=== PATIENT | female | born 1955 | race Caucasian/White ===

== ENCOUNTER → 2019-05-06 08:19 | Outpatient (BNVA) | payer MEDICARE, MEDICAID, SELFPAY | PROVIDERS: Family Provider Family Medicine; PCP Family Medicine; Visit Provider Nurse Practitioner Psychiatric/Mental Health | DX: F33.2 Major depressive disorder, recurrent severe without psychotic features (principal); F41.1 Generalized anxiety disorder; F43.12 Post-traumatic stress disorder, chronic; F17.210 Nicotine dependence, cigarettes, uncomplicated; Z63.4 Disappearance and death of family member | CPT/HCPCS: 99214 ==

== ENCOUNTER 2019-05-08 18:47 | Inpatient (IN) | payer MEDICARE, MEDICAID, SELFPAY ==
[2019-05-08 18:59] VITALS: BP 154/96; PULSE 84; RESP 17; TEMP 36.7; O2SAT 97; BMI 23.1
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
[2019-05-08 19:41] LABS: Basophils # 0.1 10^3/uL (0.0-0.1); Basophils % 0.7 %; Eosinophils # 0.2 10^3/uL (0.0-0.8); Eosinophils % 2.3 %; Hematocrit 42.7 % (37.0-47.0); Hemoglobin 14.1 g/dL (11.5-15.3); Lymphocytes # 2.8 10^3/uL (0.8-4.8); Lymphocytes % 37.4 %; Mean Corpuscular Hemoglobin 32.7 pg (28.0-34.0); Mean Corpuscular Volume 99.1 fL (81-99); Mean Platelet Volume 12.2 fL (7.4-10.4); Monocytes # 0.6 10^3/uL (0.2-0.9); Monocytes % 7.7 %; Neutrophils # 3.8 10^3/uL (1.8-7.7); Neutrophils % 51.8 %; Nucleated Red Blood Cells % 0 %; Platelet Count 196 10^3/cmm (130-400); Red Blood Count 4.31 10^6/uL (4.1-5.3); Red Cell Distribution Width 11.8 % (12.1-15.1); White Blood Count 7.4 10^3/uL (4.0-10.0)
[2019-05-08] MEDS: LORazepam 2 mg/mL INJ 1 mL IM (19:49)
--- NOTE | 2019-05-08 19:51 | PC.NURSE ---
patient refused morphine stating that it makes her itch all over.
[2019-05-08 20:00] VITALS: RESP 16; O2SAT 96
[2019-05-08] MEDS: fentaNYL 50 mcg/mL INJ 2mL IVP (20:00)
[2019-05-08 20:03] VITALS: BP 145/94; PULSE 77; RESP 16; O2SAT 98
--- NOTE | 2019-05-08 20:04 | PC.NURSE ---
fentanyl 50mcg given IM in the right deltoid at 2000
[2019-05-08 20:07] LABS: Alanine Aminotransferase 12 U/L (0-33); Albumin Level 4.9 g/dL (3.5-5.2); Alcohol Level 95 mg/dL (0-10); Alkaline Phosphatase 86 IU/L (35-105); Aspartate Amino Transferase 23 U/L (0-32); Blood Urea Nitrogen 9 mg/dL (8-23); Calcium 10.2 mg/dL (8.5-10.5); Carbon Dioxide 25 mmol/L (22-29); Chloride 103 mmol/L (98-107); Globulin 3.1 g/dL (1.3-4.6); Glomerular Filtration Rate 56.4 mL/min (90-130); Glucose 100 mg/dL (74-106); Sodium 139 mmol/L (136-145); Thyroid Stimulating Hormone 3.64 uIU/mL (0.27-4.20); Total Bilirubin 0.2 mg/dL (0.15-1.2)
[2019-05-08 20:08] LABS: Add Urine Microscopic? NO
[2019-05-08 20:11] LABS: Acetaminophen < 5.0 ug/mL (10-30); Salicylate < 0.3 mg/dL (3-10)
[2019-05-08 20:14] LABS: Amphetamines Screen Urine Negative (Negative); Barbiturates Screen Urine Negative (Negative); Benzodiazepines Screen Urine Positive (Negative); Bilirubin Urine Neg (NEGATIVE); Blood Urine Neg (Negative); Cocaine Screen Urine Negative (Negative); Glucose Urine UA Norm (Normal); Ketones Urine Negative (Negative); Leukocyte Esterase Urine Negative (Negative); Nitrate Urine Negative (Negative); Opiate Screen Urine Negative (Negative); PCP Screen Urine Negative (Negative); Protein Urine Neg (Negative); THC Screen Urine Negative (Negative); Urine Appearance Clear (CLEAR); Urine Color Yellow (Yellow); Urobilinogen Urine Norm (Negative); pH Urine 5 (5-7)
[2019-05-08 21:01] VITALS: PULSE 76; RESP 16; O2SAT 95
[2019-05-08 21:14] VITALS: BP 121/84; PULSE 72; RESP 16; O2SAT 97
--- NOTE | 2019-05-08 21:49 | PC.NURSE ---
Patient asked for something to sleep, walked to nurses station then refused trazodone and went back t her room.
[2019-05-08 22:00] VITALS: BP 137/91; PULSE 74; RESP 17; TEMP 36.7; O2SAT 96
[2019-05-09 06:00] VITALS: BP 125/87; PULSE 79; RESP 18; TEMP 36.7; O2SAT 98
[2019-05-09] MEDS: multivitamin therapeutic Tablet 1 TAB PO (09:13)
[2019-05-09] MEDS: folic acid 1 mg Tablet PO (09:14)
[2019-05-09] MEDS: thiamine 100 mg Tablet PO (09:14)
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
[2019-05-09 13:41] VITALS: O2SAT 87
[2019-05-09] MEDS: venlafaxine ER (24HR) 75 mg Capsule PO (15:48)
[2019-05-09] MEDS: venlafaxine ER (24HR) 150 mg Capsule PO (15:48)
[2019-05-09] MEDS: ALPRAZolam 0.5 mg Tablet PO ×2 (15:49→18:34)
[2019-05-09] MEDS: metoprolol tartrate 25 mg Tablet PO (17:33)
[2019-05-09] MEDS: trazodone 150 mg Tablet 300 MG PO (20:57)
[2019-05-09 22:00] VITALS: BP 135/88; PULSE 70; RESP 20; TEMP 36.8; O2SAT 96
[2019-05-10] MEDS: venlafaxine ER (24HR) 150 mg Capsule PO (05:54)
[2019-05-10] MEDS: venlafaxine ER (24HR) 75 mg Capsule PO (05:54)
[2019-05-10 06:00] VITALS: BP 127/85; PULSE 76; RESP 18; TEMP 36.7; O2SAT 96
[2019-05-10] MEDS: metoprolol tartrate 25 mg Tablet PO ×2 (08:36→17:47)
[2019-05-10] MEDS: thiamine 100 mg Tablet PO (08:36)
[2019-05-10] MEDS: ALPRAZolam 0.5 mg Tablet PO ×2 (08:36→17:47)
[2019-05-10] MEDS: multivitamin therapeutic Tablet 1 TAB PO (08:37)
[2019-05-10] MEDS: folic acid 1 mg Tablet PO (08:37)
[2019-05-10] MEDS: ARIPiprazole 10 mg Tablet 5 MG PO (08:39)
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
[2019-05-10 14:00] VITALS: BP 137/91; PULSE 80; RESP 16; TEMP 36.9; O2SAT 97
[2019-05-10] MEDS: trazodone 150 mg Tablet 300 MG PO (20:53)
[2019-05-10 21:15] VITALS: BP 116/58; PULSE 77; RESP 20; TEMP 36.8; O2SAT 95
[2019-05-11 06:00] VITALS: BP 115/76; PULSE 87; RESP 20; TEMP 36.8; O2SAT 96
[2019-05-11] MEDS: venlafaxine ER (24HR) 150 mg Capsule PO (06:13)
[2019-05-11] MEDS: venlafaxine ER (24HR) 75 mg Capsule PO (07:55)
[2019-05-11] MEDS: metoprolol tartrate 25 mg Tablet PO (08:42)
[2019-05-11] MEDS: thiamine 100 mg Tablet PO (08:42)
[2019-05-11] MEDS: multivitamin therapeutic Tablet 1 TAB PO (08:42)
[2019-05-11] MEDS: ALPRAZolam 0.5 mg Tablet PO (08:43)
[2019-05-11] MEDS: ARIPiprazole 10 mg Tablet 5 MG PO (08:43)
[2019-05-11] MEDS: folic acid 1 mg Tablet PO (08:43)
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
[2019-05-11 12:18] VITALS: BP 115/76; PULSE 87; RESP 20; TEMP 36.8; O2SAT 96
[2019-05-11 12:21] VITALS: BP 115/76; PULSE 87; RESP 20; TEMP 36.8; O2SAT 96
== END 2019-05-11 13:32 | disposition home or self-care (01) | DRG 885 ==
LOC: ER 19:10 → NP 20:59
PROVIDERS: Admitting Provider Psychiatry & Neurology Psychiatry; Emergency Provider Family Medicine; Family Provider Family Medicine; PCP Family Medicine; Visit Provider Psychiatry & Neurology Psychiatry
DX: F33.2 Major depressive disorder, recurrent severe without psychotic features (principal); R45.851 Suicidal ideations; F41.1 Generalized anxiety disorder; F43.12 Post-traumatic stress disorder, chronic; Z63.4 Disappearance and death of family member; F17.210 Nicotine dependence, cigarettes, uncomplicated
CPT/HCPCS: 12345; 80053; 80307; 81003; 84443; 85025; 96372; 96374; 99214; 99284; J2060; J3010

== ENCOUNTER → 2019-06-15 11:55 | Outpatient (BNVA) | payer MEDICARE, MEDICAID, SELFPAY | PROVIDERS: Family Provider Family Medicine; PCP Family Medicine; Visit Provider Family Medicine | DX: I10 Essential (primary) hypertension (principal); E11.9 Type 2 diabetes mellitus without complications; M54.40 Lumbago with sciatica, unspecified side | CPT/HCPCS: 80053; 80061; 82044; 85025 ==

== ENCOUNTER → 2019-06-17 08:35 | Outpatient (BNVA) | payer MEDICARE, MEDICAID, SELFPAY | PROVIDERS: Family Provider Family Medicine; PCP Family Medicine; Visit Provider Nurse Practitioner Psychiatric/Mental Health | DX: F33.2 Major depressive disorder, recurrent severe without psychotic features (principal); F41.1 Generalized anxiety disorder; F43.12 Post-traumatic stress disorder, chronic; F17.210 Nicotine dependence, cigarettes, uncomplicated; Z63.4 Disappearance and death of family member | CPT/HCPCS: 83036; 99214 ==

== ENCOUNTER → 2019-07-13 08:44 | Outpatient (BNVA) | payer MEDICARE, MEDICAID, SELFPAY | PROVIDERS: Family Provider Family Medicine; PCP Family Medicine; Visit Provider Nurse Practitioner Psychiatric/Mental Health | DX: F33.2 Major depressive disorder, recurrent severe without psychotic features (principal); F41.1 Generalized anxiety disorder; F43.12 Post-traumatic stress disorder, chronic; F17.210 Nicotine dependence, cigarettes, uncomplicated; Z63.4 Disappearance and death of family member | CPT/HCPCS: 99214 ==

== ENCOUNTER → 2019-08-10 08:15 | Outpatient (BNVA) | payer MEDICARE, MEDICAID, SELFPAY | PROVIDERS: Family Provider Family Medicine; PCP Family Medicine; Visit Provider Nurse Practitioner Psychiatric/Mental Health | DX: F33.2 Major depressive disorder, recurrent severe without psychotic features (principal); F41.1 Generalized anxiety disorder; F43.12 Post-traumatic stress disorder, chronic; F17.210 Nicotine dependence, cigarettes, uncomplicated; Z63.4 Disappearance and death of family member | CPT/HCPCS: 99214 ==

== ENCOUNTER → 2019-09-07 08:11 | Outpatient (BNVA) | payer MEDICARE, MEDICAID, SELFPAY ==
[2019-06-22 14:36] VITALS: BP 116/83; BMI 22.4
== END ==
PROVIDERS: Family Provider Family Medicine; PCP Family Medicine; Visit Provider Nurse Practitioner Psychiatric/Mental Health
DX: E78.5 Hyperlipidemia, unspecified (principal); F33.2 Major depressive disorder, recurrent severe without psychotic features; F41.1 Generalized anxiety disorder; F43.12 Post-traumatic stress disorder, chronic; F17.210 Nicotine dependence, cigarettes, uncomplicated; Z63.4 Disappearance and death of family member
CPT/HCPCS: 80053; 99214

== ENCOUNTER → 2019-10-07 07:40 | Outpatient (BNVA) | payer MEDICARE, MEDICAID, SELFPAY ==
[2019-09-07 08:30] VITALS: BP 116/83; BMI 22.4
== END ==
PROVIDERS: Family Provider Family Medicine; PCP Family Medicine; Visit Provider Nurse Practitioner Psychiatric/Mental Health
DX: F33.2 Major depressive disorder, recurrent severe without psychotic features (principal); F41.1 Generalized anxiety disorder; F43.12 Post-traumatic stress disorder, chronic; F17.210 Nicotine dependence, cigarettes, uncomplicated; Z63.4 Disappearance and death of family member; F33.42 Major depressive disorder, recurrent, in full remission
CPT/HCPCS: 99214

== ENCOUNTER → 2019-10-19 13:02 | Outpatient (BNVA) | payer MEDICARE, MEDICAID, SELFPAY ==
[2019-09-07 08:30] VITALS: BP 116/83; BMI 22.4
== END ==
PROVIDERS: Family Provider Family Medicine; PCP Family Medicine; Visit Provider Family Medicine
DX: E78.5 Hyperlipidemia, unspecified (principal); N26.1 Atrophy of kidney (terminal); F17.210 Nicotine dependence, cigarettes, uncomplicated
CPT/HCPCS: 80053; 80061

== ENCOUNTER 2019-10-20 07:25 | Outpatient (CLI) | payer MEDICARE, MEDICAID, SELFPAY ==
[2019-09-07 08:30] VITALS: BP 116/83; BMI 22.4
--- NOTE | 2019-10-20 08:30 | CT_ITS ---
WS: [id number] LDCT LUNG CANCER SCREENING TECHNIQUE: Noncontrast CT of the chest with coronal and sagittal reformatted images. CLINICAL INFORMATION: CT LUNG SCREENING COMPARISON: None. DLP: 81.71 mGy.cm DIvol: 2.[address] scans at [facility] use at least one of these dose optimization techniques: automat ed exposure control; mA and/or kV adjustment per patient size (includes targeted exams where dose is matched to clinical indication); or iterative reconstruction. FINDINGS: No suspicious pulmonary parenchymal abnormalities. Subsegmental atelectasis in the lung bases. No med iastinal or hilar lymphadenopathy. Vascular calcification no axillary lymphadenopathy. Mild compressi on fracture L1 superior endplate. Recommend correlation for low back pain. This appears new since CT abdomen pelvis CT/CT lung screening [id number] IMPRESSION: LUNG-RADS: 1-Negative FOLLOW UP: 12 Month: Continue annual screening with LDCT
--- NOTE | 2019-10-20 08:55 | MM_ITS ---
WS: [id number] Bilateral screening digital mammogram, 10/20/2019 Clinical Data: SCREENING Comparison: 09/30/2018, 09/11/2017, 08/21/2017, 08/12/2016. Findings: The breast parenchymal pattern shows fibroglandular tissue. No spiculated masses or clustered calcifi cations are seen. There are no secondary signs of carcinoma. MM/[place] [id number] Impression: 1. Negative bilateral mammogram unchanged. 2. Recommend annual screening mammograms. BIRADS: 1-Negative FOLLOW UP: 1 Year Follow-up The CAD relay checker was used.
== END 2019-10-20 07:26 | disposition home or self-care (01) ==
LOC: CT 07:26
PROVIDERS: PCP Family Medicine; Visit Provider Family Medicine
DX: Z12.31 Encounter for screening mammogram for malignant neoplasm of breast (principal); F17.210 Nicotine dependence, cigarettes, uncomplicated
CPT/HCPCS: 77067; G0297

== ENCOUNTER → 2019-11-04 07:26 | Outpatient (BNVA) | payer MEDICARE, MEDICAID, SELFPAY ==
[2019-09-07 08:30] VITALS: BP 116/83; BMI 22.4
== END ==
PROVIDERS: PCP Family Medicine; Visit Provider Nurse Practitioner Psychiatric/Mental Health
DX: F33.2 Major depressive disorder, recurrent severe without psychotic features (principal); F41.1 Generalized anxiety disorder; F43.12 Post-traumatic stress disorder, chronic; F17.210 Nicotine dependence, cigarettes, uncomplicated; Z63.4 Disappearance and death of family member
CPT/HCPCS: 99214

== ENCOUNTER → 2019-12-09 10:26 | Outpatient (BNVA) | payer MEDICARE, MEDICAID, SELFPAY ==
[2019-09-07 08:30] VITALS: BP 116/83; BMI 22.4
== END ==
PROVIDERS: PCP Family Medicine; Visit Provider Nurse Practitioner Psychiatric/Mental Health
DX: F33.2 Major depressive disorder, recurrent severe without psychotic features (principal); F41.1 Generalized anxiety disorder; F43.12 Post-traumatic stress disorder, chronic; F17.210 Nicotine dependence, cigarettes, uncomplicated; Z63.4 Disappearance and death of family member
CPT/HCPCS: 99213

== ENCOUNTER → 2020-01-11 11:07 | Outpatient (BNVA) | payer MEDICARE, MEDICAID, SELFPAY ==
[2019-09-07 08:30] VITALS: BP 116/83; BMI 22.4
== END ==
PROVIDERS: PCP Family Medicine; Visit Provider Family Medicine
DX: I10 Essential (primary) hypertension (principal)
CPT/HCPCS: 80053; 80061; 82043; 85025

== ENCOUNTER → 2020-02-15 07:47 | Outpatient (BNVA) | payer MEDICARE, MEDICAID, SELFPAY ==
[2019-09-07 08:30] VITALS: BP 116/83; BMI 22.4
== END ==
PROVIDERS: PCP Family Medicine; Visit Provider Nurse Practitioner Psychiatric/Mental Health
DX: F33.2 Major depressive disorder, recurrent severe without psychotic features (principal); F41.1 Generalized anxiety disorder; F43.12 Post-traumatic stress disorder, chronic; F17.210 Nicotine dependence, cigarettes, uncomplicated; Z63.4 Disappearance and death of family member
CPT/HCPCS: 99213

== ENCOUNTER → 2020-05-16 07:36 | Outpatient (BNVA) | payer MEDICARE, MEDICAID, SELFPAY ==
[2019-09-07 08:30] VITALS: BP 116/83; BMI 22.4
== END ==
PROVIDERS: PCP Family Medicine; Visit Provider Nurse Practitioner Psychiatric/Mental Health
DX: F33.2 Major depressive disorder, recurrent severe without psychotic features (principal); F41.1 Generalized anxiety disorder; F43.12 Post-traumatic stress disorder, chronic; F17.210 Nicotine dependence, cigarettes, uncomplicated; Z63.4 Disappearance and death of family member; Z79.899 Other long term (current) drug therapy
CPT/HCPCS: 99214

== ENCOUNTER → 2020-07-04 11:08 | Outpatient (BNVA) | payer OTHER, SELFPAY ==
[2019-09-07 08:30] VITALS: BP 116/83; BMI 22.4
== END ==
PROVIDERS: PCP Family Medicine; Visit Provider Nurse Practitioner Psychiatric/Mental Health
DX: Z79.899 Other long term (current) drug therapy (principal)
CPT/HCPCS: 80061; 83036

== ENCOUNTER → 2020-11-01 07:04 | Outpatient (BNVA) | payer MEDICARE, MEDICAID, SELFPAY ==
[2020-07-05 09:54] VITALS: BP 123/86; BMI 20.9
== END ==
PROVIDERS: PCP Family Medicine; Visit Provider Nurse Practitioner Psychiatric/Mental Health
DX: F33.2 Major depressive disorder, recurrent severe without psychotic features (principal); F41.1 Generalized anxiety disorder; F43.12 Post-traumatic stress disorder, chronic; F17.210 Nicotine dependence, cigarettes, uncomplicated; Z63.4 Disappearance and death of family member
CPT/HCPCS: 99214

== ENCOUNTER → 2021-01-01 07:26 | Outpatient (BNVA) | payer MEDICARE, MEDICAID, SELFPAY ==
[2020-07-05 09:54] VITALS: BP 123/86; BMI 20.9
== END ==
PROVIDERS: PCP Family Medicine; Visit Provider Nurse Practitioner Psychiatric/Mental Health
DX: F33.2 Major depressive disorder, recurrent severe without psychotic features (principal); F41.1 Generalized anxiety disorder; F43.12 Post-traumatic stress disorder, chronic; F17.210 Nicotine dependence, cigarettes, uncomplicated; Z63.4 Disappearance and death of family member
CPT/HCPCS: 99214

== ENCOUNTER → 2021-01-12 13:47 | Outpatient (BNVA) | payer MEDICARE, MEDICAID, SELFPAY ==
[2020-07-05 09:54] VITALS: BP 123/86; BMI 20.9
== END ==
PROVIDERS: PCP Family Medicine; Visit Provider Family Medicine
DX: I10 Essential (primary) hypertension (principal); N39.41 Urge incontinence; R60.0 Localized edema
CPT/HCPCS: 80053; 82043; 85025

== ENCOUNTER → 2021-03-08 08:24 | Outpatient (BNVA) | payer MEDICARE, MEDICAID, SELFPAY ==
[2020-07-05 09:54] VITALS: BP 123/86; BMI 20.9
== END ==
PROVIDERS: PCP Family Medicine; Visit Provider Nurse Practitioner Psychiatric/Mental Health
DX: F33.2 Major depressive disorder, recurrent severe without psychotic features (principal); F41.1 Generalized anxiety disorder; F43.12 Post-traumatic stress disorder, chronic; F17.210 Nicotine dependence, cigarettes, uncomplicated; Z63.4 Disappearance and death of family member
CPT/HCPCS: 99214

== ENCOUNTER → 2021-04-19 07:41 | Outpatient (BNVA) | payer MEDICARE, MEDICAID, SELFPAY ==
[2020-07-05 09:54] VITALS: BP 123/86; BMI 20.9
== END ==
PROVIDERS: PCP Family Medicine; Visit Provider Nurse Practitioner Psychiatric/Mental Health
DX: F33.2 Major depressive disorder, recurrent severe without psychotic features (principal); F41.1 Generalized anxiety disorder; F43.12 Post-traumatic stress disorder, chronic; F17.210 Nicotine dependence, cigarettes, uncomplicated; Z63.4 Disappearance and death of family member
CPT/HCPCS: 99214

== ENCOUNTER → 2021-06-21 07:40 | Outpatient (BNVA) | payer MEDICARE, MEDICAID, SELFPAY ==
[2020-07-05 09:54] VITALS: BP 123/86; BMI 20.9
== END ==
PROVIDERS: PCP Family Medicine; Visit Provider Nurse Practitioner Psychiatric/Mental Health
DX: F33.2 Major depressive disorder, recurrent severe without psychotic features (principal); F41.1 Generalized anxiety disorder; F43.12 Post-traumatic stress disorder, chronic; F17.210 Nicotine dependence, cigarettes, uncomplicated; Z63.4 Disappearance and death of family member
CPT/HCPCS: 99214

== ENCOUNTER → 2021-08-08 13:52 | Outpatient (BNVA) | payer MEDICARE, MEDICAID, SELFPAY ==
[2020-07-05 09:54] VITALS: BP 123/86; BMI 20.9
== END ==
PROVIDERS: PCP Family Medicine; Visit Provider Family Medicine
DX: I10 Essential (primary) hypertension (principal); E78.5 Hyperlipidemia, unspecified; K64.8 Other hemorrhoids
CPT/HCPCS: 80053; 80061; 82043; 85025

== ENCOUNTER → 2021-09-14 09:48 | Outpatient (BNVA) | payer MEDICARE, MEDICAID, SELFPAY ==
[2020-07-05 09:54] VITALS: BP 123/86; BMI 20.9
== END ==
PROVIDERS: PCP Family Medicine; Visit Provider Nurse Practitioner Psychiatric/Mental Health
DX: F33.2 Major depressive disorder, recurrent severe without psychotic features (principal); F41.1 Generalized anxiety disorder; F43.12 Post-traumatic stress disorder, chronic; F17.210 Nicotine dependence, cigarettes, uncomplicated; Z79.899 Other long term (current) drug therapy; Z63.4 Disappearance and death of family member
CPT/HCPCS: 99214

== ENCOUNTER 2021-11-05 15:19 | Inpatient (IN) | payer MEDICARE, MEDICAID, SELFPAY ==
[2020-07-05 09:54] VITALS: BP 123/86; BMI 20.9
[2021-11-05] VITALS (9 sets, daily range): BP systolic 106–129; BP diastolic 52–100; PULSE 114–137; RESP 12–20; TEMP 36.7; O2SAT 93–98; BMI 22.6; BMI 22.3
--- NOTE | 2021-11-05 16:43 | ECG_ITS ---
[facility] Test Date: 2021-11-05 Pat Name: Isabelle Lenz Department: Room: Gender: Female Obiee Architect: : 1955 Requested By: Blayne Britton Order Number: [id number] Kobi MD: Desean Alexis M.D. Measurements Intervals [place] Rate: 137 P: PA: QRS: 42 QRSD: 143 T: 71 QT: 305 QTc: 461 Interpretive Statements ATRIAL FLUTTER/TACHYCARDIA WITH RAPID VENTRICULAR RESPONSE INTRAVENTRICULAR CONDUCTION DELAY [130+ ms QRS DURATION] Compared to ECG 01/29/2019 01:34:56 Intraventricular conduction delay now present Sinus rhythm no longer present ST (T wave) deviation no longer present Early repolarization no longer present Electronically Signed On 11-06-2021 7:10:32 CDT by Desean Alexis M.D. [id number] f
--- NOTE | 2021-11-05 16:56 | XRR_ITS ---
PROCEDURE INFORMATION: Exam: XR Chest Exam date and time: 11/05/2021 5:11 PM Age: 65 years old Clinical indication: Cough and dyspnea; Additional info: Dyspnea/cough TECHNIQUE: Imaging protocol: Radiologic exam of the chest. Views: 1 view. COMPARISON: CR Chest 2 views* [id number] 01/29/2019 1:16 AM FINDINGS: Lungs: Emphysematous changes suspected. Pleural spaces: Unremarkable. No pleural effusion. No pneumothorax. Heart/Mediastinum: Unremarkable. No cardiomegaly. Bones/joints: Sternotomy wires, the lower 2 of which appear fractured, similar to prior exam. XR/XR chest 1V portable [id number] IMPRESSION: 1. Negative for infiltrate. 2. Emphysematous changes suspected.
[2021-11-05] MEDS: esmolol drip 2,500 MG/250 ML PREMIX IV (17:23)
--- NOTE | 2021-11-05 17:30 | W.ED.SOB ---
HPI - SOB/Dyspnea General: Chief Complaint: Shortness of Breath/Dyspnea Stated Complaint: right hand and arm pain Time Seen by Provider: 11/05/21 16:43 Source: patient Mode of arrival: ambulatory Limitations: no limitations History of Present Illness: HPI Narrative: 65-year-old female presents emergency room with complaints of chest discomfort with activity. Patient has a known history of coronary artery disease and today presents in the emergency room in [facility] with RVR. She is on metoprolol 12.5 twice daily she does not ever recall having been told she is in A. fib in the past. She has known history of heart disease and previously had a coronary bypass graft she has not seen cardiology for some time. On arrival she states she is comfortable as long as she remained seated but with any minimal activity she will get short of breath and has some chest discomfort. The symptoms began yesterday. MD elicited complaint: shortness of breath and chest pain Pertinent past history: other (History of coronary artery disease) Onset (ago): day(s) Context: occurred during exertion Timing: intermittent Severity: moderate Exacerbating factors: exertion Relieving factors: rest Known history of: COPD Associated symptoms: Reports chest pain; Deny abdominal pain, chest congestion, cough, diaphoresis, dizziness, extremity pain, fever(s), hemoptysis, lightheadedness, myalgias, nausea, orthopnea, palpitations, paresthesias, polydipsia, polyuria, rash, sense of impending doom, syncope or vomiting Treatment prior to arrival: none Review of Systems Const: Denies: fever(s), chills, fatigue, malaise or diaphoresis ENMT: Denies: throat pain, ear or mastoid pain, nasal discharge or nasal congestion Card: Reports: chest pain; Denies: palpitations, lightheadedness, syncope or orthopnea Resp: Denies: dyspnea, productive cough, non-productive cough, wheezing, hemoptysis or chest congestion GI: Denies: abdominal pain, nausea or vomiting : Denies: flank pain, difficulty voiding, dysuria, urinary frequency or urinary urgency Musc: Denies: neck pain, back pain or extremity pain Skin/Breast: Denies: rash or pruritus Neuro: Denies: dizziness Endo: Denies: polyuria or polydipsia PFSH ED PFSH: Medical History Benign essential HTN Bereavement Chronic low back pain with sciatica Chronic post-traumatic stress disorder Enrolled in chronic care management Generalized anxiety disorder Major depressive disorder, recurrent severe without psychotic features Psychiatric care Smoking addiction Surgical History H/O total hysterectomy History of back surgery History of ear surgery History of open heart surgery No pertinent past surgical history Family History Father Heart disease Grandmother Cancer Brother Hepatitis B Other CAD (coronary artery disease) Diabetes Hyperlipidemia Hypertension Psychiatric illness Social History Smoking and tobacco status: current every day smoker cigarettes Packs smoked per day: 1 Years cigarettes smoked: 1 Quit status (tobacco): has tried quititng Number of times tried to quit tobacco: 1 Second hand smoke exposure: Yes Smoking risk assessment/counseling performed?: No Alcohol intake: former Year of sobriety/quit date alcohol: 2020 Desire information about alcohol rehabilitation?: No Adopted: No Caregiver/support person: No Lives independently: Yes Household members: family Housing: House Marital status: / Number of children: 3 Number of grandchildren: 5 Highest education level completed: Associate Degree: Occupational, Technical, Vocational Program Education level 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 ([employer] [facility]) Known or Potential Exposure: None Current occupational status: disabled Pets and animals: Yes Pets & animals: cat(s), dog(s) and guinea pig(s) History of recent travel: No Leisure activites: art and volunteer work Sexually active: No Current gender identity: Female Sharon/Caodaism: Episcopalian Special sharon needs: No Agree to transfusion: Yes Financial difficulty paying for basics: Not Very Hard Female Reproductive History: Para: 3 Spontaneous abortions: Yes Physical Exam Const: GENERAL APPEARANCE: cooperative and comfortable ORIENTATION/CONSCIOUSNESS: Yes awake, Yes oriented to person, Yes oriented to place and Yes oriented to time HENMT: COMMON NORMALS: normocephalic, atraumatic and hearing grossly normal bilaterally HEAD & SCALP: normocephalic and atraumatic Resp: COMMON NORMALS: normal respiratory effort, No retractions, No use of accessory muscles and clear to auscultation bilaterally AUSCULTATION: clear to auscultation bilaterally Cardio: RATE: tachycardic RHYTHM: abnormal rhythm irregularly irregular GI: COMMON NORMALS: Soft to palpation and No hepatosplenomegaly present AUSCULTATION: Yes normoactive bowel sounds PALPATION: Yes Soft to palpation, No Tenderness to palpation present (GI), No Guarding due to palpation present (GI) and Yes No hepatosplenomegaly present Extremity: COMMON NORMALS: normal to inspection, capillary refill normal, no clubbing, cyanosis or edema, no calf tenderness and no pedal edema Neuro: SENSORIUM/ORIENTATION: Yes oriented to person, Yes oriented to place and Yes oriented to time Skin: COMMON NORMALS: no rashes or lesions noted GENERAL SKIN EXAM: no rashes or lesions noted Course Vital Signs: Vital signs: Vital Signs Temperature 98.0 F 11/10/21 12:00 Pulse Rate 66 11/10/21 13:00 Respiratory Rate 16 11/10/21 13:00 Blood Pressure 140/83 11/10/21 13:00 Pulse Oximetry 100 11/10/21 13:00 Oxygen Delivery Me thod 11/10/21 08:00 MDM - SOB/Dyspnea Medical Decision Making New onset A. fib flutter. Started on esmolol. EKG labs and imaging reviewed patient has a history of coronary disease only to be ruled out discussed with hospitalist orders written Medical Records I reviewed the patient's medical records. Lab Data I reviewed the patient's lab results. : 11/09/21 03:03 11/10/21 05:55 Labs/Radiology: Radiology Impressions Chest X-Ray 11/05/21 16:56 IMPRESSION: 1. Negative for infiltrate. 2. Emphysematous changes suspected. Laboratory Results WBC 6.5 10^3/uL (4.0-10.0) 11/05/21 19:48 Corrected WBC Cancelled 11/05/21 18:10 RBC 4.92 10^6/uL (4.1-5.3) 11/05/21 19:48 Hgb 15.0 g/dL (11.5-15.3) 11/05/21 19:48 Hct 43.9 % (37.0-47.0) 11/05/21 19:48 MCV 89.2 fl (81-99) 11/05/21 19:48 MCH 30.5 pg (28.0-34.0) 11/05/21 19:48 MCHC 34.2 g/dL (30.0-36.0) 11/05/21 19:48 RDW 12.9 % (12.1-15.1) 11/05/21 19:48 Plt Count 237 10^3/cmm (130-400) 11/05/21 19:48 MPV 11.4 fL (7.4-10.4) H 11/05/21 19:48 Gran % Cancelled 11/05/21 18:10 Neut % (Auto) 47.3 % 11/05/21 19:48 Lymph % (Auto) 39.6 % 11/05/21 19:48 [place] % (Auto) 10.9 % 11/05/21 19:48 Eos % (Auto) 1.7 % 11/05/21 19:48 Baso % (Auto) 0.5 % 11/05/21 19:48 Neut # (Auto) 3.09 10^3/uL (1.8-7.7) 11/05/21 19:48 Lymph # (Auto) 2.6 10^3/uL (0.8-4.8) 11/05/21 19:48 [place] # (Auto) 0.7 10^3/uL (0.2-0.9) 11/05/21 19:48 Eos # (Auto) 0.1 10^3/uL (0.0-0.8) 11/05/21 19:48 Baso # (Auto) 0.0 10^3/uL (0.0-0.1) 11/05/21 19:48 Absolute Gran (auto) Cancelled 11/05/21 18:10 Nucleated RBC % (auto) 0 % 11/05/21 19:48 Nucleated RBCs # 0.0 /100WBC 11/05/21 19:48 PT 12.40 SECONDS (12.1-14.9) 11/05/21 18:10 INR 0.90 (0.8-1.2) 11/05/21 18:10 APTT 21.1 SECONDS (23.9-36.7) L 11/05/21 18:10 D-Dimer 5.67 ug/mIFEU (0-0.59) H 11/05/21 18:10 Sodium 134 mmol/L (136-145) L 11/05/21 19:48 Potassium 3.3 mmol/L (3.5-5.1) L 11/05/21 19:48 Chloride 97 mmol/L (98-107) L 11/05/21 19:48 Carbon Dioxide 22 mmol/L (22-29) 11/05/21 19:48 Anion Gap 18.3 (5-19) 11/05/21 19:48 BUN 17 mg/dL (8-23) 11/05/21 19:48 Creatinine 1.1 mg/dL (0.5-0.9) H 11/05/21 19:48 GFR Calculation 50.2 mL/min (90-130) L 11/05/21 19:48 Glucose 101 mg/dL (65-115) 11/05/21 19:48 Calculated Osmolality 280 mOsm/kg (285-295) L 11/05/21 19:48 Calcium 9.4 mg/dL (8.5-10.5) 11/05/21 19:48 Magnesium 2.0 mg/dL (1.7-2.3) 11/05/21 19:48 Total Bilirubin 0.5 mg/dL (0.15-1.2) 11/05/21 19:48 AST 20 U/L (0-32) 11/05/21 19:48 ALT 12 U/L (0-33) 11/05/21 19:48 Alkaline Phosphatase 107 IU/L (35-105) H 11/05/21 19:48 Creatine Kinase 100 U/L (26-192) 11/05/21 19:48 Troponin T Baseline 13 ng/L (0-10) H 11/05/21 19:48 Troponin T 120 Minute 12.96 ng/L (0-10) H 11/05/21 21:41 Delta Troponin T -0.04 ABS# (0-10) L 11/05/21 21:41 Troponin T Hi Sens 6Hr 12.71 ng/L (0-10) H 11/05/21 00:40 Troponin T Hi Sens 6Hr Delta -0.29 ng/L (0-12) L 11/05/21 00:40 Total Protein 7.3 g/dL (6.6-8.7) 11/05/21 19:48 Albumin 4.2 g/dL (3.5-5.2) 11/05/21 19:48 Globulin 3.1 g/dL (1.3-4.6) 11/05/21 19:48 Discharge Plan Discharge Patient Disposition: Admitted As Inpatient Admit Provider: Phill Wise Clinical Impression: Atrial fibrillation/flutter, History of coronary artery disease Condition: Stable Coding Level of Care Code ED Wearing Apparel Assembler for Chg Fwd Exam Detailed
[2021-11-05 20:04] LABS: Basophils % 0.5 %; Eosinophils # 0.1 10^3/uL (0.0-0.8); Eosinophils % 1.7 %; Hematocrit 43.9 % (37.0-47.0); Lymphocytes # 2.6 10^3/uL (0.8-4.8); Lymphocytes % 39.6 %; Mean Corpuscular HGB Conc 34.2 g/dL (30.0-36.0); Mean Corpuscular Hemoglobin 30.5 pg (28.0-34.0); Mean Corpuscular Volume 89.2 fl (81-99); Mean Platelet Volume 11.4 fL (7.4-10.4); Monocytes # 0.7 10^3/uL (0.2-0.9); Monocytes % 10.9 %; Neutrophils # 3.09 10^3/uL (1.8-7.7); Neutrophils % 47.3 %; Nucleated Red Blood Cells % 0 %; Platelet Count 237 10^3/cmm (130-400); Red Blood Count 4.92 10^6/uL (4.1-5.3); Red Cell Distribution Width 12.9 % (12.1-15.1); White Blood Count 6.5 10^3/uL (4.0-10.0)
[2021-11-05] MEDS: esmolol drip 2,500 MG/250 ML PREMIX 19.05 MG IV (20:05)
--- NOTE | 2021-11-05 20:31 | PM.HP ---
Providers/Chief Complaint Primary Care Provider: Genie Vences DO Chief Complaint: right hand and arm pain History of Present Illness 65-year-old lady with history of congenital heart disease, open heart surgery at the age of 9, HTN, smoking addiction, other chronic comorbidities experienced lightheadedness, exertional limitation, chest discomfort, especially with activity. Noticed some bruising of her extremities. Denies any past history of atrial fibrillation which was noted in ER. A. fib with RVR noted with heart rates 130s up to 140s for which she was started on esmolol drip. Denies history of [place] or coronary stenting. Never had a stress test. Review of Systems Const: Denies: fever(s), chills, body aches or malaise Eyes: Denies: change in vision, eye discomfort or eye redness ENMT: Denies: throat pain, oral sores or ear or mastoid pain Card: Reports: chest pain, palpitations, irregular heart rhythm, lightheadedness, dyspnea on exertion and acrocyanosis; Denies: edema or pre-syncope Resp: Denies: dyspnea, productive cough, change in phlegm color or hemoptysis GI: Denies: abdominal pain, nausea, vomiting, diarrhea, constipation, hematochezia or melena : Denies: flank pain, urinary frequency or hematuria Musc: Denies: back pain, joint swelling or joint redness Skin/Breast: Denies: rash or new lesions Neuro: Denies: headache(s), numbness in extremities, weakness in extremities, dizziness, confusion or seizure-like activity Endo: Denies: polyuria or polydipsia Sander/Lymph: Denies: easy bleeding or tender lymph nodes All/Imm: Denies: urticaria or tongue swelling Medications/Allergies Home Medications Medication Instructions Recorded Confirmed Last Taken Type ibuprofen 200 mg capsule 800 mg PO Q6H PRN pain 05/06/19 11/05/21 Unknown History [id number] 1 tab PO DAILY 05/08/19 11/05/21 11/05/21 History 18 mg-10 mg-45 mg-5 mg-250 mg tablet (B Complex w-Vit C) turmeric 400 mg capsule 400 mg PO DAILY 11/03/19 11/05/21 11/05/21 History alprazolam 0.5 mg tablet 0.5 mg PO BID PRN anxiety #60 tabs 06/21/21 11/05/21 Unknown Rx oxybutynin chloride 5 mg tablet 5 mg PO BID 90 days #180 tabs 08/08/21 11/05/21 11/05/21 Rx atorvastatin 20 mg tablet 20 mg PO DAILY #30 tabs 08/09/21 11/05/21 11/05/21 Rx trazodone 150 mg tablet 150 mg PO DIRECTED PRN sleep 08/09/21 11/05/21 Unknown Rx #180 tabs venlafaxine 150 mg 150 mg PO QAM #90 caps 11/02/21 11/05/21 11/05/21 Rx capsule,extended release 24 hr (Effexor XR) venlafaxine 75 mg capsule,extended 75 mg PO QAM #90 caps 11/02/21 11/05/21 11/05/21 Rx release 24 hr (Effexor XR) albuterol sulfate 90 mcg/actuation 2 puff inhalation Q6H PRN 11/05/21 11/05/21 Unknown History aerosol inhaler Shortness Of Breath aripiprazole 5 mg tablet (Abilify) 5 mg PO DAILY 11/05/21 11/05/21 11/05/21 History calcium carbonate 600 mg-vitamin 1 tab PO DAILY 11/05/21 11/05/21 11/05/21 History D3 10 mcg (400 unit) tablet elderberry fruit 460 mg-elderberry 1 cap PO DAILY 11/05/21 11/05/21 11/05/21 History flower 115 mg capsule gabapentin 300 mg capsule 300 mg PO BEDTIME 11/05/21 11/05/21 11/04/21 History hydrochlorothiazide 25 mg tablet 25 mg PO DAILY 11/05/21 11/05/21 11/05/21 History melatonin 3 mg capsule 3 mg PO BEDTIME sleep 11/05/21 11/05/21 11/04/21 History metoprolol tartrate 25 mg tablet 25 mg PO DAILY 11/05/21 11/05/21 11/05/21 History Allergies Allergy/AdvReac Type Severity Reaction Status Date / Time No Known Allergies Allergy Verified 11/05/21 14:28 PFSH Acute PFSH: Medical History Benign essential HTN Bereavement Chronic low back pain with sciatica Chronic post-traumatic stress disorder Enrolled in chronic care management Generalized anxiety disorder Major depressive disorder, recurrent severe without psychotic features Psychiatric care Smoking addiction Surgical History H/O total hysterectomy History of back surgery History of ear surgery History of open heart surgery No pertinent past surgical history Family History Father Heart disease Grandmother Cancer Brother Hepatitis B Other CAD (coronary artery disease) Diabetes Hyperlipidemia Hypertension Psychiatric illness Social History Smoking and tobacco status: current every day smoker cigarettes Packs smoked per day: 1 Years cigarettes smoked: 1 Quit status (tobacco): has tried quititng Number of times tried to quit tobacco: 1 Second hand smoke exposure: Yes Smoking risk assessment/counseling performed?: No Alcohol intake: former Year of sobriety/quit date alcohol: 2020 Desire information about alcohol rehabilitation?: No Adopted: No Caregiver/support person: No Lives independently: Yes Household members: family Housing: House Marital status: / Number of children: 3 Number of grandchildren: 5 Highest education level completed: Associate Degree: Occupational, Technical, Vocational Program Education level details: [employer], 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: 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 Discharged/Retired branch: [employer] Assignments: Inside [facility] ([facility]) Known or Potential Exposure: None Current occupational status: disabled Pets and animals: Yes Pets & animals: cat(s), dog(s) and guinea pig(s) History of recent travel: No Leisure activites: art and volunteer work Sexually active: No Current gender identity: Female Sharon/Yazdanism: Denominational Special sharon needs: No Agree to transfusion: Yes Financial difficulty paying for basics: Not Very Hard Female Reproductive History: Para: 3 Spontaneous abortions: Yes Vitals/I&O/Wt Last Vital Signs Temp 98.1 F 11/05/21 15:39 Pulse 114 H 11/05/21 20:21 Resp 14 11/05/21 20:21 BP 129/88 11/05/21 20:21 Pulse Ox 98 11/05/21 20:21 O2 Del Method 11/05/21 20:21 11/05/21 11/05/21 11/05/21 06:59 14:59 22:59 Intake Total 23.337 / 23.337 Balance 23.337 / 23.337 Weight last 48 hrs Weight 63.503 kg Physical Exam Narrative: Daughter at bedside Const: COMMON NORMALS: patient oriented x3 and alert GENERAL APPEARANCE: cooperative ORIENTATION/CONSCIOUSNESS: Yes awake HENMT: COMMON NORMALS: oropharynx normal Neck/C-Spine: COMMON NORMALS: no JVD Resp: COMMON NORMALS: normal respiratory effort and clear to auscultation bilaterally AUSCULTATION: clear to auscultation bilaterally Cardio: COMMON NORMALS: no JVD, regular rhythm, S1 normal heart sound present, S2 normal heart sound present and No murmurs present (Cardio) RATE: tachycardic RHYTHM: abnormal rhythm irregularly irregular HEART SOUNDS: S1 normal heart sound present and S2 normal heart sound present GI: COMMON NORMALS: Normal to inspection, nondistended, normoactive bowel sounds present, Soft to palpation and non-tender PALPATION: Yes Soft to palpation Extremity: COMMON NORMALS: no joint enlargement and no pedal edema OTHER: No cyanosis Neuro: COMMON NORMALS: patient oriented x3 and moves all extremities SENSORIUM/ORIENTATION: Yes alert Skin: COMMON NORMALS: no rashes or lesions noted GENERAL SKIN EXAM: no rashes or lesions noted Data : 11/05/21 19:48 11/05/21 19:48 A&P Assessment and plan (1) Atrial fibrillation/flutter: New A. fib with RVR. Assess TSH. D-dimer. Complete troponin EKG series. Once heart rate better controlled assess TTE. Continue to monitor. Resume home metoprolol. This prescription with her daughter, they are concerned regarding easy bleeding, but would want long-term anticoagulation, however, would like to check INR, PTT first. Hold anticoagulation for now, start only prophylactic just now until other tests are available. Status: Acute (2) Chest pain: Chest discomfort particular with exertion, with tachycardia episodes yesterday and today. Has had some exertional limitation over the last 2 weeks or so. Complete troponin EKG series. Additional assessment by TTE once heart rate is better controlled. Has never had a stress test, would benefit from stress testing once heart rate under control. Pain-free currently. Status: Acute (3) Smoking addiction: Discussed smoking cessation for 4 minutes patient intends on quitting. Nicotine replacement with nicotine patches, nicotine lozenges. Continue to encourage cessation. Status: Acute Plan HTN And other chronic problems Attestations Medical Necessity Statement*: Admission of over 2 midnights is anticipated for assessment and management of new A. fib with RVR, episodes of chest pain. Coding Level of Care Code Acute Flash Welder for Tayo Thorne Diagnoses Atrial fibrillation/flutter Chest pain R07.9 Smoking addiction F17.200
[2021-11-05 20:32] LABS: Troponin(5th) Baseline 13 ng/L (0-10)
[2021-11-05 20:35] LABS: Alanine Aminotransferase 12 U/L (0-33); Albumin Level 4.2 g/dL (3.5-5.2); Alkaline Phosphatase 107 IU/L (35-105); Anion Gap 18.3 (5-19); Aspartate Amino Transferase 20 U/L (0-32); Blood Urea Nitrogen 17 mg/dL (8-23); Calcium 9.4 mg/dL (8.5-10.5); Carbon Dioxide 22 mmol/L (22-29); Chloride 97 mmol/L (98-107); Creatine Phosphokinase 100 U/L (26-192); Globulin 3.1 g/dL (1.3-4.6); Glomerular Filtration Rate 50.2 mL/min (90-130); Glucose 101 mg/dL (65-115); Osmolality Calculated 280 mOsm/kg (285-295); Potassium 3.3 mmol/L (3.5-5.1); Sodium 134 mmol/L (136-145); Total Bilirubin 0.5 mg/dL (0.15-1.2); Total Protein 7.3 g/dL (6.6-8.7)
[2021-11-05 20:39] LABS: Creatinine Clr Calc Pharmacy 50.3942
--- NOTE | 2021-11-05 20:40 | ECG_ITS ---
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 Measurements Intervals [place] Rate: 124 P: NM: QRS: 45 QRSD: 92 T: 51 QT: 308 QTc: 444 Interpretive Statements ATRIAL FLUTTER/TACHYCARDIA WITH RAPID VENTRICULAR RESPONSE POSSIBLE INFERIOR MYOCARDIAL INFARCTION , PROBABLY OLD [30 ms Q WAVE IN II/aVF] ABNORMAL RHYTHM ECG Compared to ECG 11/05/2021 16:43:21 Myocardial infarct finding now present Intraventricular conduction delay no longer present Electronically Signed On 11-07-2021 6:37:56 CDT by Suly Watters M.D. [id number]
[2021-11-05 20:47] LABS: Partial Thromboplastin Time 21.1 SECONDS (23.9-36.7)
[2021-11-05 20:56] LABS: D Dimer 5.67 ug/mIFEU (0-0.59)
[2021-11-05 22:11] LABS: Troponin 5 2HR 12.96 ng/L (0-10)
[2021-11-05 22:12] LABS: Troponin 5 2HR Delta -0.04 ABS# (0-10)
[2021-11-05] MEDS: gabapentin 300 mg Capsule PO (22:54)
[2021-11-05] MEDS: enoxaparin 60 mg/0.6 mL Syringe SUBCUT (22:55)
[2021-11-05] MEDS: nicotine 21 mg Patch 1 PATCH TRANSDERMA (22:57)
[2021-11-05] MEDS: nicotine 2 mg Gum 4 MG BUCCAL (22:59)
[2021-11-06] VITALS (105 sets, daily range): BP systolic 78–120; BP diastolic 56–90; PULSE 83–142; RESP 8–45; TEMP 36.3–36.8; O2SAT 92–100
[2021-11-06 01:12] LABS: Troponin 5 6HR 12.71 ng/L (0-10)
[2021-11-06 01:15] LABS: Troponin 5 6HR Delta -0.29 ng/L (0-12)
[2021-11-06] MEDS: esmolol drip 2,500 MG/250 ML PREMIX 57.15 MG IV ×4 (01:15→18:27)
--- NOTE | 2021-11-06 03:20 | PC.NURSE ---
Suicide Risk Assessment Patient states, I have not had thoughts of harming myself in 8 years . Patient also states, I go to [facility] every 2-3 months now but I used to go weekly . shift mechanic hospitalist notified, see suicide risk assessment for details.
[2021-11-06 04:37] LABS: Basophils % 0.7 %; Eosinophils # 0.1 10^3/uL (0.0-0.8); Eosinophils % 2.3 %; Hematocrit 44.3 % (37.0-47.0); Hemoglobin 14.8 g/dL (11.5-15.3); Lymphocytes # 2.8 10^3/uL (0.8-4.8); Mean Corpuscular HGB Conc 33.4 g/dL (30.0-36.0); Mean Corpuscular Hemoglobin 30.4 pg (28.0-34.0); Monocytes # 0.7 10^3/uL (0.2-0.9); Monocytes % 11.6 %; Neutrophils # 2.35 10^3/uL (1.8-7.7); Neutrophils % 39.1 %; Nucleated Red Blood Cells % 0 %; Platelet Count 231 10^3/cmm (130-400); Red Blood Count 4.87 10^6/uL (4.1-5.3); Red Cell Distribution Width 13.1 % (12.1-15.1)
[2021-11-06 04:59] LABS: Anion Gap 17.6 (5-19); Blood Urea Nitrogen 15 mg/dL (8-23); Calcium 9.2 mg/dL (8.5-10.5); Carbon Dioxide 24 mmol/L (22-29); Chloride 101 mmol/L (98-107); Glucose 101 mg/dL (65-115); Osmolality Calculated 289 mOsm/kg (285-295); Potassium 3.6 mmol/L (3.5-5.1); Sodium 139 mmol/L (136-145)
[2021-11-06] MEDS: nicotine 2 mg Gum 4 MG BUCCAL ×5 (05:25→20:51)
[2021-11-06] MEDS: venlafaxine ER (24HR) 150 mg Capsule PO (05:25)
[2021-11-06] MEDS: oxybutynin 5 mg Tablet PO ×2 (08:07→17:18)
[2021-11-06] MEDS: enoxaparin 60 mg/0.6 mL Syringe SUBCUT ×2 (08:08→20:45)
[2021-11-06] MEDS: ARIPiprazole 10 mg Tablet 5 MG PO (08:08)
[2021-11-06] MEDS: atorvastatin 40 mg Tablet 20 MG PO (08:08)
--- NOTE | 2021-11-06 10:06 | PC.CHAP ---
Pastoral Care Encounter/Spiritual Assessment Type of Contact [] Declined web designer developer visit [] Patient/Family/Request visit [] Outpatient visit [] Follow-up visit [] Physician referral [] Code/Alert [x] Routine visit [] Staff referral [] Actively dying [] Patient sleeping [] Family support [] [] Out of room [] Palliative care [] [] Receiving care in room [] Pre-surgical visit [] Trauma [] Long length of stay [x] ICU visit [] Other: Relational/Emotional Strength [] Patient feels connected with others/family/visitors/staff [] Distress [] Loneliness/isolation [] Abandonment Spirituality of Patient [] Person of Sharon [] Attends Scientologist of their Sharon [] Believes in Prayer [] Reads Bible or Hinduism materials [] There are Spiritual issues to be addressed Office Machines Teacher Interventions [x] Prayer [] Active listening [] Non-anxious presence [] Spiritual/emotional support [] Crisis/trauma care [] Spiritual counseling [] Bereavement support [] Provided bereavement packet [] Provided Bible/devotional materials [] Provided toy/stuffed animal, coloring book to patient or family member [] Provided Communion [] Anointing/[place] [] Salvation [x] Completed spiritual assessment [] Other: Impact on Illness or Injury [] Angry [] Fearful [] Anxious [] Often cries [] Exhaustion [] Unable to work [] Unable to attend buddhism [] Unable to walk/stand [] Unable to read [] Unable to drive [] Unable to eat/drink [] Unable to sleep [] Unable to be with family [] Patient intubated [] Other: Summary Time spent with patient
[2021-11-06] MEDS: digoxin 250 mcg/ml INJ 2 mL IVP (16:03)
--- NOTE | 2021-11-06 17:06 | PM.PN ---
Subjective Subjective: This morning she was feeling better. Denies chest pain or pressure. She was considering getting up, however, discussed with her to maintain bedrest for now given still persistence of tachycardia, soft blood pressure, she stated would do so. She otherwise had breakfast, denies any additional issues this morning. Was little disappointed and she figured she will need to stay longer in the hospital. Vitals/I&O/Wt Last Vital Signs Temp 97.5 F L 11/06/21 07:30 Pulse 132 H 11/06/21 16:15 Resp 15 11/06/21 16:15 BP 110/90 11/06/21 16:15 Pulse Ox 99 11/06/21 16:15 O2 Del Method 11/06/21 08:00 11/06/21 11/06/21 11/06/21 06:59 14:59 22:59 Intake Total 713.703 / 744.185 490.000 / 490.000 Output Total 400 / 400 300 / 300 Balance 313.703 / 344.185 490.000 / 490.000 -300 / 190.000 Weight last 48 hrs Weight 62.823 kg Weight 63.503 kg Physical Exam Const: COMMON NORMALS: patient oriented x3 and alert GENERAL APPEARANCE: cooperative ORIENTATION/CONSCIOUSNESS: Yes awake HENMT: COMMON NORMALS: oropharynx normal Neck/C-Spine: COMMON NORMALS: no JVD Chest: OTHER: Midline scar from childhood surgery. Resp: COMMON NORMALS: normal respiratory effort and clear to auscultation bilaterally AUSCULTATION: clear to auscultation bilaterally Cardio: COMMON NORMALS: no JVD, S1 normal heart sound present, S2 normal heart sound present and No murmurs present (Cardio) RATE: tachycardic RHYTHM: abnormal rhythm irregularly irregular HEART SOUNDS: S1 normal heart sound present and S2 normal heart sound present GI: COMMON NORMALS: Normal to inspection, nondistended, normoactive bowel sounds present, Soft to palpation and non-tender PALPATION: Yes Soft to palpation Extremity: COMMON NORMALS: no joint enlargement and no pedal edema OTHER: No cyanosis Neuro: COMMON NORMALS: patient oriented x3 and moves all extremities SENSORIUM/ORIENTATION: Yes alert Skin: COMMON NORMALS: no rashes or lesions noted GENERAL SKIN EXAM: no rashes or lesions noted Data : 11/06/21 03:38 11/06/21 03:38 A&P Assessment and plan (1) Atrial fibrillation/flutter: Persistent A. fib with RVR. Continues on esmolol drip this morning. Blood pressure soft so metoprolol was not resumed. As blood pressure still soft, did not try calcium channel blockers. Given a dose of digoxin 0.25 mg. So far heart rate has not responded. Hold other medications that may contribute to blood pressure decrease including gabapentin. HCTZ is not resumed. Echocardiogram not yet obtained due to tachycardia. Continues on anticoagulation. D-dimer was abnormal, VQ scan obtained today with low probability of PE. Due to difficulty with try to get heart rate under control, consultation is requested with cardiology as well. New A. fib with RVR. Add TSH. Status: Acute (2) Chest pain: Currently free of chest pain or pressure. Preadmission had episodes of chest discomfort particular with exertion, with tachycardia episodes 1-2 days prior to admit. Has had some exertional limitation over the last 2 weeks or so. Additional assessment by TTE once heart rate is better controlled. Has never had a stress test, would benefit from stress testing once heart rate under control. Pain-free currently. Status: Acute (3) Smoking addiction: Nicotine replacement with nicotine patches, nicotine lozenges. Continue to encourage cessation. Status: Acute Plan HTN And other chronic problems Attestations Medical Necessity Statement*: Continue admission for assessment of management of difficult control A. fib with RVR. Coding Level of Care Code Acute Assurance Manager Insurance for Tayo Thorne Diagnoses Atrial fibrillation/flutter Chest pain R07.9 Smoking addiction F17.200
--- NOTE | 2021-11-06 17:16 | PM.CONSULT ---
Providers/Reason For Consult Consulting Physician/Specialty*: Dr. Sales, Cardiology Reason for Consult*: Difficult to control atrial flutter Attending Physician: Phill Wise Primary Care Provider: Genie Vences DO History of Present Illness History of Present Illness Isabelle Lenz is a 66 year old female with past history of unspecified congenital heart disease, open heart surgery at the age of 9, HTN, smoking addiction. She has been having exertional SOB for last 2 weeks and complains of lightheadedness for last 2 days mostly with exertion.? Denies any past history of atrial fibrillation/flutter. She was noted in ER to be A. flutter with RVR noted with heart rates 130s up to 140s for which she was started on esmolol drip. She denies history of IL or coronary stenting.? Never had a stress test. She was given digoxin. At the time, she is not having CP, palpitations, SOB or dizziness. BP has been running soft 81/59-110/90 mm Hg. Review of Systems General: Reports: 10 or more systems reviewed and unremarkable except in HPI and below Const: Denies: fever(s), chills, body aches or malaise Eyes: Denies: change in vision, eye discomfort or eye redness ENMT: Denies: throat pain, oral sores or ear or mastoid pain Card: Reports: lightheadedness and dyspnea on exertion; Denies: chest pain, palpitations, irregular heart rhythm, edema, pre-syncope or acrocyanosis Resp: Denies: dyspnea, productive cough, change in phlegm color or hemoptysis GI: Denies: abdominal pain, nausea, vomiting, diarrhea, constipation, hematochezia or melena : Denies: flank pain, urinary frequency or hematuria Musc: Denies: back pain, joint swelling or joint redness Skin/Breast: Denies: rash or new lesions Neuro: Denies: headache(s), numbness in extremities, weakness in extremities, dizziness, confusion or seizure-like activity Endo: Denies: polyuria or polydipsia Sander/Lymph: Denies: easy bleeding or tender lymph nodes All/Imm: Denies: urticaria or tongue swelling Medications/Allergies Home Medications Medication Instructions Recorded Confirmed Last Taken Type ibuprofen 200 mg capsule 800 mg PO Q6H PRN pain 05/06/19 11/05/21 Unknown History [id number] 1 tab PO DAILY 05/08/19 11/05/21 11/05/21 History 18 mg-10 mg-45 mg-5 mg-250 mg tablet (B Complex w-Vit C) turmeric 400 mg capsule 400 mg PO DAILY 11/03/19 11/05/21 11/05/21 History alprazolam 0.5 mg tablet 0.5 mg PO BID PRN anxiety #60 tabs 06/21/21 11/05/21 Unknown Rx oxybutynin chloride 5 mg tablet 5 mg PO BID 90 days #180 tabs 08/08/21 11/05/21 11/05/21 Rx atorvastatin 20 mg tablet 20 mg PO DAILY #30 tabs 08/09/21 11/05/21 11/05/21 Rx trazodone 150 mg tablet 150 mg PO DIRECTED PRN sleep 08/09/21 11/05/21 Unknown Rx #180 tabs venlafaxine 150 mg 150 mg PO QAM #90 caps 11/02/21 11/05/21 11/05/21 Rx capsule,extended release 24 hr (Effexor XR) venlafaxine 75 mg capsule,extended 75 mg PO QAM #90 caps 11/02/21 11/05/21 11/05/21 Rx release 24 hr (Effexor XR) albuterol sulfate 90 mcg/actuation 2 puff inhalation Q6H PRN 11/05/21 11/05/21 Unknown History aerosol inhaler Shortness Of Breath aripiprazole 5 mg tablet (Abilify) 5 mg PO DAILY 11/05/21 11/05/21 11/05/21 History calcium carbonate 600 mg-vitamin 1 tab PO DAILY 11/05/21 11/05/21 11/05/21 History D3 10 mcg (400 unit) tablet elderberry fruit 460 mg-elderberry 1 cap PO DAILY 11/05/21 11/05/21 11/05/21 History flower 115 mg capsule gabapentin 300 mg capsule 300 mg PO BEDTIME 11/05/21 11/05/21 11/04/21 History hydrochlorothiazide 25 mg tablet 25 mg PO DAILY 11/05/21 11/05/21 11/05/21 History melatonin 3 mg capsule 3 mg PO BEDTIME sleep 11/05/21 11/05/21 11/04/21 History metoprolol tartrate 25 mg tablet 25 mg PO DAILY 11/05/21 11/05/21 11/05/21 History Allergies Allergy/AdvReac Type Severity Reaction Status Date / Time No Known Allergies Allergy Verified 11/05/21 14:28 Current Medications Generic Name Dose Route Start Last Admin Trade Name Renatoq PRN Reason Stop Dose Admin Aripiprazole 5 mg 11/06/21 09:00 11/06/21 08:08 Aripiprazole 10 Mg Tablet PO 5 mg DAILY LIBERTY Administration Atorvastatin Calcium 20 mg 11/06/21 09:00 11/06/21 08:08 Atorvastatin 40 Mg Tablet PO 20 mg DAILY LIBERTY Administration Enoxaparin Sodium 60 mg 11/05/21 21:01 11/06/21 08:08 Enoxaparin 60 Mg/0.6 Ml Syringe SUBCUT 60 mg Q12H LIBERTY Administration Gabapentin 300 mg 11/05/21 22:02 11/05/21 22:54 Gabapentin 300 Mg Capsule PO 300 mg BEDTIME LIBERTY Administration Esmolol HCl 2,500 mg in 250 mls @ 0 mls/hr 11/05/21 17:00 11/06/21 14:11 Brevibloc Drip IV 150 mcg/kg/min .Q0M LIBERTY 57.15 mls/hr Administration Protocol Per Protocol Nicotine 1 patch 11/05/21 22:02 11/05/21 22:57 Nicotine 21 Mg Patch TRANSDERMA 1 patch Q24H LIBERTY Administration Nicotine Polacrilex 4 mg 11/05/21 22:02 11/06/21 16:03 Nicotine 2 Mg Gum BUCCAL 4 mg Q2H LIBERTY Administration Oxybutynin Chloride 5 mg 11/06/21 09:00 11/06/21 08:07 Oxybutynin 5 Mg Tablet PO 5 mg BID LIBERTY Administration Venlafaxine HCl 150 mg 11/06/21 06:00 11/06/21 05:25 Venlafaxine Er (24hr) 150 Mg Capsule PO 150 mg QAM LIBERTY Administration PFSH Acute PFSH: Medical History Benign essential HTN Bereavement Chronic low back pain with sciatica Chronic post-traumatic stress disorder Enrolled in chronic care management Generalized anxiety disorder Major depressive disorder, recurrent severe without psychotic features Psychiatric care Smoking addiction Surgical History H/O total hysterectomy History of back surgery History of ear surgery History of open heart surgery No pertinent past surgical history Family History Father Heart disease Grandmother Cancer Brother Hepatitis B Other CAD (coronary artery disease) Diabetes Hyperlipidemia Hypertension Psychiatric illness Social History Smoking and tobacco status: current every day smoker cigarettes Packs smoked per day: 1 Years cigarettes smoked: 1 Quit status (tobacco): has tried quititng Number of times tried to quit tobacco: 1 Second hand smoke exposure: Yes Smoking risk assessment/counseling performed?: No Alcohol intake: former Year of sobriety/quit date alcohol: 2020 Desire information about alcohol rehabilitation?: No Adopted: No Caregiver/support person: No Lives independently: Yes Household members: family Housing: House Marital status: / Number of children: 3 Number of grandchildren: 5 Highest education level completed: Associate Degree: Occupational, Technical, Vocational Program 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, 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 [employer] reserves) status: Medically Discharged/Retired branch: [employer] Assignments: Inside [facility] ([facility]) Known or Potential Exposure: None Current occupational status: disabled Pets and animals: Yes Pets & animals: cat(s), dog(s) and guinea pig(s) History of recent travel: No Leisure activites: art and volunteer work Sexually active: No Current gender identity: Female Sharon/Episcopal: Anabaptist Special sharon needs: No Agree to transfusion: Yes Financial difficulty paying for basics: Not Very Hard Female Reproductive History: Para: 3 Spontaneous abortions: Yes Vitals/I&O/Wt Last Vital Signs Temp 97.5 F L 11/06/21 07:30 Pulse 132 H 11/06/21 16:15 Resp 15 11/06/21 16:15 BP 110/90 11/06/21 16:15 Pulse Ox 99 11/06/21 16:15 O2 Del Method 11/06/21 08:00 11/06/21 11/06/21 11/06/21 06:59 14:59 22:59 Intake Total 713.703 / 744.185 490.000 / 490.000 Output Total 400 / 400 300 / 300 Balance 313.703 / 344.185 490.000 / 490.000 -300 / 190.000 Weight last 48 hrs Weight 138 lb 8 oz Weight 140 lb Physical Exam Narrative: GENERAL: Averagely built and averagely nourished in no acute distress HEENT: Extraocular movement intact. No pallor or icterus. NECK: central trachea, No JVD, No carotid bruit. CARDIOVASCULAR SYSTEM: S1-S2 regular. tachycardia+ . No murmur rubs or gallops. RESPIRATORY SYSTEM: Chest clear to auscultation. No wheezes rhonchi or rubs heard. No use of accessory muscles. Mid line sternotomy scar+ ABDOMEN: Soft, nontender and nondistended. Normal bowel sounds present. EXTREMITIES: No cyanosis or clubbing or edema. EMPLOYMENT COORDINATOR: Patient is alert oriented ?3. No focal neurological deficits. SKIN: Normal turgor and temperature. PSYCH: Normal insight and judgment. Data : 11/06/21 03:38 11/06/21 03:38 A&P Assessment and plan (1) Atrial flutter with rapid ventricular response: [id number]/9; 1 for female sex and 1 for HTN -at least > 48 hr in duration -already on lovenox -start on amiodarone gtt with plan for CRISTIAN/CV -will benefit from atrial flutter ablation as outpatient Risks and benefits were discussed with the patients. Possible complications including risk of esophageal perforation, stroke discussed with patient. Plan is to proceed for the procedure at the earliest. Status: Acute (2) Dyslipidemia: Status: Acute (3) Chronic low back pain with sciatica: Status: Chronic Qualifiers: Back pain laterality: bilateral Sciatica laterality: bilateral sciatica Qualified Code(s): M54.42 - Lumbago with sciatica, left side; M54.41 - Lumbago with sciatica, right side; G89.29 - Other chronic pain Plan H/O HTN: BP soft here. Thank you for allowing me to participate in patient's care. Please feel free to call with questions or concerns. Consult Attestations Medical Necessity Statement: needs hospital stay for management of atrial flutter with RVR Coding Level of Care Code Acute New Accounts Clerk for [facility] Fwd Diagnoses Atrial flutter with rapid ventricular response I48.92 Dyslipidemia E78.5 Chronic low back pain with sciatica M54.42; M54.41; G89.29 Back pain laterality: bilateral Sciatica laterality: bilateral sciatica
[2021-11-06 17:51] LABS: Thyroid Stimulating Hormone 4.14 uIU/mL (0.27-4.20)
[2021-11-06] MEDS: acetaminophen 325 mg Tablet 650 MG PO (19:52)
--- NOTE | 2021-11-06 21:01 | NM_ITS ---
WS: [id number] NUCLEAR MEDICINE LUNG VENTILATION AND PERFUSION CLINICAL INFORMATION: assess for PE TECHNIQUE: Ventilation/perfusion lung scan with 33.0 mCi technetium 99m DTPA. 5.5 mCi technetium 99m MAA COMPARISON: Radiograph November 05, 2021 FINDINGS: Chronic emphysematous changes on the prior radiograph. No acute pulmonary infiltrates. Sternotomy. Symmetric bilateral somewhat heterogeneous radiotracer uptake on the perfusion images. Central radiot racer deposition on the ventilatory images. A few matched but no large mismatched ventilation/perfusi on perfusion defects. Low probability for pulmonary embolus. IMPRESSION: 1. Low probability for pulmonary embolus.
--- NOTE | 2021-11-06 22:02 | USCV_ITS ---
Isabelle Lenz Age: 66 Gender: F : 1955 Exam Date: 11/07/2021 03:49 Ordering Phys: Bridgette Sales MD Technologist: LAINA Exam Location: [facility] [place] Indication: Atrial flutter BP: 102 / 70 HR: 81 Rhythm: Atrial flutter Technical Quality: Good MEASUREMENTS (Male / Female) Normal Values 2D ECHO LV Diastolic Diameter PLAX 3.0 cm 4.2 - 5.9 / 3.9 - 5.3 cm LV Systolic Diameter PLAX 1.9 cm IVS Diastolic Thickness 1.3 cm 0.6 - 1.0 / 0.6 - 0.9 cm IVS Systolic Thickness 1.9 cm LVPW Diastolic Thickness 1.4 cm 0.6 - 1.0 / 0.6 - 0.9 cm LVPW Systolic Thickness 1.3 cm LVOT Diameter 1.9 cm LV Ejection Fraction 2D Teich 66.6 % LV Ejection Fraction MOD 2C 67.1 % LV Ejection Fraction 2C AL 67.3 % LA Diameter 3.3 cm LA Width 2.4 cm LA Height 6.5 cm RA Width 3.8 cm RA Height 4.8 cm Aorta at Sinotubular Diameter 3.2 cm IVC Diameter 1.5 cm M-MODE Aortic Annulus Diameter 3.3 cm LA Ao Ratio MM 1.2 MV E Point Septal Separation 0.3 cm DOPPLER AV Peak Velocity 90.0 cm/s LVOT Peak Velocity 86.0 cm/s AV Area Cont Eq vti 2.0 cm squared AV Area Cont Eq pk 2.6 cm squared MV Peak Velocity 94.0 cm/s MV Area PHT 4.5 cm squared Mitral E to A Ratio 1.3 MV E' Velocity 52.5 cm/s Mitral E to MV E' Ratio 9.1 Mitral E to LV E' Lateral Ratio 9.4 Mitral E to LV E' Septal Ratio 8.9 TR Peak Velocity 211.2 cm/s TR Peak Gradient 17.9 mmHg TV Peak E Velocity 48.0 cm/s Right Atrial Pressure 5.0 mmHg Pulmonary Artery Systolic Pressu 22.9 mmHg PV Peak Velocity 84.0 cm/s RV Acceleration Time 0.1 s RV Ejection Time 0.3 s RV AcT/ET 0.3 FINDINGS Left Ventricle Normal left ventricular cavity size. Normal left ventricular systolic function. Left ventricular ejection fraction is estimated at 60 %. No regional wall motion abnormalities. Rhythm precludes evaluation of diastolic function. Right Ventricle Normal right ventricular size and systolic function. Right ventricular systolic pressure 22.9 mmHg. Right Atrium Normal right atrial size. Right atrial pressure estimated at 3 mm Hg. Thickened interatrial septum. Left Atrium Mildly increased left atrial size. Mitral Valve Structurally normal mitral valve. No mitral valve stenosis. Trace mitral valve regurgitation. Aortic Valve Trileaflet aortic valve. No aortic valve stenosis. No aortic valve regurgitation. Tricuspid Valve Structurally normal tricuspid valve. No tricuspid valve stenosis. Trace tricuspid valve regurgitation. Pulmonic Valve Structurally normal pulmonic valve. No pulmonary valve stenosis. Trace pulmonary valve regurgitation. Pericardium No pericardial effusion. Aorta Normal size aortic root and proximal ascending aorta. IVC Normal IVC dimension with >50% respiratory change of the inferior vena cava. CONCLUSIONS 1. Normal left ventricular cavity size. Normal left ventricular systolic function. Left ventricular ejection fraction is estimated at 60 %. No regional wall motion abnormalities. 2. Normal right ventricular size and systolic function. 3. Mildly increased left atrial size. 4. Pulmonary pressure estimated at 23 mmHg. 5. No prior similar studies to compare. Bridgette Slaes MD (Electronically Signed) Final Date: 07 November 2021 16:53 S
[2021-11-06] MEDS: nicotine 21 mg Patch 1 PATCH TRANSDERMA (22:06)
[2021-11-06] MEDS: esmolol drip 2,500 MG/250 ML PREMIX 38.1 MG IV (23:25)
[2021-11-07] VITALS (48 sets, daily range): BP systolic 76–142; BP diastolic 43–104; PULSE 68–146; RESP 12–27; TEMP 36.5–36.8; O2SAT 89–100; BMI 23.1
[2021-11-07] MEDS: nicotine 2 mg Gum 4 MG BUCCAL ×4 (04:46→17:36)
[2021-11-07 05:53] LABS: Basophils % 0.9 %; Eosinophils # 0.1 10^3/uL (0.0-0.8); Eosinophils % 3.1 %; Hemoglobin 14.6 g/dL (11.5-15.3); Lymphocytes % 44.8 %; Mean Corpuscular Hemoglobin 30.5 pg (28.0-34.0); Mean Corpuscular Volume 89.8 fl (81-99); Monocytes # 0.6 10^3/uL (0.2-0.9); Monocytes % 13.4 %; Neutrophils # 1.69 10^3/uL (1.8-7.7); Neutrophils % 37.6 %; Nucleated Red Blood Cells % 0 %; Platelet Count 212 10^3/cmm (130-400); Red Blood Count 4.79 10^6/uL (4.1-5.3); White Blood Count 4.5 10^3/uL (4.0-10.0)
[2021-11-07] MEDS: venlafaxine ER (24HR) 150 mg Capsule PO (06:37)
[2021-11-07 06:40] LABS: Alanine Aminotransferase 18 U/L (0-33); Albumin Level 3.7 g/dL (3.5-5.2); Alkaline Phosphatase 109 IU/L (35-105); Anion Gap 10.6 (5-19); Aspartate Amino Transferase 23 U/L (0-32); Blood Urea Nitrogen 14 mg/dL (8-23); Carbon Dioxide 29 mmol/L (22-29); Chloride 101 mmol/L (98-107); Creatinine Clr Calc Pharmacy 54.4696; Globulin 2.9 g/dL (1.3-4.6); Glomerular Filtration Rate 55.8 mL/min (90-130); Glucose 96 mg/dL (65-115); Osmolality Calculated 284 mOsm/kg (285-295); Potassium 3.6 mmol/L (3.5-5.1); Sodium 137 mmol/L (136-145); Total Bilirubin 0.4 mg/dL (0.15-1.2); Total Protein 6.6 g/dL (6.6-8.7)
[2021-11-07] MEDS: oxybutynin 5 mg Tablet PO ×2 (08:05→17:35)
[2021-11-07] MEDS: atorvastatin 40 mg Tablet 20 MG PO (08:05)
[2021-11-07] MEDS: ARIPiprazole 10 mg Tablet 5 MG PO (08:05)
[2021-11-07] MEDS: enoxaparin 60 mg/0.6 mL Syringe SUBCUT ×2 (08:05→21:03)
[2021-11-07] MEDS: esmolol drip 2,500 MG/250 ML PREMIX 19.05 MG IV (10:12)
--- NOTE | 2021-11-07 10:17 | PC.CHAP ---
Pastoral Care Encounter/Spiritual Assessment Type of Contact [] Declined meter installer visit [] Patient/Family/Request visit [] Outpatient visit [] Follow-up visit [] Physician referral [] Code/Alert [x] Routine visit [] Staff referral [] Actively dying [] Patient sleeping [] Family support [] [] Out of room [] Palliative care [] [] Receiving care in room [] Pre-surgical visit [] Trauma [] Long length of stay [x] ICU visit [] Other: Relational/Emotional Strength [] Patient feels connected with others/family/visitors/staff [] Distress [] Loneliness/isolation [] Abandonment Spirituality of Patient [] Person of Sharon [] Attends Anabaptist of their Sharon [] Believes in Prayer [] Reads Bible or Mu-Ism materials [] There are Spiritual issues to be addressed Keno Attendant Interventions [x] Prayer [] Active listening [] Non-anxious presence [] Spiritual/emotional support [] Crisis/trauma care [] Spiritual counseling [] Bereavement support [] Provided bereavement packet [] Provided Bible/devotional materials [] Provided toy/stuffed animal, coloring book to patient or family member [] Provided Communion [] Anointing/[place] [] Salvation [x] Completed spiritual assessment [] Other: Impact on Illness or Injury [] Angry [] Fearful [] Anxious [] Often cries [] Exhaustion [] Unable to work [] Unable to attend quaker [] Unable to walk/stand [] Unable to read [] Unable to drive [] Unable to eat/drink [] Unable to sleep [] Unable to be with family [] Patient intubated [] Other: Summary Time spent with patient
--- NOTE | 2021-11-07 11:57 | PM.PN ---
Subjective Subjective: I spoke to patient's mother and it seems like she had ASD/VSD repair at age 12. She has been in bed today. dull chest pain, no dizziness/SOB while at rest Medications: Reviewed: Yes Vitals/I&O/Wt Last Vital Signs Temp 97.8 F 11/07/21 04:00 Pulse 124 H 11/07/21 08:00 Resp 18 11/07/21 08:00 BP 96/60 11/07/21 08:00 Pulse Ox 99 11/07/21 08:00 O2 Del Method 11/07/21 04:00 11/06/21 11/07/21 11/07/21 22:59 06:59 14:59 Intake Total 705.772 / 1195.772 310.119 / 1505.891 168.275 / 168.275 Output Total 300 / 300 725 / 1025 Balance 405.772 / 895.772 -414.881 / 480.891 168.275 / 168.275 Weight last 48 hrs Weight 143 lb Weight 138 lb 8 oz Weight 140 lb Physical Exam Narrative: GENERAL: Averagely built and averagely nourished in no acute distress HEENT: Extraocular movement intact. No pallor or icterus. NECK: central trachea, No JVD, No carotid bruit. CARDIOVASCULAR SYSTEM: S1-S2 regular. tachycardia+ . No murmur rubs or gallops. RESPIRATORY SYSTEM: Chest clear to auscultation. No wheezes rhonchi or rubs heard. No use of accessory muscles. Mid line sternotomy scar+ ABDOMEN: Soft, nontender and nondistended. Normal bowel sounds present. EXTREMITIES: No cyanosis or clubbing or edema. NUCLEAR POWERPLANT SUPERVISOR: Patient is alert oriented ?3. No focal neurological deficits. SKIN: Normal turgor and temperature. PSYCH: Normal insight and judgment. Data : 11/07/21 05:40 11/07/21 05:40 A&P Assessment and plan (1) Atrial flutter with rapid ventricular response: [id number]=2/9; 1 for female sex and 1 for HTN -at least > 48 hr in duration -already on lovenox, transition to Eliquis 5 mg BID at least for 1 month -start on amiodarone gtt with plan for CRISTIAN/CV tomorrow, transition to PO amiodarone -will benefit from atrial flutter ablation as outpatient Risks and benefits were discussed with the patients. Possible complications including risk of esophageal perforation, stroke discussed with patient. Plan is to proceed for the procedure at the earliest. Status: Acute (2) Dyslipidemia: Status: Acute (3) Chronic low back pain with sciatica: Status: Chronic Qualifiers: Back pain laterality: bilateral Sciatica laterality: bilateral sciatica Qualified Code(s): M54.42 - Lumbago with sciatica, left side; M54.41 - Lumbago with sciatica, right side; G89.29 - Other chronic pain Plan H/O HTN: BP soft here. Family h/o CAD: father with heart issues in his 60's Thank you for allowing me to participate in patient's care. Please feel free to call with questions or concerns. Attestations Medical Necessity Statement*: needs hospital stay for atrial flutter with RVR Time Spent in Patient Care: 16 - 35 minutes Coding Level of Care Code Acute Technical Information Specialist for [facility] Fwd Diagnoses Atrial flutter with rapid ventricular response I48.92 Dyslipidemia E78.5 Chronic low back pain with sciatica M54.42; M54.41; G89.29 Back pain laterality: bilateral Sciatica laterality: bilateral sciatica
--- NOTE | 2021-11-07 12:23 | PM.PN ---
Subjective Subjective: She is doing a bit better today. Heart rate is slightly better but still tachycardic. Denies chest pain or pressure. Vitals/I&O/Wt Last Vital Signs Temp 97.8 F 11/07/21 04:00 Pulse 124 H 11/07/21 08:00 Resp 18 11/07/21 08:00 BP 96/60 11/07/21 08:00 Pulse Ox 99 11/07/21 08:00 O2 Del Method 11/07/21 04:00 11/06/21 11/07/21 11/07/21 22:59 06:59 14:59 Intake Total 705.772 / 1195.772 310.119 / 1505.891 361.987 / 361.987 Output Total 300 / 300 725 / 1025 Balance 405.772 / 895.772 -414.881 / 480.891 361.987 / 361.987 Weight last 48 hrs Weight 64.864 kg Weight 62.823 kg Weight 63.503 kg Physical Exam Narrative: Daughter at bedside Const: COMMON NORMALS: patient oriented x3 and alert GENERAL APPEARANCE: cooperative ORIENTATION/CONSCIOUSNESS: Yes awake HENMT: COMMON NORMALS: oropharynx normal Neck/C-Spine: COMMON NORMALS: no JVD Chest: OTHER: Midline scar from childhood surgery. Resp: COMMON NORMALS: normal respiratory effort and clear to auscultation bilaterally AUSCULTATION: clear to auscultation bilaterally Cardio: COMMON NORMALS: no JVD, regular rhythm, S1 normal heart sound present, S2 normal heart sound present and No murmurs present (Cardio) RATE: tachycardic RHYTHM: regular rhythm and abnormal rhythm irregularly irregular HEART SOUNDS: S1 normal heart sound present and S2 normal heart sound present GI: COMMON NORMALS: Normal to inspection, nondistended, normoactive bowel sounds present, Soft to palpation and non-tender PALPATION: Yes Soft to palpation Extremity: COMMON NORMALS: no joint enlargement and no pedal edema OTHER: No cyanosis Neuro: COMMON NORMALS: patient oriented x3 and moves all extremities SENSORIUM/ORIENTATION: Yes alert Skin: COMMON NORMALS: no rashes or lesions noted GENERAL SKIN EXAM: no rashes or lesions noted Data : 11/07/21 05:40 11/07/21 05:40 A&P Assessment and plan (1) Atrial fibrillation/flutter: Persistent A. fib with RVR. Appreciate cardiology assessment and recommendations. Started on amiodarone drip in addition to esmolol. Plans for DC cardioversion today. Echocardiogram pending. Continues on anticoagulation. D-dimer was abnormal, VQ scan obtained today with low probability of PE. Due to difficulty with try to get heart rate under control, consultation is requested with cardiology as well. New A. fib with RVR. Normal TSH. Status: Acute (2) Chest pain: Has not recurred. Currently free of chest pain or pressure. Preadmission had episodes of chest discomfort particular with exertion, with tachycardia episodes 1-2 days prior to admit. Has had some exertional limitation over the last 2 weeks or so. Additional assessment by TTE once heart rate is better controlled. Has never had a stress test, would benefit from stress testing once heart rate under control. Pain-free currently. Status: Acute (3) Smoking addiction: Nicotine replacement with nicotine patches, nicotine lozenges. Continue to encourage cessation. Status: Acute Plan HTN And other chronic problems Attestations Medical Necessity Statement*: Continue admission for assessment management of new difficult control A. fib with RVR. Coding Level of Care Code Acute Home Health Provider for [facility] Fwd Diagnoses Atrial fibrillation/flutter Chest pain R07.9 Smoking addiction F17.200
[2021-11-07] MEDS: amiodarone 200 mg Tablet 400 MG PO ×2 (14:43→21:03)
--- NOTE | 2021-11-07 17:00 | P.ANESASSM_ITS ---
Pre-Anesthetic Assessment Height/Weight: Height 1.68 m Weight 64.864 kg Temp Pulse Resp BP Pulse Ox O2 Del Method 97.8 F 83 12 104/77 98 11/07/21 04:00 11/07/21 16:00 11/07/21 16:00 11/07/21 15:00 11/07/21 08:00 11/07/21 08:00 Preop Diagnosis: Afib w/ RVR CRISTIAN possible cardioversion Familial anesthetic complications: None Was Beta Kian taken within 24 hours: Yes Was Clonidine taken within 24 hours: N/A Social Tobacco and No tobacco Exam alert and oriented x 3 Wheezing b/l Irregular rate and rhythm Airway Submandibular: within normal limits Cervical ROM: within normal limits Mallampati: Class II Dentition: false History/ROS No significant complaints Pulmonary Chronic Obstructive Pulmonary Disease Has had polysomnogram twice, both negative for ERNA per patient CV/HEM Arrythmia (Aflutter with RVR), Coronary Artery Disease, Hypertension and Myocardial Infarction None reported Hepatic None reported GI None reported Metabolic None reported Musc/skel Lower Back Pain and Osteoarthritis/DJD Neuropsych Anxiety and Depression chronic PTSD Anesthetic Plan ASA status: 3 Anesthesia: Anesthesia Evaluation, General and MAC Other: I discussed with the patient risks, goals, and benefits of MAC and general anesthesia. We discussed spectrum of MAC anesthesia including conversion to general as well as possibility of recall of intraoperative stimuli including discomfort/pain. Patient agrees to proceed with MAC. Risk of > 500 ml blood loss (7ml/kg in children): No Medications/Allergies Home Medications Medication Instructions Recorded Confirmed Last Taken Type ibuprofen 200 mg capsule 800 mg PO Q6H PRN pain 05/06/19 11/05/21 Unknown History [id number] 1 tab PO DAILY 05/08/19 11/05/21 11/05/21 History 18 mg-10 mg-45 mg-5 mg-250 mg tablet (B Complex w-Vit C) turmeric 400 mg capsule 400 mg PO DAILY 11/03/19 11/05/21 11/05/21 History alprazolam 0.5 mg tablet 0.5 mg PO BID PRN anxiety #60 tabs 06/21/21 11/05/21 Unknown Rx oxybutynin chloride 5 mg tablet 5 mg PO BID 90 days #180 tabs 08/08/21 11/05/21 11/05/21 Rx atorvastatin 20 mg tablet 20 mg PO DAILY #30 tabs 08/09/21 11/05/21 11/05/21 Rx trazodone 150 mg tablet 150 mg PO DIRECTED PRN sleep 08/09/21 11/05/21 Unknown Rx #180 tabs venlafaxine 150 mg 150 mg PO QAM #90 caps 11/02/21 11/05/21 11/05/21 Rx capsule,extended release 24 hr (Effexor XR) venlafaxine 75 mg capsule,extended 75 mg PO QAM #90 caps 11/02/21 11/05/21 11/05/21 Rx release 24 hr (Effexor XR) albuterol sulfate 90 mcg/actuation 2 puff inhalation Q6H PRN 11/05/21 11/05/21 Unknown History aerosol inhaler Shortness Of Breath aripiprazole 5 mg tablet (Abilify) 5 mg PO DAILY 11/05/21 11/05/21 11/05/21 History calcium carbonate 600 mg-vitamin 1 tab PO DAILY 11/05/21 11/05/21 11/05/21 History D3 10 mcg (400 unit) tablet elderberry fruit 460 mg-elderberry 1 cap PO DAILY 11/05/21 11/05/21 11/05/21 History flower 115 mg capsule gabapentin 300 mg capsule 300 mg PO BEDTIME 11/05/21 11/05/21 11/04/21 History hydrochlorothiazide 25 mg tablet 25 mg PO DAILY 11/05/21 11/05/21 11/05/21 History melatonin 3 mg capsule 3 mg PO BEDTIME sleep 11/05/21 11/05/21 11/04/21 History metoprolol tartrate 25 mg tablet 25 mg PO DAILY 11/05/21 11/05/21 11/05/21 History Allergies Allergy/AdvReac Type Severity Reaction Status Date / Time No Known Allergies Allergy Verified 11/05/21 14:28 Current Medications Generic Name Dose Route Start Last Admin Trade Name Freq PRN Reason Stop Dose Admin Acetaminophen 650 mg 11/05/21 22:02 11/06/21 19:52 Acetaminophen 325 Mg Tablet PO 650 mg Q6H PRN Administration Mild/Mod Pain Or Temp >/= 101 Amiodarone HCl 400 mg 11/07/21 14:05 11/07/21 14:43 Amiodarone 200 Mg Tablet PO 400 mg 0900,2100 LIBERTY Administration Aripiprazole 5 mg 11/06/21 09:00 11/07/21 08:05 Aripiprazole 10 Mg Tablet PO 5 mg DAILY LIBERTY Administration Atorvastatin Calcium 20 mg 11/06/21 09:00 11/07/21 08:05 Atorvastatin 40 Mg Tablet PO 20 mg DAILY LIBERTY Administration Enoxaparin Sodium 60 mg 11/05/21 21:01 11/07/21 08:05 Enoxaparin 60 Mg/0.6 Ml Syringe SUBCUT 60 mg Q12H LIBERTY Administration Gabapentin 300 mg 11/05/21 22:02 11/05/21 22:54 Gabapentin 300 Mg Capsule PO 300 mg BEDTIME LIBERTY Administration Esmolol HCl 2,500 mg in 250 mls @ 0 mls/hr 11/05/21 17:00 11/07/21 10:12 Brevibloc Drip IV 50 mcg/kg/min .Q0M LIBERTY 19.05 mls/hr Administration Protocol Per Protocol Amiodarone HCl 900 mg/ 518 mls @ 0 mls/hr 11/06/21 18:00 11/07/21 12:02 Dextrose/ IV Miscellaneous IV 0.5 mg/min Supplies .Q0M LIBERTY 17.27 mls/hr Administration Protocol Per Protocol Nicotine 1 patch 11/05/21 22:02 11/06/21 22:06 Nicotine 21 Mg Patch TRANSDERMA 1 patch Q24H LIBERTY Administration Nicotine Polacrilex 4 mg 11/05/21 22:02 11/07/21 14:45 Nicotine 2 Mg Gum BUCCAL Not Given Q2H LIBERTY Oxybutynin Chloride 5 mg 11/06/21 09:00 11/07/21 08:05 Oxybutynin 5 Mg Tablet PO 5 mg BID LIBERTY Administration Venlafaxine HCl 150 mg 11/06/21 06:00 11/07/21 06:37 Venlafaxine Er (24hr) 150 Mg Capsule PO 150 mg QAM LIBERTY Administration PFSH Anesthesia Medical History Benign essential HTN Bereavement Chronic low back pain with sciatica Chronic post-traumatic stress disorder Enrolled in chronic care management Generalized anxiety disorder Major depressive disorder, recurrent severe without psychotic features Psychiatric care Smoking addiction Surgical History H/O total hysterectomy History of back surgery History of ear surgery History of open heart surgery No pertinent past surgical history Family History Father Heart disease Grandmother Cancer Brother Hepatitis B Other CAD (coronary artery disease) Diabetes Hyperlipidemia Hypertension Psychiatric illness Social History Smoking and tobacco status: current every day smoker cigarettes Packs smoked per day: 1 Years cigarettes smoked: 1 Quit status (tobacco): has tried quititng Number of times tried to quit tobacco: 1 Second hand smoke exposure: Yes Smoking risk assessment/counseling performed?: No Alcohol intake: former Year of sobriety/quit date alcohol: 2020 Desire information about alcohol rehabilitation?: No Adopted: No Caregiver/support person: No Lives independently: Yes Household members: family Housing: House Marital status: / Number of children: 3 Number of grandchildren: 5 Highest education level completed: Associate Degree: Occupational, Technical, Vocational Program 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 ([facility]) Known or Potential Exposure: None Current occupational status: disabled Pets and animals: Yes Pets & animals: cat(s), dog(s) and guinea pig(s) History of recent travel: No Leisure activites: art and volunteer work Sexually active: No Current gender identity: Female Sharon/Restorationist: Denominational Special sharon needs: No Agree to transfusion: Yes Financial difficulty paying for basics: Not Very Hard Female Reproductive History Para: 3 Spontaneous abortions: Yes Data Anesthesia : 11/07/21 05:40 11/07/21 05:40 Short CBC 11/05/21 11/05/21 11/06/21 Range/Units 18:10 19:48 03:38 WBC Cancelled 6.5 6.0 Hgb Cancelled 15.0 14.8 Hct Cancelled 43.9 44.3 MCV Cancelled 89.2 91.0 Plt Count Cancelled 237 231 Neut % (Auto) Cancelled 47.3 39.1 Neut # (Auto) Cancelled 3.09 2.35 11/07/21 Range/Units 05:40 WBC 4.5 Hgb 14.6 Hct 43.0 MCV 89.8 Plt Count 212 Neut % (Auto) 37.6 Neut # (Auto) 1.69 L BMP 11/05/21 11/05/21 11/06/21 18:10 19:48 03:38 Sodium Cancelled 134 L 139 Potassium Cancelled 3.3 L 3.6 Chloride Cancelled 97 L 101 Carbon Dioxide Cancelled 22 24 BUN Cancelled 17 15 Creatinine Cancelled 1.1 H 1.1 H Glucose Cancelled 101 101 Calcium Cancelled 9.4 9.2 11/07/21 05:40 Sodium 137 Potassium 3.6 Chloride 101 Carbon Dioxide 29 BUN 14 Creatinine 1.0 H Glucose 96 Calcium 9.0 Cardiac Enzymes 11/05/21 11/05/21 11/05/21 Range/Units 00:40 18:10 18:10 Creatine Kinase Cancelled Troponin T Baseline Cancelled Troponin T 120 Minute (0-10) ng/L Delta Troponin T (0-10) ABS# Troponin T Hi Sens 6Hr 12.71 H (0-10) ng/L Troponin T Hi Sens 6Hr Delta -0.29 L (0-12) ng/L 11/05/21 11/05/21 11/05/21 Range/Units 19:48 19:48 21:41 Creatine Kinase 100 Troponin T Baseline 13 H Troponin T 120 Minute 12.96 H (0-10) ng/L Delta Troponin T -0.04 L (0-10) ABS# Troponin T Hi Sens 6Hr (0-10) ng/L Troponin T Hi Sens 6Hr Delta (0-12) ng/L Liver Function 11/05/21 11/05/21 11/07/21 Range/Units 18:10 19:48 05:40 Total Bilirubin Cancelled 0.5 0.4 AST Cancelled 20 23 ALT Cancelled 12 18 Alkaline Phosphatase Cancelled 107 H 109 H Albumin Cancelled 4.2 3.7 Coags 11/05/21 18:10 PT 12.40 INR 0.90 APTT 21.1 L D-Dimer 5.67 H Cardiac Studies: No Data to Display
[2021-11-07] MEDS: nicotine 21 mg Patch 1 PATCH TRANSDERMA (21:02)
[2021-11-08] VITALS (56 sets, daily range): BP systolic 81–152; BP diastolic 53–99; PULSE 62–130; RESP 7–32; TEMP 36.4–36.6; O2SAT 95–100
[2021-11-08 03:40] LABS: Basophils # 0.1 10^3/uL (0.0-0.1); Basophils % 0.9 %; Eosinophils # 0.2 10^3/uL (0.0-0.8); Hematocrit 42.5 % (37.0-47.0); Hemoglobin 13.3 g/dL (11.5-15.3); Lymphocytes # 2.7 10^3/uL (0.8-4.8); Lymphocytes % 48.3 %; Mean Corpuscular HGB Conc 31.3 g/dL (30.0-36.0); Mean Corpuscular Hemoglobin 30.2 pg (28.0-34.0); Mean Corpuscular Volume 96.6 fl (81-99); Mean Platelet Volume 12.1 fL (7.4-10.4); Monocytes # 0.7 10^3/uL (0.2-0.9); Monocytes % 13.1 %; Neutrophils # 1.93 10^3/uL (1.8-7.7); Neutrophils % 34.5 %; Nucleated Red Blood Cells % 0 %; Platelet Count 179 10^3/cmm (130-400); Red Cell Distribution Width 13.3 % (12.1-15.1); White Blood Count 5.6 10^3/uL (4.0-10.0)
[2021-11-08] MEDS: esmolol drip 2,500 MG/250 ML PREMIX 9.53 MG IV (03:47)
[2021-11-08 04:10] LABS: Alanine Aminotransferase 14 U/L (0-33); Albumin Level 3.4 g/dL (3.5-5.2); Alkaline Phosphatase 95 IU/L (35-105); Anion Gap 10.9 (5-19); Aspartate Amino Transferase 17 U/L (0-32); Blood Urea Nitrogen 11 mg/dL (8-23); Calcium 8.7 mg/dL (8.5-10.5); Carbon Dioxide 27 mmol/L (22-29); Chloride 107 mmol/L (98-107); Globulin 2.4 g/dL (1.3-4.6); Glomerular Filtration Rate 55.8 mL/min (90-130); Glucose 102 mg/dL (65-115); Osmolality Calculated 292 mOsm/kg (285-295); Potassium 3.9 mmol/L (3.5-5.1); Sodium 141 mmol/L (136-145); Total Bilirubin 0.2 mg/dL (0.15-1.2); Total Protein 5.8 g/dL (6.6-8.7)
[2021-11-08] MEDS: venlafaxine ER (24HR) 150 mg Capsule PO (06:37)
[2021-11-08] MEDS: ARIPiprazole 10 mg Tablet 5 MG PO (09:20)
[2021-11-08] MEDS: amiodarone 200 mg Tablet 400 MG PO ×2 (09:20→20:20)
[2021-11-08] MEDS: enoxaparin 60 mg/0.6 mL Syringe SUBCUT (09:20)
[2021-11-08] MEDS: oxybutynin 5 mg Tablet PO ×2 (09:21→17:26)
[2021-11-08] MEDS: atorvastatin 40 mg Tablet 20 MG PO (09:21)
--- NOTE | 2021-11-08 10:40 | PC.NURSE ---
Rounded with Dr. Sales. Reviewed patient's vital signs and medications. Orders to turn Amio drip off now, if patient's heart rate remains below 100, stop Esmolol drip in preparation for cardioversion.
--- NOTE | 2021-11-08 10:44 | PM.PN ---
Subjective Subjective: She tells me she did not sleep well this morning. Continued waking up. Denies chest pain or pressure. At rest heart rate looks better, however, since she turned in bed with exertion her heart rate again shot up to 100 and teens. Vitals/I&O/Wt Last Vital Signs Temp 97.6 F 11/08/21 07:30 Pulse 97 11/08/21 08:00 Resp 16 11/08/21 08:00 BP 117/74 11/08/21 08:00 Pulse Ox 97 11/08/21 08:00 O2 Del Method 11/08/21 08:00 11/07/21 11/08/21 11/08/21 22:59 06:59 14:59 Intake Total 178.752 / 540.739 71.248 / 611.987 Output Total 500 / 1100 Balance 178.752 / -59.261 -428.752 / -488.013 Weight last 48 hrs Weight 63.049 kg Weight 64.864 kg Physical Exam Narrative: Daughter at bedside Const: COMMON NORMALS: patient oriented x3 and alert GENERAL APPEARANCE: cooperative ORIENTATION/CONSCIOUSNESS: Yes awake HENMT: COMMON NORMALS: oropharynx normal Neck/C-Spine: COMMON NORMALS: no JVD Chest: OTHER: Midline scar from childhood surgery. Resp: COMMON NORMALS: normal respiratory effort and clear to auscultation bilaterally AUSCULTATION: clear to auscultation bilaterally Cardio: COMMON NORMALS: no JVD, regular rhythm, S1 normal heart sound present, S2 normal heart sound present and No murmurs present (Cardio) RATE: tachycardic RHYTHM: regular rhythm and abnormal rhythm irregularly irregular HEART SOUNDS: S1 normal heart sound present and S2 normal heart sound present GI: COMMON NORMALS: Normal to inspection, nondistended, normoactive bowel sounds present, Soft to palpation and non-tender PALPATION: Yes Soft to palpation Extremity: COMMON NORMALS: no joint enlargement and no pedal edema OTHER: No cyanosis Neuro: COMMON NORMALS: patient oriented x3 and moves all extremities SENSORIUM/ORIENTATION: Yes alert Skin: COMMON NORMALS: no rashes or lesions noted GENERAL SKIN EXAM: no rashes or lesions noted Data : 11/08/21 03:05 11/08/21 03:05 A&P Assessment and plan (1) Atrial fibrillation/flutter: At rest heart rate now is somewhat better, however, with exertion, even when she turns in bed, starts going up to 100 teens. Difficult to control atrial fibrillation. Appreciate cardiology assessment and recommendations. Amiodarone drip in addition to esmolol. Plans for DC cardioversion. Echocardiogram pending. Continues on anticoagulation. D-dimer was abnormal, VQ scan obtained today with low probability of PE. New A. fib Normal TSH. Status: Acute (2) Chest pain: Has not recurred. Currently free of chest pain or pressure. Preadmission had episodes of chest discomfort particular with exertion, with tachycardia episodes 1-2 days prior to admit. Has had some exertional limitation over the last 2 weeks or so. Additional assessment by TTE once heart rate is better controlled. Has never had a stress test, would benefit from stress testing once heart rate under control. Pain-free currently. Status: Acute (3) Smoking addiction: Nicotine replacement with nicotine patches, nicotine lozenges. Continue to encourage cessation. Status: Acute Plan HTN And other chronic problems Attestations Medical Necessity Statement*: Continue admission for assessment of management of difficult control A. fib RVR Coding Level of Care Code Acute Furnace And Wash Equipment Operator for Chg Fwd Diagnoses Atrial fibrillation/flutter Chest pain R07.9 Smoking addiction F17.200
[2021-11-08 10:59] LABS: SARS Covid-2 Antigen Negative (Negative)
--- NOTE | 2021-11-08 11:35 | PM.PN ---
Subjective Subjective: She was seen before and after CRISTIAN. Medications: Reviewed: Yes Vitals/I&O/Wt Last Vital Signs Temp 97.6 F 11/08/21 07:30 Pulse 97 11/08/21 08:00 Resp 16 11/08/21 08:00 BP 117/74 11/08/21 08:00 Pulse Ox 97 11/08/21 08:00 O2 Del Method 11/08/21 08:00 11/07/21 11/08/21 11/08/21 22:59 06:59 14:59 Intake Total 178.752 / 540.739 71.248 / 611.987 392.317 / 392.317 Output Total 500 / 1100 Balance 178.752 / -59.261 -428.752 / -488.013 392.317 / 392.317 Weight last 48 hrs Weight 139 lb Weight 143 lb Physical Exam Narrative: GENERAL: Averagely built and averagely nourished in no acute distress HEENT: Extraocular movement intact. No pallor or icterus. NECK: central trachea, No JVD, No carotid bruit. CARDIOVASCULAR SYSTEM: S1-S2 irregular. tachycardia+ . No murmur rubs or gallops. RESPIRATORY SYSTEM: Chest clear to auscultation. No wheezes rhonchi or rubs heard. No use of accessory muscles. Mid line sternotomy scar+ ABDOMEN: Soft, nontender and nondistended. Normal bowel sounds present. EXTREMITIES: No cyanosis or clubbing or edema. 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 No focal neurological deficits. SKIN: Normal turgor and temperature. PSYCH: Normal insight and judgment. Data : 11/08/21 03:05 11/08/21 03:05 A&P Assessment and plan (1) Atrial flutter with rapid ventricular response: [id number]=4/9; 1 for female sex and 1 for HTN -at least > 48 hr in duration -already on lovenox, transition to Eliquis 5 mg BID -On PO amiodarone -will benefit from atrial flutter ablation as outpatient Risks and benefits were discussed with the patients. Possible complications including risk of esophageal perforation, stroke discussed with patient. -CRISTIAN highly suspicious for ERAN thrombus -will postpone CV. -start on low dose metoprolol. Status: Acute (2) Dyslipidemia: Status: Acute (3) Chronic low back pain with sciatica: Status: Chronic Qualifiers: Back pain laterality: bilateral Sciatica laterality: bilateral sciatica Qualified Code(s): M54.42 - Lumbago with sciatica, left side; M54.41 - Lumbago with sciatica, right side; G89.29 - Other chronic pain Plan H/O HTN: BP improved. Family h/o CAD: father with heart issues in his 60's h/o Congenital heart sx Thank you for allowing me to participate in patient's care. Please feel free to call with questions or concerns. Attestations Medical Necessity Statement*: needs hospital stay for management of atrial flutter. Time Spent in Patient Care: Greater than 35 minutes Procedures Time out/Consent Time Out Performed: Yes Consent for Procedure: Consent obtained from patient, Consent obtained from other (indicate), Risks & Benefits reviewed and Agrees to proceed with procedure Procedure Narrative CRISTIAN Procedure note Indication: Symptomatic atrial flutter Sedation: Propofol by anesthesia Procedure was explained to the patient in detail and informed consent was obtained. Timeout was called. After achieving adequate sedation, the probe was inserted on second attempt. No blood on the probe post procedure. Prelim report: [Normal left ventricle size and systolic function. left atrial appendage thrombus visualized. No ASD or PFO identified.] Full report to follow. Patient tolerated the procedure well. Coding Level of Care Code Acute Studio Musician for Tayo Thorne Diagnoses Atrial flutter with rapid ventricular response I48.92 Dyslipidemia E78.5 Chronic low back pain with sciatica M54.42; M54.41; G89.29 Back pain laterality: bilateral Sciatica laterality: bilateral sciatica
--- NOTE | 2021-11-08 12:00 | USCV_ITS ---
Isabelle Lenz Age: 66 Gender: F : 1955 Exam Date: 11/08/2021 12:11 Ordering Phys: Bridgette Sales MD ([email or web address]) Technologist: Suyapa Brandon Exam Location: Echo Lab Indication: atrial flutter with rvr BP: 86 / 64 HR: 112 Rhythm: Atrial fibrillation Technical Quality: Good MEASUREMENTS (Male / Female) Normal Values Medications Patient given IV sedation by anesthesia service, for details please refer to the anesthesia report. Complications Intubation easy. Attempts x 1. No blood on probe post procedure. Patient tolerated the procedure well. Proc. Components The CRISTIAN probe was passed into the posterior pharynx , mid- esophagus, distal esophagus, and gastric fundus. FINDINGS Left Ventricle Normal left ventricular size, systolic function and wall thickness, with no regional wall motion abnormalities. Left ventricular ejection fraction is estimated at 60 %. Right Ventricle Normal right ventricular size and systolic function. Right Atrium Normal right atrial size. Left Atrium Normal left atrial size. LA Appendage Normal sized left atrial appendage. Possible thrombus in the left atrial appendage. IA Septum Normal interatrial septum. No patent foramen ovale. No evidence for an atrial septal defect. Mitral Valve Structurally normal mitral valve. No mitral valve stenosis. Trace mitral valve regurgitation. Aortic Valve Structurally normal trileaflet aortic valve. No aortic valve stenosis. No aortic valve regurgitation. Tricuspid Valve Structurally normal tricuspid valve. No tricuspid valve stenosis. Trace tricuspid valve regurgitation. Pulmonic Valve Structurally normal pulmonic valve. No pulmonary valve stenosis. Trace pulmonary valve regurgitation. Pericardium No pericardial effusion. Aorta Normal size aortic root and proximal ascending aorta. No aortic dilation, aneurysm or dissection. CONCLUSIONS 1. Normal left ventricular size, systolic function and wall thickness, with no regional wall motion abnormalities. Left ventricular ejection fraction is estimated at 60 %. 2. No significant valvular abnormality. 3. Possible thrombus in the left atrial appendage. Bridgette Sales MD (Electronically Signed) Final Date: 16 November 2021 17:10 S
[2021-11-08] MEDS: metoprolol tartrate 25 mg Tablet 12.5 MG PO ×2 (14:01→20:20)
[2021-11-08] MEDS: polyethylene glycol 3350 Pkt 17 gm PO (15:25)
--- NOTE | 2021-11-08 15:31 | ANE.PACU2 ---
Inpatient post-anesthesia follow up: Airway intact: Yes Vital signs: Temperature 97.9 F Pulse Rate 71 Respiratory Rate 14 Blood Pressure 135/92 Pulse Oximetry 100 Oxygen Delivery Me thod Room Air Oxygen Flow Rate Fraction of Inspir ed Oxygen Hydration adequate: Yes Nausea and vomiting: No Pain level: 1 Mental status: Baseline
[2021-11-08] MEDS: acetaminophen 325 mg Tablet 650 MG PO (19:47)
[2021-11-08] MEDS: apixaban 5 mg Tablet PO (20:20)
[2021-11-08] MEDS: nicotine 2 mg Gum 4 MG BUCCAL (20:23)
[2021-11-08] MEDS: nicotine 21 mg Patch 1 PATCH TRANSDERMA (21:55)
--- NOTE | 2021-11-08 21:57 | PC.NURSE ---
Removed nicotine patch from R. Shoulder with no difficulty, applied new nicotine patch per order to L. Shoulder.
[2021-11-09] VITALS (98 sets, daily range): BP systolic 94–157; BP diastolic 61–104; PULSE 54–154; RESP 7–37; TEMP 36.4–36.8; O2SAT 84–100
[2021-11-09 03:34] LABS: Basophils % 0.8 %; Eosinophils # 0.1 10^3/uL (0.0-0.8); Eosinophils % 2.3 %; Hematocrit 39.9 % (37.0-47.0); Hemoglobin 12.6 g/dL (11.5-15.3); Lymphocytes # 2.6 10^3/uL (0.8-4.8); Lymphocytes % 51.3 %; Mean Corpuscular HGB Conc 31.6 g/dL (30.0-36.0); Mean Corpuscular Hemoglobin 30.3 pg (28.0-34.0); Mean Corpuscular Volume 95.9 fl (81-99); Mean Platelet Volume 12.5 fL (7.4-10.4); Monocytes # 0.6 10^3/uL (0.2-0.9); Monocytes % 12.1 %; Neutrophils % 33.3 %; Nucleated Red Blood Cells % 0 %; Platelet Count 175 10^3/cmm (130-400); Red Blood Count 4.16 10^6/uL (4.1-5.3); Red Cell Distribution Width 13.3 % (12.1-15.1); White Blood Count 5.1 10^3/uL (4.0-10.0)
[2021-11-09 04:00] LABS: Alanine Aminotransferase 14 U/L (0-33); Albumin Level 3.3 g/dL (3.5-5.2); Alkaline Phosphatase 91 IU/L (35-105); Anion Gap 11.3 (5-19); Aspartate Amino Transferase 21 U/L (0-32); Blood Urea Nitrogen 12 mg/dL (8-23); Calcium 8.9 mg/dL (8.5-10.5); Carbon Dioxide 27 mmol/L (22-29); Chloride 105 mmol/L (98-107); Globulin 2.5 g/dL (1.3-4.6); Glucose 98 mg/dL (65-115); Osmolality Calculated 288 mOsm/kg (285-295); Potassium 4.3 mmol/L (3.5-5.1); Sodium 139 mmol/L (136-145); Total Bilirubin 0.2 mg/dL (0.15-1.2); Total Protein 5.8 g/dL (6.6-8.7)
[2021-11-09] MEDS: nicotine 2 mg Gum 4 MG BUCCAL ×4 (05:29→20:58)
[2021-11-09] MEDS: venlafaxine ER (24HR) 150 mg Capsule PO (05:29)
--- NOTE | 2021-11-09 06:11 | PC.NURSE ---
Patient slept through majority of shift. Entire shift in A-Flutter, HR ranged from 60-90 for the majority of the shift. Patient reporting no angina, no pain currently, requested decaf coffee and water. She is currently listening to [employer]
[2021-11-09] MEDS: apixaban 5 mg Tablet PO ×2 (08:53→20:58)
[2021-11-09] MEDS: atorvastatin 40 mg Tablet 20 MG PO (08:55)
[2021-11-09] MEDS: ARIPiprazole 10 mg Tablet 5 MG PO (08:55)
[2021-11-09] MEDS: oxybutynin 5 mg Tablet PO ×2 (08:55→17:51)
[2021-11-09] MEDS: polyethylene glycol 3350 Pkt 17 gm PO ×2 (08:56→17:51)
[2021-11-09] MEDS: amiodarone 200 mg Tablet 400 MG PO ×2 (08:56→20:58)
[2021-11-09] MEDS: metoprolol tartrate 25 mg Tablet 12.5 MG PO (08:58)
--- NOTE | 2021-11-09 10:38 | P.PN_ITS ---
Subjective Subjective: She walked and her HR went up to 150's Medications: Reviewed: Yes Vitals/I&O/Wt Last Vital Signs Temp 98.2 F 11/09/21 08:32 Pulse 106 H 11/09/21 10:30 Resp 19 H 11/09/21 10:30 BP 148/103 11/09/21 10:30 Pulse Ox 97 11/09/21 10:30 O2 Del Method 11/09/21 08:32 11/08/21 11/09/21 11/09/21 22:59 06:59 14:59 Intake Total 460 / 931.416 180 / 1111.416 600 / 600 Balance 460 / 931.416 180 / 1111.416 600 / 600 Weight last 48 hrs Weight 147 lb 11.2 oz Weight 139 lb Physical Exam Narrative: GENERAL: Averagely built and averagely nourished in no acute distress HEENT: Extraocular movement intact. No pallor or icterus. NECK: central trachea, No JVD, No carotid bruit. CARDIOVASCULAR SYSTEM: S1-S2 irregular. tachycardia+ . No murmur rubs or gallops. RESPIRATORY SYSTEM: Chest clear to auscultation. No wheezes rhonchi or rubs heard. No use of accessory muscles. Mid line sternotomy scar+ ABDOMEN: Soft, nontender and nondistended. Normal bowel sounds present. EXTREMITIES: No cyanosis or clubbing or edema. 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 No focal neurological deficits. SKIN: Normal turgor and temperature. PSYCH: Normal insight and judgment. Data : 11/09/21 03:03 11/09/21 03:03 A&P Assessment and plan (1) Atrial flutter with rapid ventricular response: [id number]=2/9; 1 for female sex and 1 for HTN -at least > 48 hr in duration -on Eliquis 5 mg BID and PO amiodarone (400 mg PO BID x 5 more days--> amiodarone 200 mg BID for 7 days and then 200 mg daily -will benefit from atrial flutter ablation as outpatient -CRISTIAN highly suspicious for ERAN thrombus -will postpone CV. -Increase metoprolol to 25 mg TID -If HR > 110 bpm this afternoon, will add digoxin. Status: Acute (2) Dyslipidemia: Status: Acute (3) Chronic low back pain with sciatica: Status: Chronic Qualifiers: Back pain laterality: bilateral Sciatica laterality: bilateral sciatica Qualified Code(s): M54.42 - Lumbago with sciatica, left side; M54.41 - Lumbago with sciatica, right side; G89.29 - Other chronic pain Plan HTN: Family h/o CAD: father with heart issues in his 60's h/o Congenital heart sx Hypotension: resolved Thank you for allowing me to participate in patient's care. Please feel free to call with questions or concerns. Attestations Medical Necessity Statement*: needs hospital stay for atrial flutter with RVR Time Spent in Patient Care: 16 - 35 minutes Coding Level of Care Code Acute Senior Test Analyst for [facility] Fwd Diagnoses Atrial flutter with rapid ventricular response I48.92 Dyslipidemia E78.5 Chronic low back pain with sciatica M54.42; M54.41; G89.29 Back pain laterality: bilateral Sciatica laterality: bilateral sciatica
[2021-11-09] MEDS: metoprolol tartrate 25 mg Tablet PO ×3 (11:15→20:58)
--- NOTE | 2021-11-09 12:12 | P.PN_ITS ---
Subjective Subjective: She states she still cannot sleep well at night, although slept more during the day, so her schedule has shifted somewhat. She otherwise denies chest pain or pressure. States she tends to walk today to see how her heart rate may respond. Vitals/I&O/Wt Last Vital Signs Temp 98.2 F 11/09/21 08:32 Pulse 70 11/09/21 12:00 Resp 17 11/09/21 12:00 BP 130/95 11/09/21 12:00 Pulse Ox 99 11/09/21 12:00 O2 Del Method 11/09/21 08:32 11/08/21 11/09/21 11/09/21 22:59 06:59 14:59 Intake Total 460 / 931.416 180 / 1111.416 600 / 600 Balance 460 / 931.416 180 / 1111.416 600 / 600 Weight last 48 hrs Weight 66.996 kg Weight 63.049 kg Physical Exam Narrative: Daughter at bedside Const: COMMON NORMALS: patient oriented x3 and alert GENERAL APPEARANCE: cooperative ORIENTATION/CONSCIOUSNESS: Yes awake HENMT: COMMON NORMALS: oropharynx normal Neck/C-Spine: COMMON NORMALS: no JVD Chest: OTHER: Midline scar from childhood surgery. Resp: COMMON NORMALS: normal respiratory effort and clear to auscultation bilaterally AUSCULTATION: clear to auscultation bilaterally Cardio: COMMON NORMALS: no JVD, regular rhythm, S1 normal heart sound present, S2 normal heart sound present and No murmurs present (Cardio) RATE: tachycardic RHYTHM: regular rhythm and abnormal rhythm irregularly irregular HEART SOUNDS: S1 normal heart sound present and S2 normal heart sound present GI: COMMON NORMALS: Normal to inspection, nondistended, normoactive bowel sounds present, Soft to palpation and non-tender PALPATION: Yes Soft to palpation Extremity: COMMON NORMALS: no joint enlargement and no pedal edema OTHER: No cyanosis Neuro: COMMON NORMALS: patient oriented x3 and moves all extremities SENSO RIUM/ORIENTATION: Yes alert Skin: COMMON NORMALS: no rashes or lesions noted GENERAL SKIN EXAM: no rashes or lesions noted Data : 11/09/21 03:03 11/09/21 03:03 A&P Assessment and plan (1) Atrial fibrillation/flutter: On CRISTIAN assessment strong suspicion for REAN thrombus. Could not be cardioverted. Continues on amiodarone, transition to oral, weaned off esmolol drip. Continues with metoprolol. Appreciate cardiology assessment, heart rates to be reassessed for response. Discussed with her risks of CVA also with spontaneous cardioversion and what to watch out for. At rest heart rate now is somewhat better, however, with exertion, even when she turns in bed, starts going up to 100 teens. Difficult to control atrial fibrillation. Echocardiogram with normal EF no R WMA. Mildly increased left atrial size. Pulmonary pressure estimated at 23 mmHg. Continues on anticoagulation. D-dimer was abnormal, VQ scan obtained today with low probability of PE. New A. fib Normal TSH. Status: Acute (2) Chest pain: Has not recurred. Currently free of chest pain or pressure. Preadmission had episodes of chest discomfort particular with exertion, with tachycardia episodes 1-2 days prior to admit. Has had some exertional limitation over the last 2 weeks or so. Additional assessment by TTE once heart rate is better controlled. Has never had a stress test, would benefit from stress testing once heart rate under control. Pain-free currently. Status: Acute (3) Smoking addiction: Nicotine replacement with nicotine patches, nicotine lozenges. Continue to encourage cessation. Status: Acute Plan HTN And other chronic problems Attestations Medical Necessity Statement*: Continue admission for assessment of management of difficult to control atrial fibrillation with RVR unable to cardiovert. 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
[2021-11-09] MEDS: acetaminophen 325 mg Tablet 650 MG PO (18:16)
[2021-11-09] MEDS: nicotine 21 mg Patch 1 PATCH TRANSDERMA (20:57)
[2021-11-10] VITALS (33 sets, daily range): BP systolic 91–143; BP diastolic 60–84; PULSE 55–96; RESP 6–25; TEMP 36.4–36.7; O2SAT 93–100
[2021-11-10] MEDS: venlafaxine ER (24HR) 150 mg Capsule PO (06:05)
[2021-11-10] MEDS: nicotine 2 mg Gum 4 MG BUCCAL (06:05)
[2021-11-10 06:57] LABS: Anion Gap 12.3 (5-19); Blood Urea Nitrogen 9 mg/dL (8-23); Calcium 9.1 mg/dL (8.5-10.5); Carbon Dioxide 28 mmol/L (22-29); Chloride 106 mmol/L (98-107); Glucose 108 mg/dL (65-115); Osmolality Calculated 293 mOsm/kg (285-295); Potassium 4.3 mmol/L (3.5-5.1); Sodium 142 mmol/L (136-145)
--- NOTE | 2021-11-10 08:42 | P.PN_ITS ---
Subjective Subjective: Patient is denying any chest pain or any significant palpitations. Telemetry shows atrial flutter with a variable conduction. Heart rate is in the 60s and 70s. She is currently on amiodarone and metoprolol. She is on metoprolol 25 mg p.o. 3 times daily and amiodarone 400 mg p.o. twice daily. No side effects of the medication so far. Medications: Medication Review Details: Current Medications Acetaminophen (Acetaminophen 325 Mg Tablet) 650 mg PO Q6H PRN PRN Reason: Mild/Mod Pain Or Temp >/= 101 Last Admin: 11/09/21 18:16 Dose: 650 mg Albuterol Sulfate (Albuterol 8 Gm Mdi) 2 puff INHALATION Q6H PRN PRN Reason: Shortness Of Breath Alprazolam (Alprazolam 0.5 Mg Tablet) 0.5 mg PO BID PRN PRN Reason: anxiety Amiodarone HCl (Amiodarone 200 Mg Tablet) 400 mg PO 0900,2100 [facility] Last Admin: 11/09/21 20:58 Dose: 400 mg Apixaban (Apixaban 5 Mg Tablet) 5 mg PO BID@0900,2100 [facility] Last Admin: 11/09/21 20:58 Dose: 5 mg Aripiprazole (Aripiprazole 10 Mg Tablet) 5 mg PO DAILY [facility] Last Admin: 11/09/21 08:55 Dose: 5 mg Atorvastatin Calcium (Atorvastatin 40 Mg Tablet) 20 mg PO DAILY [facility] Last Admin: 11/09/21 08:55 Dose: 20 mg Gabapentin (Gabapentin 300 Mg Capsule) 300 mg PO BEDTIME [facility] Last Admin: 11/05/21 22:54 Dose: 300 mg Esmolol HCl (Brevibloc Drip) 2,500 mg in 250 mls @ 0 mls/hr IV .Q0M [facility]; Protocol Last Titration: 11/08/21 12:05 Dose: 0 mcg/kg/min, 0 mls/hr Amiodarone HCl 900 mg/Dextrose/ IV Miscellaneous Supplies 518 mls @ 0 mls/hr IV .Q0M [facility]; Protocol Last Titration: 11/08/21 10:45 Dose: 0 mg/min, 0 mls/hr Metoprolol Tartrate (Metoprolol Tartrate 25 Mg Tablet) 25 mg PO TID [facility] Last Admin: 11/09/21 20:58 Dose: 25 mg Nicotine (Nicotine 21 Mg Patch) 1 patch TRANSDERMA Q24H [facility] Last Admin: 11/09/21 20:57 Dose: 1 patch Nicotine Polacrilex (Nicotine 2 Mg Gum) 4 mg BUCCAL Q2H [facility] Last Admin: 11/10/21 06:49 Dose: Not Given Ondansetron HCl (Ondansetron 2 Mg/Ml Sdv 2 Ml) 4 mg IVP Q6H PRN PRN Reason: NAUSEA AND VOMITING Oxybutynin Chloride (Oxybutynin 5 Mg Tablet) 5 mg PO BID [facility] Last Admin: 11/09/21 17:51 Dose: 5 mg Polyethylene Glycol (Polyethylene Glycol 3350 Pkt 17 Gm) 17 gm PO BID [facility] Last Admin: 11/09/21 17:51 Dose: 17 gm Trazodone HCl (Trazodone 150 Mg Tablet) 150 mg PO DIRECTED PRN PRN Reason: sleep Venlafaxine HCl (Venlafaxine Er (24hr) 150 Mg Capsule) 150 mg PO QAM [facility] Last Admin: 11/10/21 06:05 Dose: 150 mg Vitals/I&O/Wt Last Vital Signs Temp 97.6 F 11/09/21 20:15 Pulse 96 11/10/21 06:15 Resp 20 H 11/10/21 06:15 BP 111/73 11/10/21 06:15 Pulse Ox 99 11/10/21 06:15 O2 Del Method 11/09/21 21:04 11/09/21 11/10/21 11/10/21 22:59 06:59 14:59 Intake Total 960 / 1660 Balance 960 / 1660 Weight last 48 hrs Weight 147 lb 11.2 oz Physical Exam Narrative: GENERAL: The patient is alert and oriented times three. Not in any acute distress. HEENT: No significant pallor, icterus or lymphadenopathy.Oral cavity: There are no mucous membrane lesions. NECK: Trachea appears to be central. No masses noted. No JVD or thyromegaly appreciated. RESPIRATORY: Chest is symmetrical. No intercostals muscle retraction or any accessory muscle activation. There is no chest wall tenderness. Breath sounds are heard bilaterally. No rales or rhonchi heard. No evidence of any consolidation. BREASTS: Deferred. HEART: The first heart sound is variable. Second heart sound is normal.. No S3 or S4. Short systolic murmur in the left sternal border. No diastolic murmurs. No pericardial rub ABDOMEN: No vessel pulsations or distention. No tenderness. No organomegaly appreciated. Bowel sounds are normally heard. : Deferred. RECTAL: Deferred. LYMPHATIC: No lymphadenopathy noted in the neck. EXTREMITIES: No edema or cyanosis. No clubbing. MUSCULOSKELETAL: No acute joint deformities or swelling SKIN: There are no significant rashes or ecchymosis NEUROPSYCHIATRIC: The patient is alert and oriented x3. Appears to be in a good mood. No tremors or rigidity noted. Data : 11/09/21 03:03 11/10/21 05:55 Other Labs: Laboratory Last Values WBC 5.1 10^3/uL (4.0-10.0) 11/09/21 03:03 Corrected WBC Cancelled 11/05/21 18:10 RBC 4.16 10^6/uL (4.1-5.3) 11/09/21 03:03 Hgb 12.6 g/dL (11.5-15.3) 11/09/21 03:03 Hct 39.9 % (37.0-47.0) 11/09/21 03:03 MCV 95.9 fl (81-99) 11/09/21 03:03 MCH 30.3 pg (28.0-34.0) 11/09/21 03:03 MCHC 31.6 g/dL (30.0-36.0) 11/09/21 03:03 RDW 13.3 % (12.1-15.1) 11/09/21 03:03 Plt Count 175 10^3/cmm (130-400) 11/09/21 03:03 MPV 12.5 fL (7.4-10.4) H 11/09/21 03:03 Gran % Cancelled 11/05/21 18:10 Neut % (Auto) 33.3 % 11/09/21 03:03 Lymph % (Auto) 51.3 % 11/09/21 03:03 [place] % (Auto) 12.1 % 11/09/21 03:03 Eos % (Auto) 2.3 % 11/09/21 03:03 Baso % (Auto) 0.8 % 11/09/21 03:03 Neut # (Auto) 1.70 10^3/uL (1.8-7.7) L 11/09/21 03:03 Lymph # (Auto) 2.6 10^3/uL (0.8-4.8) 11/09/21 03:03 [place] # (Auto) 0.6 10^3/uL (0.2-0.9) 11/09/21 03:03 Eos # (Auto) 0.1 10^3/uL (0.0-0.8) 11/09/21 03:03 Baso # (Auto) 0.0 10^3/uL (0.0-0.1) 11/09/21 03:03 Absolute Gran (auto) Cancelled 11/05/21 18:10 Nucleated RBC % (auto) 0 % 11/09/21 03:03 Nucleated RBCs # 0.0 /100WBC 11/09/21 03:03 PT 12.40 SECONDS (12.1-14.9) 11/05/21 18:10 INR 0.90 (0.8-1.2) 11/05/21 18:10 APTT 21.1 SECONDS (23.9-36.7) L 11/05/21 18:10 D-Dimer 5.67 ug/mIFEU (0-0.59) H 11/05/21 18:10 Sodium 142 mmol/L (136-145) 11/10/21 05:55 Potassium 4.3 mmol/L (3.5-5.1) 11/10/21 05:55 Chloride 106 mmol/L (98-107) 11/10/21 05:55 Carbon Dioxide 28 mmol/L (22-29) 11/10/21 05:55 Anion Gap 12.3 (5-19) 11/10/21 05:55 BUN 9 mg/dL (8-23) 11/10/21 05:55 Creatinine 0.9 mg/dL (0.5-0.9) 11/10/21 05:55 GFR Calculation 63.0 mL/min (90-130) L 11/10/21 05:55 Glucose 108 mg/dL (65-115) 11/10/21 05:55 Calculated Osmolality 293 mOsm/kg (285-295) 11/10/21 05:55 Calcium 9.1 mg/dL (8.5-10.5) 11/10/21 05:55 Magnesium 2.0 mg/dL (1.7-2.3) 11/05/21 19:48 Total Bilirubin 0.2 mg/dL (0.15-1.2) 11/09/21 03:03 AST 21 U/L (0-32) 11/09/21 03:03 ALT 14 U/L (0-33) 11/09/21 03:03 Alkaline Phosphatase 91 IU/L (35-105) 11/09/21 03:03 Creatine Kinase 100 U/L (26-192) 11/05/21 19:48 Troponin T Baseline 13 ng/L (0-10) H 11/05/21 19:48 Troponin T 120 Minute 12.96 ng/L (0-10) H 11/05/21 21:41 Delta Troponin T -0.04 ABS# (0-10) L 11/05/21 21:41 Troponin T Hi Sens 6Hr 12.71 ng/L (0-10) H 11/05/21 00:40 Troponin T Hi Sens 6Hr Delta -0.29 ng/L (0-12) L 11/05/21 00:40 Total Protein 5.8 g/dL (6.6-8.7) L 11/09/21 03:03 Albumin 3.3 g/dL (3.5-5.2) L 11/09/21 03:03 Globulin 2.5 g/dL (1.3-4.6) 11/09/21 03:03 TSH 4.14 uIU/mL (0.27-4.20) 11/06/21 14:45 SARS-CoV-2 Ag (Rapid) Negative (Negative) 11/08/21 10:10 A&P Assessment and plan (1) Atrial flutter with rapid ventricular response: Patient is on Eliquis. So far she has no bleeding complications. She may continue the amiodarone at the current dose. Metoprolol may be cut back to 25 mg p.o. twice daily. Medications as advised. Status: Acute (2) Left atrial thrombus: May continue on the oral anticoagulation. Status: Acute (3) Dyslipidemia: Evaluation follow-up with the primary care provider. Status: Acute (4) Chronic low back pain with sciatica: Make continue on the current medications . Follow-up evaluation management as per the primary care Status: Chronic Qualifiers: Back pain laterality: bilateral Sciatica laterality: bilateral sciatica Qualified Code(s): M54.42 - Lumbago with sciatica, left side; M54.41 - Lumbago with sciatica, right side; G89.29 - Other chronic pain (5) Chest pain: Patient has not had any recurrence of chest pain. She may benefit from a Myocardial perfusion imaging, to rule out any occult ischemia. This may be done as an outpatient. Status: Acute (6) Smoking addiction: Patient is on nicotine patch. Management as per the primary care. Status: Acute Plan Since the patient's overall cardiovascular status seems to be stable, may go home on the current medications. Need to be seen in the [facility] by the nurse practitioner in 1 week. Consider doing a Myocardial perfusion imaging as an outpatient- Appointment with Dr. Sales in 1 month. 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
[2021-11-10] MEDS: atorvastatin 40 mg Tablet 20 MG PO (09:02)
[2021-11-10] MEDS: amiodarone 200 mg Tablet 400 MG PO (09:03)
[2021-11-10] MEDS: ARIPiprazole 10 mg Tablet 5 MG PO (09:03)
[2021-11-10] MEDS: oxybutynin 5 mg Tablet PO (09:03)
[2021-11-10] MEDS: apixaban 5 mg Tablet PO (09:03)
[2021-11-10] MEDS: metoprolol tartrate 25 mg Tablet PO (09:04)
--- NOTE | 2021-11-10 09:39 | PC.NURSE ---
[id number] Wise. Reviews vital signs, activity tolerance, medications, and plan of care. May discharge patient home later today if cleared by cardiology.
--- NOTE | 2021-11-10 10:46 | PC.SOCIAL ---
IMM Updated Updated pt on IMM. No questions voiced. Provided pt a copy. Initialed, dated, & timed copy in chart.
--- NOTE | 2021-11-10 12:55 | P.DS_ITS ---
Discharge Providers Date of Admission: 11/05/21 22:02 Date of Discharge: November 10, 2021 Attending Provider at Admission: Phill Wise Attending Provider at Discharge: Phill Wise Primary Care Provider: Genie Vences DO Diagnoses at Discharge Discharge Diagnosis (1) Atrial flutter with rapid ventricular response: Status: Acute (2) Left atrial thrombus: Status: Acute (3) Dyslipidemia: Status: Acute (4) Chronic low back pain with sciatica: Status: Chronic Qualifiers: Back pain laterality: bilateral Sciatica laterality: bilateral sciatica Qualified Code(s): M54.42 - Lumbago with sciatica, left side; M54.41 - Lumbago with sciatica, right side; G89.29 - Other chronic pain (5) Chest pain: Status: Acute (6) Smoking addiction: Status: Acute Reason for Visit Reason for Visit: right hand and arm pain Hospital Course Hospital Course Pleasant 66-year-old lady with history of congenital heart disease, 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 Found to be in atrial fibrillation with RVR at presentation, with soft blood pressure, was started initially on esmolol drip, with partial response, but still difficult to control A. fib with RVR. Without additional response to digoxin. Was started on anticoagulation. Was additionally assessed by cardiology, started on amiodarone drip, still with tachycardia, underwent CRISTIAN with plan for possible cardioversion, however, with strong suspicion of ERAN thrombus cardioversion was deferred. Continues on anticoagulation. Amiodarone was transitioned to p.o., and with weaning off e smolol drip beta-anya transition to metoprolol 25 mg 3 times daily. Her heart rates at rest have overall improved, staying in the 80s, initially still with exertional tachycardia, which was better with ambulation last night, heart rates mostly staying in the 90s. She is feeling better today. Has had no recurrence of chest pain or pressure. She is asked to follow-up with cardiology, with consideration also of myocardial perfusion imaging as an outpatient. Please follow for any corresponding end organ damage with amiodarone if remains on it longer term. She is also trying to quit smoking and has been intends on doing so. She has done well with nicotine patches and lozenges while in the hospital. Continue to assist and encourage cessation. Physical Exam Narrative: Daughter at bedside Const: COMMON NORMALS: patient oriented x3 and alert GENERAL APPEARANCE: cooperative ORIENTATION/CONSCIOUSNESS: Yes awake HENMT: COMMON NORMALS: oropharynx normal Neck/C-Spine: COMMON NORMALS: no JVD Chest: OTHER: Midline scar from childhood surgery. Resp: COMMON NORMALS: normal respiratory effort and clear to auscultation bilaterally AUSCULTATION: clear to auscultation bilaterally Cardio: COMMON NORMALS: no JVD, regular rhythm, S1 normal heart sound present, S2 normal heart sound present and No murmurs present (Cardio) RATE: tachycardic RHYTHM: regular rhythm and abnormal rhythm irregularly irregular HEART SOUNDS: S1 normal heart sound present and S2 normal heart sound present GI: COMMON NORMALS: Normal to inspection, nondistended, normoactive bowel sounds present, Soft to palpation and non-tender PALPATION: Yes Soft to palpation Extremity: COMMON NORMALS: no joint enlargement and no pedal edema OTHER: No cyanosis Neuro: COMMON NORMALS: patient oriented x3 and moves all extremities SENSORIUM/ORIENTATION: Yes alert Skin: COMMON NORMALS: no rashes or lesions noted GENERAL SKIN EXAM: no rashes or lesions noted Discharge Data Studies Completed and Pending Completed Studies During Hospitalization Category Date Time Status XR chest 1V portable [id number] Stat Exams 11/05/21 16:56 Completed NM pul vent and perfus* [id number] Routine Nuc Med 11/06/21 21:01 Completed CV. echo complete* [id number] Routine Ultrasound 11/06/21 22:02 Completed Pending at discharge Category Date Time Status Basic Metabolic Panel AM LABS Lab 11/11/21 04:00 Ordered Basic Metabolic Panel AM LABS Lab 11/12/21 04:00 Ordered CV. echo transesophageal [id number] Routine Ultrasound 11/08/21 12:00 Taken Radiology Impressions Chest X-Ray 11/05/21 16:56 IMPRESSION: 1. Negative for infiltrate. 2. Emphysematous changes suspected. Laboratory Results WBC 5.1 10^3/uL (4.0-10.0) 11/09/21 03:03 Corrected WBC Cancelled 11/05/21 18:10 RBC 4.16 10^6/uL (4.1-5.3) 11/09/21 03:03 Hgb 12.6 g/dL (11.5-15.3) 11/09/21 03:03 Hct 39.9 % (37.0-47.0) 11/09/21 03:03 MCV 95.9 fl (81-99) 11/09/21 03:03 MCH 30.3 pg (28.0-34.0) 11/09/21 03:03 MCHC 31.6 g/dL (30.0-36.0) 11/09/21 03:03 RDW 13.3 % (12.1-15.1) 11/09/21 03:03 Plt Count 175 10^3/cmm (130-400) 11/09/21 03:03 MPV 12.5 fL (7.4-10.4) H 11/09/21 03:03 Gran % Cancelled 11/05/21 18:10 Neut % (Auto) 33.3 % 11/09/21 03:03 Lymph % (Auto) 51.3 % 11/09/21 03:03 [place] % (Auto) 12.1 % 11/09/21 03:03 Eos % (Auto) 2.3 % 11/09/21 03:03 Baso % (Auto) 0.8 % 11/09/21 03:03 Neut # (Auto) 1.70 10^3/uL (1.8-7.7) L 11/09/21 03:03 Lymph # (Auto) 2.6 10^3/uL (0.8-4.8) 11/09/21 03:03 [place] # (Auto) 0.6 10^3/uL (0.2-0.9) 11/09/21 03:03 Eos # (Auto) 0.1 10^3/uL (0.0-0.8) 11/09/21 03:03 Baso # (Auto) 0.0 10^3/uL (0.0-0.1) 11/09/21 03:03 Absolute Gran (auto) Cancelled 11/05/21 18:10 Nucleated RBC % (auto) 0 % 11/09/21 03:03 Nucleated RBCs # 0.0 /100WBC 11/09/21 03:03 PT 12.40 SECONDS (12.1-14.9) 11/05/21 18:10 INR 0.90 (0.8-1.2) 11/05/21 18:10 APTT 21.1 SECONDS (23.9-36.7) L 11/05/21 18:10 D-Dimer 5.67 ug/mIFEU (0-0.59) H 11/05/21 18:10 Sodium 142 mmol/L (136-145) 11/10/21 05:55 Potassium 4.3 mmol/L (3.5-5.1) 11/10/21 05:55 Chloride 106 mmol/L (98-107) 11/10/21 05:55 Carbon Dioxide 28 mmol/L (22-29) 11/10/21 05:55 Anion Gap 12.3 (5-19) 11/10/21 05:55 BUN 9 mg/dL (8-23) 11/10/21 05:55 Creatinine 0.9 mg/dL (0.5-0.9) 11/10/21 05:55 GFR Calculation 63.0 mL/min (90-130) L 11/10/21 05:55 Glucose 108 mg/dL (65-115) 11/10/21 05:55 Calculated Osmolality 293 mOsm/kg (285-295) 11/10/21 05:55 Calcium 9.1 mg/dL (8.5-10.5) 11/10/21 05:55 Magnesium 2.0 mg/dL (1.7-2.3) 11/05/21 19:48 Total Bilirubin 0.2 mg/dL (0.15-1.2) 11/09/21 03:03 AST 21 U/L (0-32) 11/09/21 03:03 ALT 14 U/L (0-33) 11/09/21 03:03 Alkaline Phosphatase 91 IU/L (35-105) 11/09/21 03:03 Creatine Kinase 100 U/L (26-192) 11/05/21 19:48 Troponin T Baseline 13 ng/L (0-10) H 11/05/21 19:48 Troponin T 120 Minute 12.96 ng/L (0-10) H 11/05/21 21:41 Delta Troponin T -0.04 ABS# (0-10) L 11/05/21 21:41 Troponin T Hi Sens 6Hr 12.71 ng/L (0-10) H 11/05/21 00:40 Troponin T Hi Sens 6Hr Delta -0.29 ng/L (0-12) L 11/05/21 00:40 Total Protein 5.8 g/dL (6.6-8.7) L 11/09/21 03:03 Albumin 3.3 g/dL (3.5-5.2) L 11/09/21 03:03 Globulin 2.5 g/dL (1.3-4.6) 11/09/21 03:03 TSH 4.14 uIU/mL (0.27-4.20) 11/06/21 14:45 SARS-CoV-2 Ag (Rapid) Negative (Negative) 11/08/21 10:10 Vitals Last Vital Signs Temp 97.6 F 11/10/21 09:00 Pulse 88 11/10/21 11:00 Resp 17 11/10/21 11:00 BP 91/63 11/10/21 11:00 Pulse Ox 97 11/10/21 11:00 O2 Del Method 11/10/21 08:00 Discharge Plan Discharge Patient Disposition: Home Condition: Stable Prescriptions: New nicotine 21 mg/24 hr Patch 24 Hour 1 patch transdermal Q24H Qty: 30 3RF polyethylene glycol 3350 17 gram Powder In Packet 17 g PO BID Qty: 90 0RF nicotine (polacrilex) 2 mg Gum 4 mg buccal Q2H Qty: 90 3RF amiodarone [Pacerone] 200 mg Tablet 400 mg PO 0900,2100 Qty: 90 0RF Rx Instructions: Take 400 mg twice a day for 7 days, then decrease to 200 mg twice a day. Eliquis 5 mg Tablet 5 mg PO BID@0900,2100 Qty: 180 0RF metoprolol tartrate 25 mg Tablet 25 mg PO BID Qty: 180 0RF Continued turmeric 400 mg capsule 400 mg PO DAILY alprazolam 0.5 mg tablet 0.5 mg PO BID PRN (Reason: anxiety) Qty: 60 3RF trazodone 150 mg tablet 150 mg PO DIRECTED PRN (Reason: sleep) Qty: 180 2RF Rx Instructions: Take one tablet at bedtime as needed for sleep may take half tablet prior 2 am if not asleep. venlafaxine [Effexor XR] 75 mg capsule,extended release 24hr 75 mg PO QAM Qty: 90 2RF venlafaxine [Effexor XR] 150 mg capsule,extended release 24hr 150 mg PO QAM Qty: 90 2RF oxybutynin chloride 5 mg tablet 5 mg PO BID 90 Days Qty: 180 1RF atorvastatin 20 mg tablet 20 mg PO DAILY Qty: 30 5RF B Complex w-Vit C 40-87-07-5-250 mg Tablet 1 tab PO DAILY Calcarb 600 With Vitamin D 600 mg-10 mcg (400 unit) Tablet 1 tab PO DAILY elderberry fruit and flower 460-115 mg Capsule 1 cap PO DAILY gabapentin 300 mg capsule 300 mg PO BEDTIME hydrochlorothiazide 25 mg tablet 25 mg PO DAILY Abilify 5 mg tablet 5 mg PO DAILY metoprolol tartrate 25 mg tablet 25 mg PO DAILY melatonin 3 mg capsule 3 mg PO BEDTIME albuterol sulfate 90 mcg/actuation Hfa Aerosol Inhaler 2 puff INHALATION Q6H PRN (Reason: Shortness Of Breath) Discontinued ibuprofen 200 mg capsule 800 mg PO Q6H PRN (Reason: pain) Discharge Orders: Discharge Order (Routine); Ordered 11/10/21 Ordered By: Phill Wise Referrals: Genie Vences DO [Primary Care Provider] - 1 month Montse Monsivais FNP [Nurse Practitioner] - 1 week Bridgette Sales MD [Physician] - 1 month Patient Instructions: Metoprolol (By mouth), Amiodarone (By mouth), Apixaban (By mouth), How to Stop Smoking (GEN), Cigarette Smoking and Your Health (GEN) Activity Restrictions/Additional Instructions: Monitor your heart rates and blood pressures twice daily. Record values to bring to your appointment. Follow-up with cardiology office for reassessment of atrial fibrillation control. Follow-up with your social media marketing manager and your primary doctor regarding amiodarone if you are staying on it for longer time. Appropriate monitoring for any organ injury will need to be set up. Call 911 immediately in case you develop any trouble speaking or facial droop, vision changes, numbness or weakness in any extremity or any other concerning symptoms that may indicate a stroke. Continue efforts to stop smoking. Discharge Attestations Time Spent in Discharge Care*: greater than 30 min Quality Metrics Clinical Quality Measures [ No reported AMI, CVA or VTE this stay] Coding Level of Care Code Acute Chg FW DC note Diagnoses Atrial flutter with rapid ventricular response I48.92 Left atrial thrombus I51.3 Dyslipidemia E78.5 Chronic low back pain with sciatica M54.42; M54.41; G89.29 Back pain laterality: bilateral Sciatica laterality: bilateral sciatica Chest pain R07.9 Smoking addiction F17.200
== END 2021-11-10 14:05 | disposition home or self-care (01) | DRG 309 ==
LOC: ER 19:59 → ICU 22:09
PROVIDERS: Internal Medicine Cardiovascular Disease; Admitting Provider Internal Medicine; Emergency Provider Family Medicine; PCP Family Medicine; Visit Provider Internal Medicine
DX: I48.91 Unspecified atrial fibrillation (principal); F33.9 Major depressive disorder, recurrent, unspecified; I48.92 Unspecified atrial flutter; I10 Essential (primary) hypertension; I51.3 Intracardiac thrombosis, not elsewhere classified; I25.10 Atherosclerotic heart disease of native coronary artery without angina pectoris; I25.2 Old myocardial infarction; E78.5 Hyperlipidemia, unspecified; M54.42 Lumbago with sciatica, left side; M54.41 Lumbago with sciatica, right side; G89.29 Other chronic pain; J44.9 Chronic obstructive pulmonary disease, unspecified; F17.200 Nicotine dependence, unspecified, uncomplicated; F43.12 Post-traumatic stress disorder, chronic; F41.1 Generalized anxiety disorder; F17.210 Nicotine dependence, cigarettes, uncomplicated; Z95.1 Presence of aortocoronary bypass graft; Z82.49 Family history of ischemic heart disease and other diseases of the circulatory system; Z87.74 Personal history of (corrected) congenital malformations of heart and circulatory system; Z20.822 Contact with and (suspected) exposure to COVID-19
CPT/HCPCS: 36415; 71045; 78014; 80048; 80053; 82550; 83735; 84443; 84484; 85025; 85378; 85610; 85730; 87426; 93005; 93306; 93312; 93320; 93325; 94760; 96365; 96366; 96367; 96372; 96375; 99291; A9540; A9567; J0282; J1160; J1650; J3490; J7060

== ENCOUNTER → 2021-11-22 14:52 | Outpatient (BNVA) | payer MEDICARE, MEDICAID, SELFPAY ==
[2020-07-05 09:54] VITALS: BP 123/86; BMI 20.9
== END ==
PROVIDERS: PCP Family Medicine; Visit Provider Nurse Practitioner Family
DX: I48.92 Unspecified atrial flutter (principal); Z79.01 Long term (current) use of anticoagulants; R00.0 Tachycardia, unspecified
CPT/HCPCS: 93005; 99213; 99214

== ENCOUNTER → 2021-12-25 15:31 | Outpatient (BNVA) | payer MEDICARE, MEDICAID, SELFPAY ==
[2020-07-05 09:54] VITALS: BP 123/86; BMI 20.9
== END ==
PROVIDERS: PCP Family Medicine; Visit Provider Internal Medicine Cardiovascular Disease
DX: I48.92 Unspecified atrial flutter (principal); Z79.01 Long term (current) use of anticoagulants; I10 Essential (primary) hypertension; I51.3 Intracardiac thrombosis, not elsewhere classified; Z87.891 Personal history of nicotine dependence
CPT/HCPCS: 93005; 99214

== ENCOUNTER → 2022-03-27 14:17 | Outpatient (BNVA) | payer MEDICARE, MEDICAID, OTHER, SELFPAY ==
[2020-07-05 09:54] VITALS: BP 123/86; BMI 20.9
== END ==
PROVIDERS: PCP Family Medicine; Visit Provider Nurse Practitioner Psychiatric/Mental Health
DX: Z79.899 Other long term (current) drug therapy (principal)
CPT/HCPCS: 80053; 80061; 83036

== ENCOUNTER → 2022-07-11 15:22 | Outpatient (BNVA) | payer MEDICARE, MEDICAID, OTHER, SELFPAY ==
[2020-07-05 09:54] VITALS: BP 123/86; BMI 20.9
== END ==
PROVIDERS: PCP Family Medicine; Visit Provider Family Medicine
DX: R79.89 Other specified abnormal findings of blood chemistry (principal)
CPT/HCPCS: 80053

== ENCOUNTER → 2022-07-22 12:53 | Outpatient (BNVA) | payer MEDICARE, MEDICAID, SELFPAY ==
[2020-07-05 09:54] VITALS: BP 123/86; BMI 20.9
== END ==
PROVIDERS: PCP Family Medicine; Visit Provider Nurse Practitioner Family
DX: I48.91 Unspecified atrial fibrillation (principal); I25.10 Atherosclerotic heart disease of native coronary artery without angina pectoris; I10 Essential (primary) hypertension; I48.92 Unspecified atrial flutter; Z87.891 Personal history of nicotine dependence; Z79.01 Long term (current) use of anticoagulants
CPT/HCPCS: 99214

== ENCOUNTER 2022-12-17 07:34 | Emergency (ER) | payer MEDICARE, MEDICAID, SELFPAY ==
[2020-07-05 09:54] VITALS: BP 123/86; BMI 20.9
[2022-12-17] VITALS (8 sets, daily range): BP systolic 113–158; BP diastolic 78–122; PULSE 66–89; RESP 14–22; TEMP 37.1; O2SAT 96–99; BMI 25.0
--- NOTE | 2022-12-17 07:46 | ECG_ITS ---
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 Measurements Intervals [place] Rate: 73 P: -3 [place]: 137 QRS: 55 QRSD: 94 T: 69 QT: 408 QTc: 453 Interpretive Statements SINUS RHYTHM WITH SINUS ARRHYTHMIA Compared to ECG 11/05/2021 20:40:53 Atrial flutter no longer present Myocardial infarct finding no longer present Electronically Signed On 12-17-2022 11:05:33 CDT by Denis Urias M.D. [id number]
--- NOTE | 2022-12-17 07:46 | ECG_ITS ---
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 Measurements Intervals [place] Rate: 73 P: -3 [place]: 137 QRS: 55 QRSD: 94 T: 69 QT: 408 QTc: 453 Interpretive Statements SINUS RHYTHM WITH SINUS ARRHYTHMIA Compared to ECG 11/05/2021 20:40:53 Atrial flutter no longer present Myocardial infarct finding no longer present Electronically Signed On 12-17-2022 11:05:44 CDT by Denis Urias M.D. [id number] f
--- NOTE | 2022-12-17 07:47 | XR_ITS ---
WS: [id number] Exam: XR chest 1V portable [id number] Date/Time of Exam: 12/17/2022 7:49 AM Reason For Exam: weakness, fatigue Comparison 11/05/2021. The lungs are hyperinflated and clear. Cardiomediastinal silhouette is unremarkable. Signs of previou s median sternotomy. No pleural effusions. Bony structures are intact. Dextroscoliosis at the thoraco lumbar junction. IMPRESSION: 1. Pulmonary hyperinflation. No acute process.
--- NOTE | 2022-12-17 07:49 | ED_ITS ---
HPI - General Adult General: Chief complaint: Weakness Stated complaint: weakness Time Seen by Provider: 12/17/22 07:35 Source: patient and family Mode of arrival: ambulatory Limitations: no limitations History of Present Illness: Patient is a 67-year-old female here in the emergency department with complaints of weakness, dyspnea, anxiety, and intermittent high blood pressure and heart rate readings x 4-5 days. She arrives very anxious stating over the past few days she does not know if her blood pressure cuff is accurate stating she will get high and low blood pressure readings. She states she takes metoprolol for her blood pressure and has not missed any doses on this. She does states she has a history of atrial fibrillation and last time this was found she was subsequently admitted to the hospital. She starts sobbing when she thinks about being admitted to the hospital again stating she has animals at home to care for. Patient states sometimes her blood pressure cuff tells her her pulse rate is in the 130s. She does not complain of palpitations or feeling like her heart is skipping beats. She does feel like it beats fast at times but again thinks this could be related to anxiety. She states she has been out of her Amiodarone and Abilify (out for about 2 weeks) as these are mail order medications and they have not came yet. She denies cough. She is not having any chest pain. No fevers, COVARRUBIAS, diarrhea. No sick contacts. Tactical Response Group Officer is Dr. Sales. Family with her states she has been under a great deal of stress stating her daughter is living next to her and daughter is making bad decisions in life and that is greatly affecting patient. Onset (ago): day(s) Relieving factors: none Exacerbating factors: none Associated symptoms: Reports dyspnea; Deny chest pain, confusion, headache(s), malaise, nausea, rash, palpitations, syncope or vomiting Treatments prior to arrival: none Review of Systems Const: Reports: fatigue and other (generalized weakness, high BP); Denies: fever(s), chills, body aches or malaise Eyes: Denies: change in vision, blurry vision, photophobia, floaters or seeing flashes Card: Reports: other (reports heart racing at times); Denies: chest pain, palpitations, irregular heart rhythm, edema, swelling of feet/ankles, lightheadedness, syncope, pre-syncope, dyspnea on exertion, orthopnea, leg pain with exertion or acrocyanosis Resp: Reports: dyspnea; Denies: productive cough, non-productive cough, wheezing, hemoptysis or chest congestion GI: Denies: abdominal pain, nausea, vomiting or diarrhea : Denies: flank pain, dysuria or hematuria Musc: Denies: neck pain, back pain, extremity pain or joint pain Skin/Breast: Denies: rash Neuro: Denies: headache(s), numbness in extremities, weakness in extremities, sensory changes, dizziness, vertigo or confusion PFSH ED PFSH: Medical History Benign essential HTN Bereavement Chronic low back pain with sciatica Chronic post-traumatic stress disorder Enrolled in chronic care management Generalized anxiety disorder Major depressive disorder, recurrent severe without psychotic features Psychiatric care Smoking addiction Surgical History H/O total hysterectomy History of back surgery History of ear surgery History of open heart surgery No pertinent past surgical history Family History Father Heart disease Grandmother Cancer Brother Hepatitis B Other CAD (coronary artery disease) Diabetes Hyperlipidemia Hypertension Psychiatric illness Social History Smoking and tobacco status: former smoker Quit status (tobacco): has tried quititng Number of times tried to quit tobacco: 1 Second hand smoke exposure: Yes Smoking risk assessment/counseling performed?: No Alcohol intake: former Year of sobriety/quit date alcohol: 2020 Desire information about alcohol rehabilitation?: No Substance/Drug Use: former Date of last use: 1998 Adopted: No Caregiver/support person: No Lives independently: Yes Household members: family Housing: House Marital status: / Number of children: 3 Number of grandchildren: 5 Highest education level completed: Associate Degree: Occupational, Technical, Vocational Program Education level details: [employer], 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) Known or Potential Exposure: None Current occupational status: disabled Pets and animals: Yes Pets & animals: cat(s), dog(s) and guinea pig(s) Leisure activites: art and volunteer work Sexually active: No Do you think of yourself as: Straight/Heterosexual Current gender identity: Female Shraon/Roman Catholic: Mormon Special sharon needs: No Agree to transfusion: Yes Financial difficulty paying for basics: Not Very Hard Female Reproductive History: Para: 3 Spontaneous abortions: Yes Physical Exam Const: COMMON NORMALS: patient oriented x3, no limitations and alert GENERAL APPEARANCE: anxious NUTRITIONAL APPEARANCE: thin ORIENTATION/CONSCIOUSNESS: Yes awake, Yes oriented to person, Yes oriented to place and Yes oriented to time OTHER: patient is extremely anxious and labile HENMT: COMMON NORMALS: normocephalic and atraumatic HEAD & SCALP: normal to inspection, normocephalic and atraumatic FACE & SINUS: normal facial exam Eye: GENERAL EYE: appearance normal, both eyes and all related structures and normal light reflex DIRECT OPHTHALMOSCOPY: Yes normal light reflex Neck/C-Spine: COMMON NORMALS: full ROM, no lymphadenopathy, no meningeal signs and Thyroid normal THYROID: Thyroid normal Chest: COMMONS NORMALS: normal inspection of the chest and normal palpation of entire chest wall Resp: COMMON NORMALS: normal respiratory effort and clear to auscultation bilaterally AUSCULTATION: clear to auscultation bilaterally Cardio: COMMON NORMALS: regular rate and regular rhythm RATE: regular rate RHYTHM: regular rhythm GI: COMMON NORMALS: Normal to inspection, nondistended, normoactive bowel sounds present, Soft to palpation and non-tender PALPATION: Yes Soft to palpation : COMMON NORMALS: Yes no CVA tenderness BLADDER/KIDNEY EXAM: Yes no CVA tenderness Back/Pelvis: COMMON NORMALS: no CVA tenderness Extremity: COMMON NORMALS: normal to inspection GENERAL: Yes normal exam except as noted Neuro: RICCO COMA SCALE: document GCS findings [place] coma scale eye opening: Spontaneous [place] coma scale verbal response: Orientated [place] coma scale motor response: Obey commands [place] coma scale total score: 15 COMMON NORMALS: patient oriented x3, CN's II-XII intact bilaterally, moves all extremities, no focal motor deficits, no sensory deficits noted and gait normal SENSORIUM/ORIENTATION: Yes alert, Yes oriented to person, Yes oriented to place and Yes oriented to time MENINGEAL SIGNS: Yes no meningeal signs SPEECH: speech normal GAIT: Yes Normal gait present MOTOR EXAM: 5/5 motor strength present throughout Skin: COMMON NORMALS: no rashes or lesions noted GENERAL SKIN EXAM: no rashes or lesions noted Course Vital Signs: Vital signs: Vital Signs Temperature 98.8 F 12/17/22 07:39 Pulse Rate 67 12/17/22 09:00 Respiratory Rate 14 12/17/22 09:00 Blood Pressure 114/78 12/17/22 09:19 Pulse Oximetry 98 12/17/22 09:00 Oxygen Delivery Me thod Room Air 12/17/22 07:39 MDM - General Adult Medical Decision Making I think patient's symptoms are multifactorial. Certainly her baseline anxiet y/current situation with family could be contributing. She is out of her Xanex. She ran out of the Xanex and her Abilify medication 2 weeks ago as it did not come in her mail order. Symptoms of stopping these meds abruptly can include agitation, anxiety, irritability, restlessness, etc. She has also been out of her Amiodarone so she could be having paroxysmal atrial fibrillation episodes. She arrives to the ED initially hypertensive but this resolved without intervention. Blood work overall is fairly unremarkable. UA looks suspicious for infection with 2+ blood, positive nitrates, leuks, 15-25 WBCs, and 2+ bacteria. Will culture and place on antibiotics. Patient is stable for discharge from the emergency department. She will be provided refills of her medications. Recommend follow-up with her primary care provider later this week. Return to ED precautions given. Lab Data 12/17/22 07:56 12/17/22 07:56 Laboratory Results WBC 4.61 10^3/uL (3.29-11.43) 12/17/22 07:56 RBC 5.17 10^6/uL (3.85-5.65) 12/17/22 07:56 Hgb 16.20 g/dL (11.27-16.99) 12/17/22 07:56 Hct 45.9 % (36-47) 12/17/22 07:56 MCV 88.8 fl (85-98) 12/17/22 07:56 MCH 31.3 pg (27-33) 12/17/22 07:56 MCHC 35.3 g/dL (30-55) 12/17/22 07:56 RDW 12.2 % (12.1-15.1) 12/17/22 07:56 Plt Count 202 10^3/cmm (157-399) 12/17/22 07:56 MPV 11.6 fL (7.4-10.4) H 12/17/22 07:56 Neut % (Auto) 61.0 % 12/17/22 07:56 Lymph % (Auto) 29.9 % 12/17/22 07:56 [place] % (Auto) 6.5 % 12/17/22 07:56 Eos % (Auto) 1.7 % 12/17/22 07:56 Baso % (Auto) 0.9 % 12/17/22 07:56 Neut # (Auto) 2.81 10^3/uL (1.8-7.7) 12/17/22 07:56 Lymph # (Auto) 1.4 10^3/uL (0.8-4.8) 12/17/22 07:56 [place] # (Auto) 0.3 10^3/uL (0.2-0.9) 12/17/22 07:56 Eos # (Auto) 0.1 10^3/uL (0.0-0.8) 12/17/22 07:56 Baso # (Auto) 0.0 10^3/uL (0.0-0.1) 12/17/22 07:56 Nucleated RBC % (auto) 0 % 12/17/22 07:56 Nucleated RBCs # 0.0 /100WBC 12/17/22 07:56 Sodium 138 mmol/L (136-145) 12/17/22 07:56 Potassium 3.3 mmol/L (3.5-5.1) L 12/17/22 07:56 Chloride 98 mmol/L (98-107) 12/17/22 07:56 Carbon Dioxide 29 mmol/L (22-29) 12/17/22 07:56 Anion Gap 14.3 (5-19) 12/17/22 07:56 BUN 7 mg/dL (8-23) L 12/17/22 07:56 Creatinine 0.8 mg/dL (0.5-0.9) 12/17/22 07:56 GFR Calculation 72.0 mL/min (90-130) L 12/17/22 07:56 Glucose 114 mg/dL (65-115) 12/17/22 07:56 Calculated Osmolality 285 mOsm/kg (285-295) 12/17/22 07:56 Calcium 9.7 mg/dL (8.5-10.5) 12/17/22 07:56 Total Bilirubin 0.6 mg/dL (0.15-1.2) 12/17/22 07:56 AST 17 U/L (0-32) 12/17/22 07:56 ALT 8 U/L (0-33) 12/17/22 07:56 Alkaline Phosphatase 98 U/L (35-105) 12/17/22 07:56 Total Protein 7.8 g/dL (6.6-8.7) 12/17/22 07:56 Albumin 4.8 g/dL (3.5-5.2) 12/17/22 07:56 Globulin 3.0 g/dL (1.3-4.6) 12/17/22 07:56 TSH 4.81 uIU/mL (0.27-4.20) H 12/17/22 07:56 Urine Color Yellow (Yellow) 12/17/22 07:44 Urine Appearance Hazy (CLEAR) A 12/17/22 07:44 Urine pH 6 (5-7) 12/17/22 07:44 Ur Specific [place] 1.015 (1.005-1.030) 12/17/22 07:44 Urine Protein Neg (Negative) 12/17/22 07:44 Urine Glucose (UA) Norm (Normal) 12/17/22 07:44 Urine Ketones 1+ (Negative) H 12/17/22 07:44 Urine Blood 2+ (Negative) H 12/17/22 07:44 Urine Nitrate Positive (Negative) H 12/17/22 07:44 Urine Bilirubin 1+ (Negative) H 12/17/22 07:44 Urine Urobilinogen 1 mg/dL (Negative) H 12/17/22 07:44 Ur Leukocyte Esterase Trace (Negative) H 12/17/22 07:44 Urine RBC 0-4 /hpf (0-2) H 12/17/22 07:44 Urine WBC 15-25 /hpf (0-5) H 12/17/22 07:44 Ur Squamous Epith Cells 5-10 /hpf (0-5) H 12/17/22 07:44 Amorphous Sediment Not Reportable 12/17/22 07:44 Urine Bacteria 2+ /hpf (NONE) H 12/17/22 07:44 Urine Mucus 1+ /hpf 12/17/22 07:44 Discharge Plan Discharge Patient Disposition: Home Clinical Impression: Anxiety, Has run out of medications Acute cystitis Qualifiers: Hematuria presence: with hematuria Qualified Code(s): N30.01 - Acute cystitis with hematuria Condition: Stable Prescriptions: New cephalexin 500 mg capsule 500 mg PO Q6H 7 Days Qty: 28 0RF Continued amiodarone 200 mg tablet 200 mg PO DAILY Qty: 30 0RF alprazolam 0.5 mg tablet 0.5 mg PO BID PRN (Reason: anxiety) Qty: 20 0RF Changed Abilify 5 mg tablet 5 mg PO QAM Qty: 30 0RF No Action venlafaxine [Effexor XR] 75 mg capsule,extended release 24hr 75 mg PO QAM Qty: 90 2RF metoprolol tartrate 25 mg tablet 25 mg PO QAM atorvastatin 20 mg tablet 20 mg PO QAM trazodone 150 mg tablet 150 mg PO BEDTIME PRN (Reason: sleep) Rx Instructions: Take one tab at bedtime as needed for sleep may take half tablet prior 2 am if not asleep. gabapentin 300 mg capsule 300 mg PO BEDTIME hydrochlorothiazide 25 mg tablet 25 mg PO QAM oxybutynin chloride 5 mg tablet 5 mg PO QAM Eliquis 5 mg tablet 5 mg PO BID Discharge Orders: Discharge ED (Routine); Ordered 12/17/22 Ordered By: Riri Harden Referrals: Genie Vences DO [Primary Care Provider] - Activity Restrictions/Additional Instructions: As we discussed I would like you to follow-up with your primary care provider at the end of the week for further evaluation. You may keep a blood pressure log to discuss with her on your next visit. Return to the emergency department for chest pain, severe shortness of breath or difficulty breathing, palpitations or feeling like your heart is racing, lightheadedness/dizziness or any other concerns you may have. As we discussed your urine analysis suspicious for a urinary tract infection. We are placing you on antibiotics for this. You need to return to the emergency department for severe abdominal or flank pain, fevers, repetitive episodes of vomiting, or any other concerns you may have. I hope you begin to feel better soon. Coding Level of Care Code ED President And Chief Commercial Officer for Tayo Thorne
[2022-12-17] MEDS: ALPRAZolam 0.5 mg Tablet PO (08:09)
[2022-12-17 08:10] LABS: Basophils % 0.9 %; Eosinophils # 0.1 10^3/uL (0.0-0.8); Eosinophils % 1.7 %; Hematocrit 45.9 % (36-47); Lymphocytes # 1.4 10^3/uL (0.8-4.8); Lymphocytes % 29.9 %; Mean Corpuscular HGB Conc 35.3 g/dL (30-55); Mean Corpuscular Hemoglobin 31.3 pg (27-33); Mean Corpuscular Volume 88.8 fl (85-98); Mean Platelet Volume 11.6 fL (7.4-10.4); Monocytes # 0.3 10^3/uL (0.2-0.9); Monocytes % 6.5 %; Neutrophils # 2.81 10^3/uL (1.8-7.7); Nucleated Red Blood Cells % 0 %; Platelet Count 202 10^3/cmm (157-399); Red Blood Count 5.17 10^6/uL (3.85-5.65); Red Cell Distribution Width 12.2 % (12.1-15.1); White Blood Count 4.61 10^3/uL (3.29-11.43)
[2022-12-17 08:17] LABS: Add Urine Microscopic? YES; Bilirubin Urine 1+ (Negative); Blood Urine 2+ (Negative); Glucose Urine UA Norm (Normal); Ketones Urine 1+ (Negative); Leukocyte Esterase Urine Trace (Negative); Nitrate Urine Positive (Negative); Protein Urine Neg (Negative); Specific Gravity, Urine 1.015 (1.005-1.030); Urine Appearance Hazy (CLEAR); Urine Color Yellow (Yellow); Urobilinogen Urine 1 mg/dL (Negative); pH Urine 6 (5-7)
--- NOTE | 2022-12-17 08:18 | PC.PHAR ---
pt states she takes care of her own medications-pt states she has been out of alprazolam 0.5mg bid prn ext shows last filled 03/19/22 30d/s pt states out for 2 weeks ago amborse is closed to verify when last filled-pt states she is also out of her abilify 5mg qam and pacerone 200mg daily ext shows last filled 05/09/22 90d/s states been out for 2 weeks-pt states she takes metoprolol tartrate 25mg qam rx written 01/10/22 25mg bid-on hold with [facility] [phone] trying to verify when last filled-pt states she also takes oxybutynin 5mg qam rx written 07/09/22 5mg bid-notes are made in the pharmacy comments-still on hold with with [facility] trying to verify
[2022-12-17 08:23] LABS: Bacteria Urine 2+ /hpf; Mucus Urine 1+ /hpf; RBC Urine 0-4 /hpf (0-2); WBC Urine 15-25 /hpf (0-5)
[2022-12-17 08:24] LABS: Add Urine Culture? Yes
[2022-12-17 08:48] LABS: Alanine Aminotransferase 8 U/L (0-33); Albumin Level 4.8 g/dL (3.5-5.2); Alkaline Phosphatase 98 U/L (35-105); Anion Gap 14.3 (5-19); Aspartate Amino Transferase 17 U/L (0-32); Blood Urea Nitrogen 7 mg/dL (8-23); Calcium 9.7 mg/dL (8.5-10.5); Carbon Dioxide 29 mmol/L (22-29); Chloride 98 mmol/L (98-107); Glucose 114 mg/dL (65-115); Osmolality Calculated 285 mOsm/kg (285-295); Potassium 3.3 mmol/L (3.5-5.1); Sodium 138 mmol/L (136-145); Thyroid Stimulating Hormone 4.81 uIU/mL (0.27-4.20); Total Bilirubin 0.6 mg/dL (0.15-1.2); Total Protein 7.8 g/dL (6.6-8.7)
== END 2022-12-17 09:20 | disposition home or self-care (01) ==
PROVIDERS: Emergency Provider Physician Assistant; PCP Family Medicine
DX: N30.01 Acute cystitis with hematuria (principal); F41.9 Anxiety disorder, unspecified; Z76.0 Encounter for issue of repeat prescription; Z79.01 Long term (current) use of anticoagulants; Z87.891 Personal history of nicotine dependence
CPT/HCPCS: 71045; 80053; 81001; 84443; 85025; 87077; 87086; 87186; 93005; 99285

== ENCOUNTER → 2023-01-17 14:32 | Outpatient (BNVA) | payer MEDICARE, MEDICAID, SELFPAY ==
[2020-07-05 09:54] VITALS: BP 123/86; BMI 20.9
== END ==
PROVIDERS: PCP Family Medicine; Visit Provider Family Medicine
DX: I10 Essential (primary) hypertension (principal); I48.92 Unspecified atrial flutter; N39.41 Urge incontinence; E78.5 Hyperlipidemia, unspecified
CPT/HCPCS: 80053; 80061; 84439; 84443

== ENCOUNTER → 2023-01-21 13:35 | Outpatient (BNVA) | payer MEDICARE, MEDICAID, SELFPAY ==
[2020-07-05 09:54] VITALS: BP 123/86; BMI 20.9
== END ==
PROVIDERS: PCP Family Medicine; Visit Provider Internal Medicine Cardiovascular Disease
DX: I48.92 Unspecified atrial flutter (principal); Z79.01 Long term (current) use of anticoagulants; I10 Essential (primary) hypertension; I51.3 Intracardiac thrombosis, not elsewhere classified; F17.210 Nicotine dependence, cigarettes, uncomplicated
CPT/HCPCS: 99214

== ENCOUNTER 2023-02-20 09:58 | Outpatient (CLI) | payer MEDICARE, OTHER, SELFPAY ==
[2020-07-05 09:54] VITALS: BP 123/86; BMI 20.9
--- NOTE | 2023-02-20 10:11 | MM_ITS ---
WS: [id number] VIEWS: MLO and CC views both breasts. 3D digital tomosynthesis is also included in this exam. Comparison made with prior exam of 08/12/2016, 08/21/2017, 09/11/2017, 09/30/2018 and 10/20/2019. Findings: There was no sign of mass, architectural distortion or suspicious calcification in either breast. The re are scattered areas of fibroglandular density Impression: MM/[place] [id number] BI-RADS: 2-Benign finding. FOLLOW-UP: 1 Year Follow-up This mammogram was also analyzed by the Computer Aided Detection System R2 Imag e Printed Products Assembler.
== END 2023-02-20 09:59 | disposition home or self-care (01) ==
LOC: RAD 09:59
PROVIDERS: PCP Family Medicine; Visit Provider Family Medicine
DX: Z12.31 Encounter for screening mammogram for malignant neoplasm of breast (principal)
CPT/HCPCS: 77063; 77067

== ENCOUNTER 2023-02-20 11:03 | Outpatient (CLI) | payer MEDICARE, OTHER, SELFPAY ==
[2020-07-05 09:54] VITALS: BP 123/86; BMI 20.9
[2023-02-20 12:15] LABS: Estmated Average Glucose 108; Hemoglobin A1C 5.4 % (4.0-6.0)
== END 2023-02-20 11:04 | disposition home or self-care (01) ==
LOC: LAB 11:06
PROVIDERS: PCP Family Medicine; Visit Provider Nurse Practitioner Psychiatric/Mental Health
DX: Z79.899 Other long term (current) drug therapy (principal)
CPT/HCPCS: 36415; 83036

== ENCOUNTER 2023-04-13 11:58 | Emergency (ER) | payer MEDICARE, MEDICAID, SELFPAY ==
[2020-07-05 09:54] VITALS: BP 123/86; BMI 20.9
--- NOTE | 2023-04-13 12:02 | XRR_ITS ---
PROCEDURE INFORMATION: Exam: XR Left Hand Exam date and time: 04/13/2023 12:14 PM Age: 67 years old Clinical indication: Injury or trauma; Other: Dropped something on the 3rd digit; Blunt trauma (contusions or hematomas); Left; Middle finger; Additional info: Pain TECHNIQUE: Imaging protocol: Radiologic exam of the left hand. Views: 3 or more views. COMPARISON: No relevant prior studies available. FINDINGS: Bones/joints: Punctate calcified density along the ulnar aspect of the 3rd digit distal interphalangeal joint may represent benign soft tissue calcifications. A tiny fracture fragment cannot be excluded. Multi-articular primary osteoarthritic changes including joint space narrowing, subchondral cystic/sclerotic changes, and marginal osteophyte formations. There is a hairline nondisplaced oblique fracture through the base of the 3rd digit distal phalanx with adjacent soft tissue hematoma. Soft tissues: See Bones/joints finding. XR/XR hand LT min 3V* [id number] IMPRESSION: There is a hairline nondisplaced oblique fracture through the base of the 3rd digit distal phalanx with adjacent soft tissue hematoma.
[2023-04-13 12:05] VITALS: BP 171/103; PULSE 95; RESP 14; TEMP 36.7; O2SAT 96; BMI 21.7
--- NOTE | 2023-04-13 12:53 | ED_ITS ---
HPI - Extremity Problem 2 General: Chief complaint: Extremity Injury, Upper Stated complaint: left middle finger injury Time Seen by Provider: 04/13/23 12:38 History of Present Illness: 67-year-old female presents emerged part with complaints of swelling and pain to her left third digit. She states approximately 1 month ago she injured it by getting stuck by thorns. She states she did remove the thorns herself with a needle at that time. She states that the digit continued to swell initially but then started getting better. She states that approximately 4 days ago she accidentally dropped a heavy box on her finger causing it to be significantly swollen with redness throughout the entire digit. She states the pain has become much worse over the last 24 hours and is currently a throbbing 10 out of 10 pain. She states there is serosanguineous drainage from the wound on the dorsal aspect of the third digit that was initially healing. She states there is significant pain that is worse with any attempts at flexion. She denies numbness or tingling to the extremity. Review of Systems 2 General: Reports: 10 or more systems reviewed and unremarkable except in HPI and below Musc: Reports: extremity pain, extremity swelling, joint pain, joint redness and joint warmth Skin/Breast: Reports: new lesions (Left third digit dorsal aspect) PFS ED 2 PFSH: Medical History Smoking addiction Psychiatric care Chronic low back pain with sciatica Benign essential HTN Enrolled in chronic care management Bereavement Chronic post-traumatic stress disorder Generalized anxiety disorder Major depressive disorder, recurrent severe without psychotic features Surgical History History of open heart surgery History of ear surgery History of back surgery H/O total hysterectomy No pertinent past surgical history Family History Father Heart disease Grandmother Cancer Brother Hepatitis B Other CAD (coronary artery disease) Diabetes Hyperlipidemia Hypertension Psychiatric illness Social History Smoking and tobacco/nicotine status: former use of tobacco/nicotine Quit status (tobacco/nicotine): has tried quititng Number of times tried to quit tobacco: 1 Second hand smoke exposure: Yes Alcohol intake: former Year of sobriety/quit date alcohol: 2019 Substance/Drug Use: former Date of last use: 1998 Adopted: No Caregiver/support person: No Lives independently: Yes Household members: family Housing: House Marital status: / Number of children: 3 Number of grandchildren: 5 Highest education level completed: Associate Degree: Occupational, Technical, Vocational Program 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, 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: Medically Discharged/Retired branch: [employer] Assignments: Inside [facility] ([facility]) Known or Potential Exposure: None Current occupational status: disabled Pets and animals: Yes Pets & animals: cat(s), dog(s) and guinea pig(s) Leisure activites: art and volunteer work Sexually active: No Do you think of yourself as: Straight/Heterosexual Current gender identity: Female Sharon/Yazidism: Anglican Special sharon needs: No Agree to transfusion: Yes Female Reproductive History: Para: 3 Spontaneous abortions: Yes Physical Exam 2 Narrative: EXAM NARRATIVE: Constitutional: the patient appears well nourished and of normal development. Vital signs as documented. No acute distress at present. Alert and oriented-to person, place, time and situation. Head, eyes, ears, nose, mouth, throat: Normocephalic, atraumatic. Pupils-equal, round, reactive to light. No scleral icterus. Normal-appearing external ears. Normal appearing nasal turbinates, no drainage. No obvious oral lesions, posterior oropharynx without erythema or exudates. Neck: Supple, trachea is midline, no lymphadenopathy, no jugular venous distension, thyromegaly, or carotid bruits. Carotid upstrokes are brisk bilaterally. Lungs: clear to auscultation to all lung jacques. Symmetrical rise and fall of chest, no obvious signs of increased work of breathing at present. Cardiac: Regular rate and rhythm, positive S1, S2. No murmurs, rubs or gallops that I can appreciate Abdomen: Soft, non-tender to palpation, normal active bowel sounds to all quadrants. No palpable masses, no organomegaly and abdominal bruits. Extremities: 2+ pulses in the upper extremities that are equal bilaterally, 2+ pulses in the lower extremities that are equal bilaterally. Left third digit with significant erythema and edema. Moves all extremities well, sensation to all extremities are noted. Skin: Warm, dry, area of disruption to the dorsal aspect of the left third digit with active drainage. Course 2 Vital Signs: Vital signs: Vital Signs Temperature 98.0 F 04/13/23 12:05 Pulse Rate 80 04/13/23 13:42 Respiratory Rate 16 04/13/23 13:42 Blood Pressure 155/101 04/13/23 13:42 Pulse Oximetry 98 04/13/23 13:42 Oxygen Delivery Me thod Room Air 04/13/23 13:42 MDM - Extremity (Nontraumatic) Medical Decision Making Physical exam completed and documented, I will obtain laboratory evaluation to include a CBC, CMP, ESR and CRP as well as an x-ray initially to evaluate for fracture. Given the patient's presentation and increased pain I am concerned for ligament involvement I will obtain a CT scan with IV contrast to rule out abscess and determine extent of the patient's infection. I did contact the orthopedic physician Dr. Arriaza and given the complexity of this case he has requested that I transfer the patient. I contacted the orthopedic physician Dr. Evans at the [facility] who accepted the patient for ER to ER transfer. Medical Records I reviewed the patient's medical records. Lab Data I reviewed the patient's lab results. 04/13/23 13:28 04/13/23 13:28 Radiology Impressions Hand X-Ray 04/13/23 12:02 IMPRESSION: There is a hairline nondisplaced oblique fracture through the base of the 3rd digit distal phalanx with adjacent soft tissue hematoma. Hand CT 04/13/23 15:41 IMPRESSION: 1. There is a hairline oblique fracture through the dorsal radial aspect of the base of the 3rd digit distal phalanx. 2. There is thickening and heterogeneous density/enhancement in the soft tissues surrounding the 3rd digit distal phalanx consistent with hematoma and/or cellulitis. No large discrete abscess formation is seen. Laboratory Results WBC 10.28 10^3/uL (3.29-11.43) 04/13/23 13:28 RBC 4.31 10^6/uL (3.85-5.65) 04/13/23 13:28 Hgb 13.60 g/dL (11.27-16.99) 04/13/23 13:28 Hct 41.0 % (36-47) 04/13/23 13:28 MCV 95.1 fl (85-98) 04/13/23 13:28 MCH 31.6 pg (27-33) 04/13/23 13:28 MCHC 33.2 g/dL (30-55) 04/13/23 13:28 RDW 13.1 % (12.1-15.1) 04/13/23 13:28 Plt Count 178 10^3/cmm (157-399) 04/13/23 13:28 MPV 11.8 fL (7.4-10.4) H 04/13/23 13:28 Neut % (Auto) 79.2 % 04/13/23 13:28 Lymph % (Auto) 11.8 % 04/13/23 13:28 Humphreys % (Auto) 7.6 % 04/13/23 13:28 Eos % (Auto) 0.6 % 04/13/23 13:28 Baso % (Auto) 0.5 % 04/13/23 13:28 Neut # (Auto) 8.15 10^3/uL (1.8-7.7) H 04/13/23 13:28 Lymph # (Auto) 1.2 10^3/uL (0.8-4.8) 04/13/23 13:28 Humphreys # (Auto) 0.8 10^3/uL (0.2-0.9) 04/13/23 13:28 Eos # (Auto) 0.1 10^3/uL (0.0-0.8) 04/13/23 13:28 Baso # (Auto) 0.1 10^3/uL (0.0-0.1) 04/13/23 13:28 Nucleated RBC % (auto) 0 % 04/13/23 13:28 Nucleated RBCs # 0.0 /100WBC 04/13/23 13:28 ESR 55 mm/hr (0-15) H 04/13/23 13:28 Sodium 135 mmol/L (136-145) L 04/13/23 13:28 Potassium 3.7 mmol/L (3.5-5.1) 04/13/23 13:28 Chloride 101 mmol/L (98-107) 04/13/23 13:28 Carbon Dioxide 22 mmol/L (22-29) 04/13/23 13:28 Anion Gap 15.7 (5-19) 04/13/23 13:28 BUN 11 mg/dL (8-23) 04/13/23 13:28 Creatinine 0.7 mg/dL (0.5-0.9) 04/13/23 13:28 GFR Calculation 84.0 mL/min (90-130) L 04/13/23 13:28 Glucose 97 mg/dL (65-115) 04/13/23 13:28 Calculated Osmolality 279 mOsm/kg (285-295) L 04/13/23 13:28 Lactic Acid 0.8 mmol/L (0.5-2.2) 04/13/23 13:28 Calcium 9.4 mg/dL (8.5-10.5) 04/13/23 13:28 Total Bilirubin 0.4 mg/dL (0.15-1.2) 04/13/23 13:28 AST 50 U/L (0-32) H 04/13/23 13:28 ALT 43 U/L (0-33) H 04/13/23 13:28 Alkaline Phosphatase 153 U/L (35-105) H 04/13/23 13:28 C-Reactive Protein 159.8 mg/L (0.0-4.9) H 04/13/23 13:28 Total Protein 7.4 g/dL (6.6-8.7) 04/13/23 13:28 Albumin 3.8 g/dL (3.5-5.2) 04/13/23 13:28 Globulin 3.6 g/dL (1.3-4.6) 04/13/23 13:28 Procalcitonin 0.12 ng/mL (0-0.5) 04/13/23 13:28 All radiology interpretation(s) finalized by discharge Discharge Plan Discharge Patient Disposition: Xfer Short-Term Hosp Clinical Impression: Fracture of distal phalanx of finger of left hand Cellulitis of middle finger Qualifiers: Laterality: left Qualified Code(s): L03.012 - Cellulitis of left finger Condition: Stable Referrals: Genie Vences DO [Primary Care Provider] - Patient Instructions: Opioid Safety, Pain Management Coding Level of Care Code ED Registered Client Associate for Tayo Thorne
[2023-04-13] MEDS: ondansetron 2 mg/ML SDV 2 mL 4 MG IVP (13:32)
[2023-04-13] MEDS: cefTRIAXone 1,000 MG in sodium chloride 0.9% (plus) 50 ML 100 MG IV (13:32)
[2023-04-13] MEDS: fentaNYL 50 mcg/mL INJ 2mL IVP ×3 (13:38→18:24)
[2023-04-13 13:42] VITALS: BP 155/101; PULSE 80; RESP 16; O2SAT 98
[2023-04-13 13:44] LABS: Basophils # 0.1 10^3/uL (0.0-0.1); Basophils % 0.5 %; Eosinophils # 0.1 10^3/uL (0.0-0.8); Eosinophils % 0.6 %; Lymphocytes # 1.2 10^3/uL (0.8-4.8); Lymphocytes % 11.8 %; Mean Corpuscular HGB Conc 33.2 g/dL (30-55); Mean Corpuscular Hemoglobin 31.6 pg (27-33); Mean Corpuscular Volume 95.1 fl (85-98); Mean Platelet Volume 11.8 fL (7.4-10.4); Monocytes # 0.8 10^3/uL (0.2-0.9); Monocytes % 7.6 %; Neutrophils # 8.15 10^3/uL (1.8-7.7); Neutrophils % 79.2 %; Nucleated Red Blood Cells % 0 %; Platelet Count 178 10^3/cmm (157-399); Red Blood Count 4.31 10^6/uL (3.85-5.65); Red Cell Distribution Width 13.1 % (12.1-15.1); White Blood Count 10.28 10^3/uL (3.29-11.43)
[2023-04-13 13:51] LABS: Erythrocyte Sedimentation Rate 55 mm/hr (0-15)
[2023-04-13 14:02] LABS: Lactic Sepsis W/Reflex 0.8 mmol/L (0.5-2.2)
[2023-04-13 14:03] LABS: Alanine Aminotransferase 43 U/L (0-33); Albumin Level 3.8 g/dL (3.5-5.2); Alkaline Phosphatase 153 U/L (35-105); Anion Gap 15.7 (5-19); Aspartate Amino Transferase 50 U/L (0-32); Blood Urea Nitrogen 11 mg/dL (8-23); C Reactive Protein 159.8 mg/L (0.0-4.9); Calcium 9.4 mg/dL (8.5-10.5); Carbon Dioxide 22 mmol/L (22-29); Chloride 101 mmol/L (98-107); Globulin 3.6 g/dL (1.3-4.6); Glucose 97 mg/dL (65-115); Osmolality Calculated 279 mOsm/kg (285-295); Potassium 3.7 mmol/L (3.5-5.1); Sodium 135 mmol/L (136-145); Total Bilirubin 0.4 mg/dL (0.15-1.2); Total Protein 7.4 g/dL (6.6-8.7)
[2023-04-13 14:09] LABS: Procalcitonin 0.12 ng/mL (0-0.5)
--- NOTE | 2023-04-13 15:41 | CTR_ITS ---
PROCEDURE INFORMATION: Exam: CT Left Upper Extremity With Contrast, Hand Exam date and time: 04/13/2023 3:46 PM Age: 67 years old Clinical indication: Swelling; Fingers; Left; Additional info: Infection TECHNIQUE: Imaging protocol: Computed tomography of the left upper extremity with contrast. Exam focused on the hand. Radiation optimization: All CT scans at this facility use at least one of these dose optimization techniques: automated exposure control; mA and/or kV adjustment per patient size (includes targeted exams where dose is matched to clinical indication); or iterative reconstruction. Contrast material: OMNI 350; Contrast volume: 80 ml; Contrast route: INTRAVENOUS (IV); COMPARISON: CR (UP EXM, ) 04/13/2023 12:14 PM RADIATION DOSE METRICS: Total DLP (mGy-cm): 122.88 FINDINGS: Bones/joints: Multi articular [id number] joint space narrowing, small marginal osteophyte formations, and minimal subchondral cystic changes. Soft tissues: There is a hairline oblique fracture through the dorsal radial aspect of the base of the 3rd digit distal phalanx. There is thickening and heterogeneous density/enhancement in the soft tissues surrounding the 3rd digit distal phalanx consistent with hematoma and/or cellulitis. No large discrete abscess formation is seen. CT/CT hand LT w con [id number] IMPRESSION: 1. There is a hairline oblique fracture through the dorsal radial aspect of the base of the 3rd digit distal phalanx. 2. There is thickening and heterogeneous density/enhancement in the soft tissues surrounding the 3rd digit distal phalanx consistent with hematoma and/or cellulitis. No large discrete abscess formation is seen.
[2023-04-13] MEDS: iohexol 350 mg/mL 500 mL Btl (per mL) IV (15:52)
[2023-04-13 17:00] VITALS: RESP 18
[2023-04-13] MEDS: tetanus-dipt-pertussis 0.5 mL SDV IM (17:04)
[2023-04-13] MEDS: lactated ringers 1,000 ML 100 ML IV (17:07)
[2023-04-13] MEDS: hyDRALAzine 20 mg/mL INJ 1 mL IVP (17:35)
[2023-04-13 18:28] VITALS: BP 177/107; PULSE 80; RESP 18; TEMP 36.8; O2SAT 98
== END 2023-04-13 18:31 | disposition short-term general hospital (02) ==
PROVIDERS: Emergency Provider Internal Medicine; PCP Family Medicine
DX: S62.663A Nondisplaced fracture of distal phalanx of left middle finger, initial encounter for closed fracture (principal); L03.012 Cellulitis of left finger; Z87.891 Personal history of nicotine dependence; I10 Essential (primary) hypertension; W20.8XXA Other cause of strike by thrown, projected or falling object, initial encounter; Z23 Encounter for immunization
CPT/HCPCS: 73130; 73201; 80053; 83605; 84145; 85025; 85651; 86140; 87040; 90471; 90715; 96374; 96375; 96376; 99285; J0360; J0696; J2405; J3010; J7120; Q9967

== ENCOUNTER 2023-04-28 12:34 | Emergency (ER) | payer MEDICARE, MEDICAID, SELFPAY ==
[2020-07-05 09:54] VITALS: BP 123/86; BMI 20.9
[2023-04-28 12:49] VITALS: BP 157/99; PULSE 101; RESP 17; TEMP 37.1; O2SAT 91; BMI 21.7
--- NOTE | 2023-04-28 13:32 | XR_ITS ---
WS: [id number] XR hand LT min 3V* [id number] REASON FOR EXAM: pain FINDINGS: Compared to the previous examination of 04/13/2023, the fracture of the lateral base of the distal phal anx of the third finger is more evident. Small fracture fragment more displaced proximally. Fracture line extends into the joint space. IMPRESSION: Evolving fracture of the middle finger as above.
--- NOTE | 2023-04-28 13:42 | ED_ITS ---
HPI - Extremity Problem General: Chief complaint: Extremity Injury, Upper Stated complaint: left middle finger pain Time Seen by Provider: 04/28/23 13:32 Source: patient Mode of arrival: ambulatory History of Present Illness: MD Complaint: extremity pain Onset (ago): minute(s) Pain Consistency: constant Location: left Relieving factors: nothing Exacerbating factors: nothing Associated symptoms: Deny arthralgias, chest pain, fever(s), myalgias, rash or s hort of breath Review of Systems Const: Denies: fever(s) or chills Card: Denies: chest pain Resp: Denies: dyspnea GI: Denies: abdominal pain : Denies: dysuria, urinary frequency or urinary urgency Musc: Denies: neck pain or back pain Skin/Breast: Denies: rash PFSH ED PFSH: Medical History Smoking addiction Psychiatric care Chronic low back pain with sciatica Benign essential HTN Enrolled in chronic care management Bereavement Chronic post-traumatic stress disorder Generalized anxiety disorder Major depressive disorder, recurrent severe without psychotic features Surgical History History of open heart surgery History of ear surgery History of back surgery H/O total hysterectomy No pertinent past surgical history Family History Father Heart disease Grandmother Cancer Brother Hepatitis B Other CAD (coronary artery disease) Diabetes Hyperlipidemia Hypertension Psychiatric illness Social History Smoking and tobacco/nicotine status: former use of tobacco/nicotine Quit status (tobacco/nicotine): has tried quititng Number of times tried to quit tobacco: 1 Second hand smoke exposure: Yes Alcohol intake: former Year of sobriety/quit date alcohol: 2019 Substance/Drug Use: former Date of last use: 1998 Adopted: No Caregiver/support person: No Lives independently: Yes Household members: family Housing: House Marital status: / Number of children: 3 Number of grandchildren: 5 Highest education level completed: Associate Degree: Occupational, Technical, Vocational Program 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, 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 [employer]) status: Medically Discharged/Retired branch: [employer] Assignments: Inside [facility] ([facility]) Known or Potential Exposure: None Current occupational status: disabled Pets and animals: Yes Pets & animals: cat(s), dog(s) and guinea pig(s) Leisure activites: art and volunteer work Sexually active: No Do you think of yourself as: Straight/Heterosexual Current gender identity: Female Sharon/Oriental Orthodox: Samaritan Special sharon needs: No Agree to transfusion: Yes Female Reproductive History: Para: 3 Spontaneous abortions: Yes Physical Exam Const: COMMON NORMALS: no acute distress GENERAL APPEARANCE: cooperative and comfortable ORIENTATION/CONSCIOUSNESS: Yes awake, Yes oriented to person, Yes oriented to place and Yes oriented to time HENMT: COMMON NORMALS: normocephalic, atraumatic and hearing grossly normal bilaterally HEAD & SCALP: normocephalic and atraumatic Resp: COMMON NORMALS: normal respiratory effort, No retractions, No use of accessory muscles and clear to auscultation bilaterally AUSCULTATION: clear to auscultation bilaterally Cardio: COMMON NORMALS: regular rate, regular rhythm and No murmurs present (Cardio) RATE: regular rate RHYTHM: regular rhythm Extremity: COMMON NORMALS: normal to inspection, capillary refill normal, no clubbing, cyanosis or edema, no calf tenderness and no pedal edema Neuro: SENSORIUM/ORIENTATION: Yes oriented to person, Yes oriented to place and Yes oriented to time Skin: COMMON NORMALS: no rashes or lesions noted GENERAL SKIN EXAM: no rashes or lesions noted Course 2 Vital Signs: Vital signs: Vital Signs Temperature 98.7 F 04/28/23 12:49 Pulse Rate 101 H 04/28/23 12:49 Respiratory Rate 17 04/28/23 12:49 Blood Pressure 157/99 04/28/23 12:49 Pulse Oximetry 91 04/28/23 12:49 Oxygen Delivery Me thod Room Air 04/28/23 12:49 Discharge Plan Discharge Condition: Stable Prescriptions: No Action alprazolam 0.5 mg tablet 0.5 mg PO BID PRN (Reason: anxiety) Qty: 60 3RF Abilify 5 mg tablet 5 mg PO QAM Qty: 90 2RF gabapentin 300 mg capsule 300 mg PO BEDTIME Qty: 90 2RF venlafaxine [Effexor XR] 75 mg capsule,extended release 24hr 75 mg PO QAM Qty: 90 2RF hydrochlorothiazide 25 mg tablet 25 mg PO QAM Qty: 90 1RF oxybutynin chloride 5 mg tablet 5 mg PO QAM Qty: 90 1RF metoprolol tartrate 25 mg tablet 25 mg PO BID amiodarone 200 mg tablet See Rx Instructions .ROUTE .COMPLEX Qty: 90 0RF Dose Instruction: TAKE 1 TABLET BY MOUTH DAILY Rx Instructions: TAKE 1 TABLET BY MOUTH DAILY atorvastatin 20 mg tablet 20 mg PO QAM trazodone 50 mg tablet 50 mg PO BEDTIME PRN (Reason: insomnia) Eliquis 5 mg tablet 5 mg PO BID levothyroxine 25 mcg tablet 25 mcg PO QAM Tylenol Ex Str Rapid Release 500 mg Tablet 1,000 mg PO .ONE TIME DOSE naproxen 500 mg Tablet 500 mg PO .ONE TIME DOSE Referrals: Genie Vences DO [Primary Care Provider] - Coding Level of Care Code ED Account Assistant for Tayo Thorne
--- NOTE | 2023-04-28 13:57 | W.ED.EXTPRO ---
HPI - Extremity Problem General: Chief complaint: Extremity Injury, Upper Stated complaint: left middle finger pain Time Seen by Provider: 04/28/23 13:32 History of Present Illness: 67-year-old female presents emergency department with complaints of increased pain and redness to her left middle finger. The patient was seen here in the emergency department previously for a severely infected left finger and was sent to [facility] in [facility] and had surgical intervention and debridement. She presents today with her daughter and concerns of pain and wound reevaluation. Patient states she has not made her follow-up appointment for surgery. She states she continues to smoke cigarettes but is wishing to quit and states that she is taking naproxen which was prescribed to her but is still having significant pain. Review of Systems General: Reports: 10 or more systems reviewed and unremarkable except in HPI and below Musc: Reports: extremity pain and extremity swelling [facility] ED PFSH: Medical History Smoking addiction Psychiatric care Chronic low back pain with sciatica Benign essential HTN Enrolled in chronic care management Bereavement Chronic post-traumatic stress disorder Generalized anxiety disorder Major depressive disorder, recurrent severe without psychotic features Surgical History History of open heart surgery History of ear surgery History of back surgery H/O total hysterectomy No pertinent past surgical history Family History Father Heart disease Grandmother Cancer Brother Hepatitis B Other CAD (coronary artery disease) Diabetes Hyperlipidemia Hypertension Psychiatric illness Social History Smoking and tobacco/nicotine status: former use of tobacco/nicotine Quit status (tobacco/nicotine): has tried quititng Number of times tried to quit tobacco: 1 Second hand smoke exposure: Yes Alcohol intake: former Year of sobriety/quit date alcohol: 2019 Substance/Drug Use: former Date of last use: 1998 Adopted: No Caregiver/support person: No Lives independently: Yes Household members: family Housing: House Marital status: / Number of children: 3 Number of grandchildren: 5 Highest education level completed: Associate Degree: Occupational, Technical, Vocational Program 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, 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 [employer]) status: Medically Discharged/Retired branch: [employer] Assignments: Inside [facility] Known or Potential Exposure: None Current occupational status: disabled Pets and animals: Yes Pets & animals: cat(s), dog(s) and guinea pig(s) Leisure activites: art and volunteer work Sexually active: No Do you think of yourself as: Straight/Heterosexual Current gender identity: Female Sharon/Samaritan: Jainism Special sharon needs: No Agree to transfusion: Yes Female Reproductive History: Para: 3 Spontaneous abortions: Yes Physical Exam Narrative: EXAM NARRATIVE: Constitutional: the patient appears well nourished and of normal development. Vital signs as documented. No acute distress at present. Alert and oriented-to person, place, time and situation. Head, eyes, ears, nose, mouth, throat: Normocephalic, atraumatic. Pupils-equal, round, reactive to light. No scleral icterus. Normal-appearing external ears. Normal appearing nasal turbinates, no drainage. No obvious oral lesions, posterior oropharynx without erythema or exudates. Neck: Supple, trachea is midline, no lymphadenopathy, no jugular venous distension, thyromegaly, or carotid bruits. Carotid upstrokes are brisk bilaterally. Lungs: clear to auscultation to all lung jacques. Symmetrical rise and fall of chest, no obvious signs of increased work of breathing at present. Cardiac: Regular rate and rhythm, positive S1, S2. No murmurs, rubs or gallops that I can appreciate Abdomen: Soft, non-tender to palpation, normal active bowel sounds to all quadrants. No palpable masses, no organomegaly and abdominal bruits. Extremities: 2+ pulses in the upper extremities that are equal bilaterally, 2+ pulses in the lower extremities that are equal bilaterally. Moves all extremities well, sensation to all extremities are noted. Left third digit appears to be much less swollen than her initial evaluation here in the emergency department when I saw her previously. There is a open draining postsurgical wound to the left distal third digit. It does appear to have improved from previous erythema. Skin: Warm, dry, intact. Course Vital Signs: Vital signs: Vital Signs Temperature 98.7 F 04/28/23 12:49 Pulse Rate 96 04/28/23 14:48 Respiratory Rate 18 04/28/23 14:48 Blood Pressure 148/90 04/28/23 14:48 Pulse Oximetry 96 04/28/23 14:48 Oxygen Delivery Me thod Room Air 04/28/23 12:49 MDM - Extremity (Nontraumatic) Medical Decision Making 67-year-old female presents postoperatively for increased pain and wound evaluation. I will obtain radiographic examination and provide her pain medication while here in the emergency department. I had an extensive discussion with the patient regarding supportive care and treatment as well as the importance of follow-up with her hand surgeon. She stated she wanted to stop smoking and I had a 10 to 15-minute conversation with her regarding smoking cessation and I will provide her nicotine patches to assist her in her smoking cessation. I have also advised her on the importance of taking probiotics to prevent any type of additional GI upset given her antibiotics that she is taking. I also spoke with her regarding taking her antibiotics properly. Medical Records I reviewed the patient's medical records. All radiology interpretation(s) finalized by discharge Discharge Plan Discharge Patient Disposition: Home Clinical Impression: Cellulitis of right finger Condition: Stable Prescriptions: New hydrocodone-acetaminophen 5-325 mg tablet 1 tab PO Q8H PRN (Reason: pain) Qty: 30 0RF nicotine 21-14-7 mg/24 hr patch, TD daily, sequential See Rx Instructions .ROUTE .COMPLEX Qty: 56 0RF Rx Instructions: apply 1-21 mg NICOTINE PATCH daily for 28 days; follow with 1-14 mg PATCH daily for 14 days, then 1-7mg PATCH daily for 14 days No Action alprazolam 0.5 mg tablet 0.5 mg PO BID PRN (Reason: anxiety) Qty: 60 3RF Abilify 5 mg tablet 5 mg PO QAM Qty: 90 2RF gabapentin 300 mg capsule 300 mg PO BEDTIME Qty: 90 2RF venlafaxine [Effexor XR] 75 mg capsule,extended release 24hr 75 mg PO QAM Qty: 90 2RF hydrochlorothiazide 25 mg tablet 25 mg PO QAM Qty: 90 1RF oxybutynin chloride 5 mg tablet 5 mg PO QAM Qty: 90 1RF metoprolol tartrate 25 mg tablet 25 mg PO BID amiodarone 200 mg tablet See Rx Instructions .ROUTE .COMPLEX Qty: 90 0RF Dose Instruction: TAKE 1 TABLET BY MOUTH DAILY Rx Instructions: TAKE 1 TABLET BY MOUTH DAILY atorvastatin 20 mg tablet 20 mg PO QAM trazodone 50 mg tablet 50 mg PO BEDTIME PRN (Reason: insomnia) Eliquis 5 mg tablet 5 mg PO BID levothyroxine 25 mcg tablet 25 mcg PO QAM Tylenol Ex Str Rapid Release 500 mg Tablet 1,000 mg PO .ONE TIME DOSE naproxen 500 mg Tablet 500 mg PO .ONE TIME DOSE Discharge Orders: Discharge ED (Routine); Ordered 04/28/23 Ordered By: Heriberto Doan Referrals: Genie Vences DO [Primary Care Provider] - Discharge Diet: Advance as tolerated Discharge Activity: Resume usual activity Patient Instructions: Opioid Safety, Pain Management Activity Restrictions/Additional Instructions: I have provided you pain medication to take that you should take prior to doing your range of motion therapy to help decrease your pain before and after your therapy for your hand. It is extremely important to take your antibiotics as prescribed and to take and eat something approximately 30 to 45 minutes prior to taking your antibiotic to help decrease the irritation to your stomach Use antibacterial soap to cleanse your wound 2-3 times daily and pat dry then apply a dressing once the wound has been dried after cleansing. I have provided you prescription for nicotine patches to help you with your smoking cessation. It is important to take a probiotic to help prevent any side effects of diarrhea from antibiotic use. Is also very important to call your hand surgeon to make sure you have your postoperative hand surgery follow-up appointment and to keep that appointment so they can evaluate the progress and healing of your wound. Coding Level of Care Code ED Railway Shunter for Tayo Thorne
[2023-04-28] MEDS: HYDROcodone-acetaminophen 10-325 mg Tablet 1 TAB PO (14:26)
[2023-04-28 14:48] VITALS: BP 148/90; PULSE 96; RESP 18; O2SAT 96
== END 2023-04-28 14:49 | disposition home or self-care (01) ==
PROVIDERS: Emergency Provider Internal Medicine; PCP Family Medicine
DX: L03.012 Cellulitis of left finger (principal); Z79.01 Long term (current) use of anticoagulants; Z87.891 Personal history of nicotine dependence; I10 Essential (primary) hypertension
CPT/HCPCS: 73130; 99283

== ENCOUNTER → 2023-05-22 08:06 | Outpatient (BNVA) | payer MEDICARE, MEDICAID, OTHER, SELFPAY ==
[2020-07-05 09:54] VITALS: BP 123/86; BMI 20.9
== END ==
PROVIDERS: PCP Family Medicine; Visit Provider Student in an Organized Health Care Education/Training Program
DX: M79.645 Pain in left finger(s) (principal); M86.8X4 Other osteomyelitis, hand
CPT/HCPCS: 73130; 99204

== ENCOUNTER → 2023-05-28 10:51 | Day surgery (SDC) | payer MEDICARE, MEDICAID, SELFPAY ==
[2020-07-05 09:54] VITALS: BP 123/86; BMI 20.9
[2023-05-28] VITALS (7 sets, daily range): BP systolic 113–141; BP diastolic 66–81; PULSE 62–70; RESP 16–17; TEMP 36.1–36.6; O2SAT 97–100; BMI 20.9
--- NOTE | 2023-05-28 11:21 | ANES.PREANE2 ---
Pre-Anesthetic Assessment Height/Weight: Height 1.68 m Operation Date: 05/28/23 12:20 Proposed Procedures p Amputation Finger/ LEFT MIDDLE PROXIMAL INTERPHALANGEAL JOINT DISARTICULATION AMPUTATION FINGER(Left) - Connor Arriaza DO s Ray Resection Hand/POSSIBLE GARCIA RESECTION(Left) - Connor Arriaza DO Familial anesthetic complications: None Was Beta Kian taken within 24 hours: N/A Was Clonidine taken within 24 hours: N/A Last intake: > 8 hrs Social Tobacco and No alcohol Exam alert, oriented x 3, clear to auscultation bilaterally and regular rate & rhythm Airway Mallampati: Class II Dentition: other (multiple missing) CV/HEM Atrial Fibrillation, Coronary Artery Disease and Hypertension Hx L atrial thrombus Born with what sounds like PFO or VSD (hole in my heart that was supposed to close but never did) that had to be corrected with open heart surgery no cardiac symptoms or functional limitations during her life. Metabolic Thyroid Disease Anesthetic Plan ASA status: 3 Anesthesia: Choice Risk of > 500 ml blood loss (7ml/kg in children): No Medications/Allergies Home Medications Medication Instructions Recorded Confirmed Last Taken Type atorvastatin 20 mg tablet 20 mg PO QAM 12/17/22 05/27/23 05/27/23 History alprazolam 0.5 mg tablet 0.5 mg PO BID PRN anxiety #60 tabs 12/31/22 05/27/23 05/26/23 Rx aripiprazole 5 mg tablet (Abilify) 5 mg PO QAM #90 tabs 12/31/22 05/22/23 05/27/23 Rx gabapentin 300 mg capsule 300 mg PO BEDTIME #90 caps 12/31/22 05/27/23 05/27/23 Rx venlafaxine 75 mg capsule,extended 75 mg PO QAM #90 caps 12/31/22 05/27/23 05/27/23 Rx release 24 hr (Effexor XR) hydrochlorothiazide 25 mg tablet 25 mg PO QAM #90 tabs 01/17/23 05/27/23 05/27/23 Rx metoprolol tartrate 25 mg tablet 25 mg PO BID 01/17/23 05/27/23 05/27/23 History oxybutynin chloride 5 mg tablet 5 mg PO QAM #90 tabs 01/17/23 05/27/23 05/27/23 Rx apixaban 5 mg tablet (Eliquis) 5 mg PO BID 04/13/23 05/27/23 05/27/23 History trazodone 50 mg tablet 50 mg PO BEDTIME PRN insomnia 04/13/23 05/27/23 Unknown History nicotine See Rx Instructions transdermal 04/28/23 05/27/23 05/27/23 Rx 21mg/24hr-14mg/24hr-7mg/24hr daily .COMPLEX #56 patches transderm patches,sequentl levothyroxine 25 mcg tablet 25 mcg PO QAM #90 tabs 05/02/23 05/27/23 05/27/23 Rx sulfamethoxazole 800 1 tab PO BID #20 tabs 05/22/23 05/27/23 05/28/23 Rx mg-trimethoprim 160 mg tablet (Bactrim DS) amiodarone 200 mg tablet 200 mg PO DAILY 05/27/23 05/27/23 05/27/23 History Allergies Allergy/AdvReac Type Severity Reaction Status Date / Time No Known Allergies Allergy Verified 05/22/23 07:59 [facility] Anesthesia Medical History Smoking addiction Psychiatric care Chronic low back pain with sciatica Benign essential HTN Enrolled in chronic care management Bereavement Chronic post-traumatic stress disorder Generalized anxiety disorder Major depressive disorder, recurrent severe without psychotic features Surgical History History of open heart surgery History of ear surgery History of back surgery H/O total hysterectomy No pertinent past surgical history Family History Father Heart disease Grandmother Cancer Brother Hepatitis B Other CAD (coronary artery disease) Diabetes Hyperlipidemia Hypertension Psychiatric illness Social History Smoking and tobacco/nicotine status: former use of tobacco/nicotine Quit status (tobacco/nicotine): has tried quititng Number of times tried to quit tobacco: 1 Second hand smoke exposure: Yes Alcohol intake: former Year of sobriety/quit date alcohol: 2019 Substance/Drug Use: former Date of last use: 1998 Adopted: No Caregiver/support person: No Lives independently: Yes Household members: family Housing: House Marital status: / Number of children: 3 Number of grandchildren: 5 Highest education level completed: Associate Degree: Occupational, Technical, Vocational Program 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, 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: Medically Discharged/Retired branch: [employer] Assignments: Inside [facility] ([facility]) Known or Potential Exposure: None Current occupational status: disabled Pets and animals: Yes Pets & animals: cat(s), dog(s) and guinea pig(s) Leisure activites: art and volunteer work Sexually active: No Do you think of yourself as: Straight/Heterosexual Current gender identity: Female Sharon/Roman Catholic: Muslim Special sharon needs: No Agree to transfusion: Yes Female Reproductive History Para: 3 Spontaneous abortions: Yes Data Anesthesia Cardiac Studies: Echocardiogram 11/06/21 Transesophageal Echocardiogram 11/08/21
[2023-05-28] MEDS: sodium chloride 0.9% 1,000 ML 30 ML IV (11:39)
[2023-05-28] MEDS: acetaminophen 1,000 MG/100 ML PIGGYBACK 400 MG IV (11:40)
[2023-05-28] MEDS: ketorolac 30 mg/mL INJ IVP (11:40)
[2023-05-28] MEDS: scopolamine 1.5 Patch 1 PATCH TRANSDERMA (11:43)
[2023-05-28 11:48] LABS: Basophils # 0.1 10^3/uL (0.0-0.1); Eosinophils # 0.3 10^3/uL (0.0-0.8); Eosinophils % 3.2 %; Hematocrit 40.6 % (36-47); Lymphocytes # 2.4 10^3/uL (0.8-4.8); Lymphocytes % 31.2 %; Mean Corpuscular Hemoglobin 30.6 pg (27-33); Mean Corpuscular Volume 95.5 fl (85-98); Mean Platelet Volume 11.7 fL (7.4-10.4); Monocytes # 0.6 10^3/uL (0.2-0.9); Monocytes % 7.1 %; Neutrophils # 4.42 10^3/uL (1.8-7.7); Neutrophils % 57.2 %; Nucleated Red Blood Cells % 0 %; Platelet Count 234 10^3/cmm (157-399); Red Blood Count 4.25 10^6/uL (3.85-5.65); Red Cell Distribution Width 14.3 % (12.1-15.1); White Blood Count 7.73 10^3/uL (3.29-11.43)
--- NOTE | 2023-05-28 11:51 | W.PM.OPSUD ---
Surgery/Procedure H&P Update DATE OF PROCEDURE: May 28, 2023 DATE H&P PERFORMED: 05/22/23 H&P UPDATE INFORMATION: I have reviewed H&P completed within last 30 days, I have examined patient prior to procedure and No changes to prior documentation PREOP DIAGNOSIS: Left middle finger osteomyelitis of distal phalanx and middle phalanx PRIMARY INDICATION FOR PROCEDURE: Left middle finger osteomyelitis and finger infection distal phalanx and middle phalanx at DIP joint PLANNED PROCEDURE: Operation Date: 05/28/23 12:20 Proposed Procedures p Amputation Finger/ LEFT MIDDLE PROXIMAL INTERPHALANGEAL JOINT DISARTICULATION AMPUTATION FINGER(Left) - Connor Arriaza DO s Ray Resection Hand/POSSIBLE GARCIA RESECTION(Left) - Connor Arriaza DO
--- NOTE | 2023-05-28 11:59 | ECG_ITS ---
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 Measurements Intervals Saxton Rate: 60 P: 0 CA: 0 QRS: 52 QRSD: 98 T: 76 QT: 489 QTc: 491 Interpretive Statements SUPRAVENTRICULAR RHYTHM PROLONGED QT INTERVAL Compared to ECG 12/17/2022 07:46:01 Supraventricular rhythm now present Prolonged QT interval now present Sinus rhythm no longer present Sinus arrhythmia no longer present Electronically Signed On 05-29-2023 10:54:57 FILLING MACHINE TENDER by Suly Watters M.D. [id number]
[2023-05-28 12:24] LABS: Blood Urea Nitrogen 10 mg/dL (8-23); Calcium 8.9 mg/dL (8.5-10.5); Carbon Dioxide 25 mmol/L (22-29); Chloride 103 mmol/L (98-107); Glomerular Filtration Rate 62.8 mL/min (90-130); Glucose 84 mg/dL (65-115); Osmolality Calculated 286 mOsm/kg (285-295); Sodium 139 mmol/L (136-145)
[2023-05-28 12:27] LABS: Anion Gap 15.8 (5-19); Potassium 4.8 mmol/L (3.5-5.1)
[2023-05-28] MEDS: ceFAZolin 2,000 MG in sodium chloride 0.9% (plus) 50 ML 100 MG IV (12:38)
[2023-05-28] MEDS: ROPivacaine 0.5% SDV 30 mL 150 MG INJECTION (13:00)
--- NOTE | 2023-05-28 13:42 | W.PM.BPON ---
Date of Procedure: [May 28, 2023] Surgeon: [Dr. Arriaza DO] Machining Engineer(s): [Chandler Arriaza PA-C] Procedure(s) performed: [Left middle finger amputation at PIP joint] Findings of the procedure(s): [Left middle finger osteomyelitis] Estimated blood loss: [2 ml] Specimen(s) removed: [Left distal middle finger-sent to lab] Post-operative diagnosis: [Left middle finger osteomyelitis]
--- NOTE | 2023-05-28 13:53 | PM.PACU ---
PACU note Narrative: Patient is 67-year-old female that just underwent a left middle finger amputation. Patient transferred to PACU in stable condition. Pain is well controlled. Dressing on hand is dry and in place. Patient's fingers are warm and well-perfused. Patient can wiggle fingers. normal cap refill under 2 seconds. Patient has normal elbow range of motion. Unable to assess sensation due to residual localized anesthetic. Exam: awake Disposition: discharged
[2023-05-28] MEDS: lidocaine 2% INJ 20 mL INJECTION (13:58)
--- NOTE | 2023-05-28 14:40 | ANE.PACU2 ---
Inpatient post-anesthesia follow up: Airway intact: Yes Vital signs: Temperature 97 F Pulse Rate 68 Respiratory Rate 16 Blood Pressure 122/66 Pulse Oximetry 99 Oxygen Delivery Me thod Room Air Oxygen Flow Rate Fraction of Inspir ed Oxygen Hydration adequate: Yes Nausea and vomiting: No Pain level: 1 Mental status: Baseline
--- NOTE | 2023-05-28 15:22 | PM.OP ---
Operative Report Date of procedure: May 28, 2023 Pre-op diagnosis: Osteomyelitis left middle finger Post-op diagnosis: Same Post-op findings: See operative report narrative Procedure done: Left middle finger amputation at PIP joint Specimens removed/disposition: Left middle finger amputation removed and sent for path Surgeon: Connor Arraiza DO Clinical Laboratory Technologist: Chandler Arriaza PA-C: HEATHER was necessary for assistance in this case with hand positioning to execute the procedure, retraction and protection of neurovascular structures as well as to assist with wound closure and dressing application. Anesthesia: MAC and Local Estimated blood loss (mL): 2 34min IV fluids: 700mL Complications: None Condition: stable Disposition: same day Brief History: Patient is a 67-year-old female with osteomyelitis of the left middle finger particularly at the DIP joint with evidence of osteomyelitis changes at the middle phalanx and distal phalanx we talked about treatment options in detail she is already been on antibiotics she has chronic wound dorsally over the DIP joint significant erosive changes and no motion at the DIP joint we talked about her options and through shared decision making she elects proceed with a left middle finger amputation at the level of the PIP joint to completely excise and have clean boundaries. We did talk about if the infection is excessively proximal we could potentially have to perform resection she understands incidence procedure the risk benefits complication alternatives of surgery through shared decision making lets proceed with surgical intervention. All questions answered. Procedure: Patient seen evaluated in the preoperative holding area. Consent was reviewed and signed with patient correct extremity and digit was then subsequently marked. All questions were answered. As well as the ins and outs procedure. Patient was then seen evaluated by anesthesia once cleared for surgery patient was taken back to the operative suite kept on the [facility] and armboard was applied to the left upper extremity. The patient then subsequently underwent anesthesia per the anesthesia department once properly anesthetized a nonsterile tourniquet applied left upper arm. This point time the left upper extremity was then prepped and draped in standard orthopedic fashion. Final timeout performed. Patient received appropriate preoperative antibiotics. I subsequently utilized a finger turnicot. I performed a sterile digital block of the left middle finger to help with postoperative pain control as well as perioperative pain. Next I subsequently placed a finger turnicot on. I then proceeded with a standard fishmouth incision over the PIP joint as this was in hopes to salvage as much of the finger as possible. As patient's wound and swelling and erythema was over the DIP joint as well as the middle phalanx. Upon my incision there was no evidence of purulence or infection tracking proximally in the flexor tendon sheath. With a fishmouth incision made directly over full-thickness skin flaps were then subsequently made at first before making deep incision subsequently dissected out the digital neurovascular bundles and performed cautery of the digital arteries as well as traction neurectomies of the nerves. Then subsequently excised the extensor tendon under traction as well as the flexor tendon under traction. Once this was done I then utilized sharp scalpel excision to completely disarticulate the finger at the PIP joint. This was then subsequently removed and sent for pathology. At this point in time no need for ray resection was determined as there is no tracking erythema and all of the tissue appeared to be viable with no signs of infection. At this point in time I utilized a rongeur to remove the condyles as well as remove the excess articular surface of the proximal phalanx to allow for appropriate scarring I utilized a rasp to smooth off the edges. Then thoroughly irrigation was then subsequently performed. Then subsequently utilized 0 Vicryl suture to then reapproximate the deep soft tissue of the extensor tendon into the volar plate structures over the condyle for appropriate padding and then subsequently contoured the skin edges for appropriate closure under no tension. Tourniquet deflated hemostasis satisfactory subsequently closed the incision with interrupted nylon sutures had appropriate contouring noted. Then subsequently dressing was then applied of bulky soft dressing of Xeroform 4 x 4's Curlex Wan wrap and an Murali wrap. Patient was then awake from anesthesia and taken to PACU in stable condition. Patient tolerated procedure without any issues or complications. Disposition Patient taken to PACU in stable condition recovering well received appropriate discharge instructions as well as pain medication postoperatively. Will place her on empiric antibiotics in the short interim course while incision is healing. We did have appropriate margins he feels all infection has been completely excised we will follow-up on with patient in 2 weeks hopefully suture removal. Patient understands and agrees with current plan. Questions answered.
== END | disposition home or self-care (01) ==
PROVIDERS: PCP Family Medicine; Visit Provider Student in an Organized Health Care Education/Training Program
PROC: (CPT 26951; principal; 2023-05-28 12:20)
DX: M86.8X4 Other osteomyelitis, hand (principal); I10 Essential (primary) hypertension; Z87.891 Personal history of nicotine dependence
CPT/HCPCS: 26910; 36415; 80048; 85025; 88305; 88311; 93005; J0131; J0690; J1885; J2250; J2704; J2795; J3010; J7030

== ENCOUNTER → 2023-06-12 13:38 | Outpatient (BNVA) | payer MEDICARE, MEDICAID, SELFPAY ==
[2020-07-05 09:54] VITALS: BP 123/86; BMI 20.9
== END ==
PROVIDERS: PCP Family Medicine; Visit Provider Physician Assistant
DX: Z89.022 Acquired absence of left finger(s) (principal)
CPT/HCPCS: 99024

== ENCOUNTER → 2023-10-21 14:23 | Outpatient (BNVA) | payer MEDICARE, OTHER, SELFPAY ==
[2020-07-05 09:54] VITALS: BP 123/86; BMI 20.9
== END ==
PROVIDERS: PCP Family Medicine; Visit Provider Internal Medicine
DX: I48.92 Unspecified atrial flutter (principal); E78.5 Hyperlipidemia, unspecified; M54.42 Lumbago with sciatica, left side; M54.41 Lumbago with sciatica, right side; G89.29 Other chronic pain; I10 Essential (primary) hypertension; I51.3 Intracardiac thrombosis, not elsewhere classified; Z87.891 Personal history of nicotine dependence
CPT/HCPCS: 99214

== ENCOUNTER → 2024-01-02 10:41 | Outpatient (BNVA) | payer MEDICARE, MEDICAID, SELFPAY ==
[2020-07-05 09:54] VITALS: BP 123/86; BMI 20.9
== END ==
PROVIDERS: PCP Family Medicine; Visit Provider Nurse Practitioner Psychiatric/Mental Health
DX: Z79.899 Other long term (current) drug therapy (principal)
CPT/HCPCS: 80053; 80061; 83036

== ENCOUNTER 2024-03-09 09:22 | Outpatient (CLI) | payer MEDICARE, MEDICAID, SELFPAY ==
[2020-07-05 09:54] VITALS: BP 123/86; BMI 20.9
--- NOTE | 2024-03-09 09:23 | MM_ITS ---
WS: [id number] BILATERAL 3D TOMOSYNTHESIS DIGITAL SCREENING MAMMOGRAPHY WITH CAD CLINICAL INFORMATION: SCREENING HISTORY: Screening mammogram. No current complaints. COMPARISON: 2022 TECHNIQUE: Bilateral CC and MLO views. FINDINGS: Scattered fibroglandular densities bilaterally. No suspicious focal mass, asymmetry, calcifications, or architectural distortion. No evidence of malignancy. Vascular calcification. MM/MM scr tomosynthesis [id number] IMPRESSION: DENSITY: There are scattered areas of fibroglandular density. BI-RADS: 2 - Benign. FOLLOW UP: 1 Year Follow-up Recommend return to annual screening mammography.
== END 2024-03-09 09:23 | disposition home or self-care (01) ==
LOC: RAD 09:23
PROVIDERS: PCP Family Medicine; Visit Provider Family Medicine
DX: Z12.31 Encounter for screening mammogram for malignant neoplasm of breast (principal); R92.323 Mammographic fibroglandular density, bilateral breasts; R92.1 Mammographic calcification found on diagnostic imaging of breast
CPT/HCPCS: 77063; 77067

== ENCOUNTER → 2024-03-16 08:48 | Outpatient (BNVA) | payer MEDICARE, MEDICAID, SELFPAY ==
[2020-07-05 09:54] VITALS: BP 123/86; BMI 20.9
== END ==
PROVIDERS: PCP Family Medicine; Visit Provider Family Medicine
DX: E03.9 Hypothyroidism, unspecified (principal)
CPT/HCPCS: 80048; 84439; 84443

== ENCOUNTER → 2024-07-19 13:59 | Outpatient (BNVA) | payer MEDICARE, SELFPAY ==
[2020-07-05 09:54] VITALS: BP 123/86; BMI 20.9
== END ==
PROVIDERS: PCP Family Medicine; Visit Provider Internal Medicine
DX: I48.20 Chronic atrial fibrillation, unspecified (principal); Z79.01 Long term (current) use of anticoagulants; E78.5 Hyperlipidemia, unspecified; I10 Essential (primary) hypertension; M54.42 Lumbago with sciatica, left side; M54.41 Lumbago with sciatica, right side; G89.29 Other chronic pain; Z86.718 Personal history of other venous thrombosis and embolism; Z72.0 Tobacco use
CPT/HCPCS: 99214

== ENCOUNTER → 2024-08-04 14:10 | Outpatient (BNVA) | payer MEDICARE, OTHER, SELFPAY ==
[2020-07-05 09:54] VITALS: BP 123/86; BMI 20.9
== END ==
PROVIDERS: PCP Family Medicine; Visit Provider Nurse Practitioner Psychiatric/Mental Health
DX: Z79.899 Other long term (current) drug therapy (principal)
CPT/HCPCS: 80053; 80061; 81001; 82306; 83036

== ENCOUNTER → 2024-12-21 11:22 | Outpatient (BNVA) | payer MEDICARE, SELFPAY ==
[2020-07-05 09:54] VITALS: BP 123/86; BMI 20.9
== END ==
PROVIDERS: PCP Family Medicine; Visit Provider Family Medicine
DX: R79.89 Other specified abnormal findings of blood chemistry (principal); E55.9 Vitamin D deficiency, unspecified
CPT/HCPCS: 80053; 82306; 84439; 84443; 85025